=== PATIENT | female | born 1975 | race American Indian/Alaskan Native ===

== ENCOUNTER 2016-10-13 13:33 | Emergency (ER) | payer MEDICAID ==
[2016-10-13 13:33] VITALS: BMI 31.2
[2016-10-13 13:44] VITALS: BP 165/102; PULSE 95; RESP 16; TEMP 98.4; O2SAT 100
[2016-10-13] MEDS ORDERED: Sodium Chloride 0.9% 1,000 ML IV STA (15:37)
[2016-10-13 16:44] LABS: BASO % 0.4 % (0.0-2.0); EOS # 0.1 K/uL (0.0-0.7); EOS % 0.7 % (0.0-4.0); HEMATOCRIT 38.2 % (34.0-47.0); LYMPH # 1.6 K/uL (1.0-4.3); LYMPH % 21.6 % (20.0-40.0); MEAN CELL VOLUME 96.6 fl (81.0-99.0); MEAN CORPUSCULAR HEMOGLOBIN 32.7 pg (27.0-31.0); MEAN CORPUSCULAR HGB CONC 33.8 g/dL (33.0-37.0); MEAN PLATELET VOLUME 7.6 fl (7.2-11.7); MONO # 0.6 K/uL (0.0-0.8); MONO % 8.4 % (0.0-10.0); NEUT # 5.2 K/uL (1.8-7.0); NEUT % 68.9 % (50.0-75.0); NRBC % 0.1 % (0.0-0.0); RED CELL DISTRIBUTION WIDTH 15.8 % (11.5-14.5); WHITE BLOOD COUNT 7.5 K/uL (4.8-10.8)
[2016-10-13 17:00] LABS: ALB/GLOB RATIO 1.1 (1.0-2.1); ALKALINE PHOSPHATASE 91 U/L (38-126); ALT/SGPT 86 U/L (9-52); AST/SGOT 138 U/L (14-36); BILIRUBIN,TOTAL 1.2 mg/dl (0.2-1.3); BLOOD UREA NITROGEN 8 mg/dl (7-17); CALCIUM 9.5 mg/dL (8.4-10.2); CARBON DIOXIDE 25 mmol/L (22-30); CHLORIDE 105 mmol/L (98-107); GFR AFRICAN-AMERICAN > 60; GLUCOSE,RANDOM 103 mg/dL (65-105); LIPASE 316 U/L (23-300); POTASSIUM 3.9 MMOL/L (3.6-5.0); SODIUM 142 mmol/l (132-148); TOTAL PROTEIN 7.8 G/DL (6.3-8.2)
[2016-10-13 17:21] LABS: RBC URINE 3 /hpf (0-3); URINE BACTERIA RARE (<OCC); URINE BILIRUBIN NEGATIVE (NEGATIVE); URINE BLOOD NEGATIVE (NEGATIVE); URINE COLOR YELLOW (YELLOW); URINE GLUCOSE (UA) NEG (Normal); URINE KETONE NEGATIVE (NEGATIVE); URINE LEUKOCYTE ESTERASE NEG Leu/uL (Negative); URINE PROTEIN NEGATIVE (NEGATIVE); URINE UROBILINOGEN 0.2-1.0 mg/dL (0.2-1.0); WBC URINE 1 /hpf (0-5)
--- NOTE | 2016-10-13 17:59 | ED PDOC ---
HPI: General Adult Time Seen by Provider: 10/13/16 15:25 Chief Complaint (Nursing): GI Problem Past Medical History Vital Signs: Last Vital Signs Temp 98.4 F 10/13/16 13:40 Pulse 95 H 10/13/16 13:40 Resp 16 10/13/16 13:40 BP 165/102 H 10/13/16 13:40 Pulse Ox 100 10/13/16 13:40 - Medical History PMH: Diabetes (resolved after bariatic surgery), Gastritis, HTN, Hypercholesterolemia (resolved after bariatric surgery), Sleep Apnea Denies: CAD, CVA, Chronic Kidney Disease - Surgical History Surgical History: - Family History Family History: States: [place], CAD, Diabetes, Hypertension Denies: Stroke - Immunization History Hx Tetanus Toxoid Vaccination: No Hx Influenza Vaccination: No Hx Pneumococcal Vaccination: Yes (prior to sx) - Home Medications Home Medications: Ambulatory Orders Medication Instructions Recorded Omeprazole [Prilosec] 40 mg PO DAILY #30 each 08/21/15 Valsartan 1 tab PO DAILY 02/17/16 Acetaminophen with Codeine 1 tab PO Q6H PRN #15 tab 08/04/16 [Tylenol with Codeine No. 3 300 mg-30 mg] Famotidine [Pepcid] 20 mg PO DAILY PRN #30 tab 10/13/16 Ondansetron ODT [Zofran ODT] 4 mg PO TID #21 odt 10/13/16 - Allergies Allergies/Adverse Reactions: Allergies Allergy/AdvReac Type Severity Reaction Status Date / Time No Known Allergies Allergy Verified 10/13/16 13:40 - Laboratory Results Result Diagrams: 10/13/16 16:00 10/13/16 16:00 - ECG O2 Sat by Pulse Oximetry: 100 Disposition - Clinical Impression Clinical Impression: Gastroenteritis - Patient ED Disposition Is Patient to be Admitted: No - Disposition Disposition: Routine/Home Disposition Time: 17:58 Condition: STABLE Prescriptions: Famotidine [Pepcid] 20 mg PO DAILY PRN #30 tab PRN Reason: Dyspepsia Ondansetron ODT [Zofran ODT] 4 mg PO TID #21 odt Instructions: Gastroenteritis (ED)
--- NOTE | 2016-10-14 08:32 | CARD ---
APPROVED REPORT EKG Measurement Heart [id number] HI [id number] <Conclusion> Sinus rhythm with marked sinus arrhythmia Otherwise normal ECG
== END 2016-10-13 18:04 | disposition home or self-care (01) ==
LOC: H.ER 13:33
DX: K52.9 Noninfective gastroenteritis and colitis, unspecified (principal)

== ENCOUNTER 2016-11-20 19:46 | Inpatient (IN) | payer MEDICAID ==
[2016-11-20 19:46] VITALS: BMI 31.2
[2016-11-20] MEDS ORDERED: Sodium Chloride 0.9% 1,000 ML IV STA ×2 (20:21→21:14)
--- NOTE | 2016-11-20 20:31 | ED PDOC ---
HPI: Abdomen Time Seen by Provider: 11/20/16 20:12 Chief Complaint (Nursing): GI Problem Chief Complaint (Provider): Abdominal pain History Per: Patient History/Exam Limitations: no limitations Onset/Duration Of Symptoms: Days (1) Outside of [place] travel?: No Current Symptoms Are (Timing): Still Present Severity: Moderate Location Of Pain/Discomfort: Epigastric Quality Of Discomfort: "Pain" Associated Symptoms: Vomiting, Diarrhea Additional History Per: Patient Additional Complaint(s): The pt is a 41yo female, had a gastric bypass 2 years ago, presents to the ED for evaluation of epigastric pain with associated nausea, vomiting and diarrhea since this morning. Pt admits to drinking alcohol last night and states when she went home, noticed epigastric discomfort followed y more than 5 episodes of vomiting, initially food colored, then blood tinged and now clear. She also reports 2 episodes of water diarrhea. Pt denies fever, offers no medical complaints. Abnormal Vaginal Bleeding: No Past Medical History Reviewed: Historical Data, Nursing Documentation, Vital Signs Vital Signs: Last Vital Signs Temp 98.7 F 11/20/16 19:59 Pulse 107 H 11/20/16 19:59 Resp 18 11/20/16 19:59 BP 151/103 H 11/20/16 19:59 Pulse Ox 98 11/20/16 20:33 - Medical History PMH: Diabetes (resolved after bariatic surgery), Gastritis, HTN, Hypercholesterolemia (resolved after bariatric surgery) Denies: CAD, CVA, Chronic Kidney Disease, Sleep Apnea - Surgical History Surgical History: - Family History Family History: States: [place], CAD, Diabetes, Hypertension Denies: Stroke - Immunization History Hx Tetanus Toxoid Vaccination: No Hx Influenza Vaccination: No Hx Pneumococcal Vaccination: Yes (prior to sx) - Home Medications Home Medications: Ambulatory Orders Medication Instructions Recorded Lansoprazole [Prevacid] 30 mg PO DAILY 11/20/16 Lisinopril/Hydrochlorothiazide 10 mg PO DAILY 11/20/16 [Lisinopril-Hctz 10-12.5 mg Tab] - Allergies Allergies/Adverse Reactions: Allergies Allergy/AdvReac Type Severity Reaction Status Date / Time No Known Allergies Allergy Verified 10/13/16 13:40 Review of Systems ROS Statement: Except As Marked, All Systems Reviewed And Found Negative Constitutional: Negative for: Fever Gastrointestinal: Positive for: Vomiting, Abdominal Pain, Diarrhea Physical Exam - Reviewed Nursing Documentation Reviewed: Yes Vital Signs Reviewed: Yes - Physical Exam Appears: Positive for: Well, Non-toxic, No Acute Distress Head Exam: Positive for: ATRAUMATIC, NORMAL INSPECTION, NORMOCEPHALIC Skin: Positive for: Normal Color ENT: Positive for: Normal ENT Inspection Neck: Positive for: Normal Cardiovascular/Chest: Positive for: Regular Rate, Rhythm Respiratory: Negative for: Respiratory Distress Gastrointestinal/Abdominal: Positive for: Soft, Tenderness (epig). Negative for : Guarding, Rebound Neurologic/Psych: Positive for: Alert, Oriented - Laboratory Results Result Diagrams: 11/20/16 20:30 11/20/16 20:30 - ECG O2 Sat by Pulse Oximetry: 98 Medical Decision Making Medical Decision Making: Time: 2019 Impression: Gastroenteritis Plan: * Bloodwork * IV fluids * Urinalysis * Protonix * Zofran * Reassess 0000 IMPRESSION: Findings consistent with acute pancreatitis, as detailed above Pt. still having pain and vomiting, will admit for acute pancreatitis, placed on NPO. Dr. Piedra informed of admission. Scribe Attestation: Documented by Molly Palomares acting as a scribe for Dameon Barcenas MD. Provider Attestation: All medical record entries made by the Scribe were at my direction and personally dictated by me. I have reviewed the chart and agree that the record accurately reflects my personal performance of the history, physical exam, medical decision making, and the department course for this patient. I have also personally directed, reviewed, and agree with the discharge instructions and disposition. Disposition - Clinical Impression Clinical Impression: Pancreatitis - Patient ED Disposition Is Patient to be Admitted: No - Disposition Disposition Time: 00:00 Condition: STABLE
[2016-11-20] MEDS ORDERED: Sterile Water 10 ML IV ONE (20:35)
[2016-11-20 20:45] LABS: RBC URINE 2 /hpf (0-3); URINE BILIRUBIN NEGATIVE (NEGATIVE); URINE BLOOD NEGATIVE (NEGATIVE); URINE COLOR YELLOW (YELLOW); URINE GLUCOSE (UA) NEG (Normal); URINE KETONE NEGATIVE (NEGATIVE); URINE LEUKOCYTE ESTERASE NEG Leu/uL (Negative); URINE PROTEIN NEGATIVE (NEGATIVE); URINE UROBILINOGEN 0.2-1.0 mg/dL (0.2-1.0); WBC URINE 1 /hpf (0-5)
[2016-11-20 20:48] LABS: BASO % 0.3 % (0.0-2.0); EOS % 0.5 % (0.0-4.0); HEMATOCRIT 38.6 % (34.0-47.0); LYMPH # 1.4 K/uL (1.0-4.3); LYMPH % 14.9 % (20.0-40.0); MEAN CELL VOLUME 100.8 fl (81.0-99.0); MEAN CORPUSCULAR HEMOGLOBIN 34.8 pg (27.0-31.0); MEAN CORPUSCULAR HGB CONC 34.5 g/dL (33.0-37.0); MEAN PLATELET VOLUME 6.9 fl (7.2-11.7); MONO # 0.5 K/uL (0.0-0.8); MONO % 5.6 % (0.0-10.0); NEUT # 7.3 K/uL (1.8-7.0); NEUT % 78.7 % (50.0-75.0); NRBC % 0.1 % (0.0-0.0); WHITE BLOOD COUNT 9.3 K/uL (4.8-10.8)
[2016-11-20 20:56] LABS: ALB/GLOB RATIO 1.3 (1.0-2.1); ALCOHOL SERUM 90 mg/dl (0-10); ALKALINE PHOSPHATASE 82 U/L (38-126); ALT/SGPT 56 U/L (9-52); AST/SGOT 68 U/L (14-36); BILIRUBIN,TOTAL 0.4 mg/dl (0.2-1.3); BLOOD UREA NITROGEN 7 mg/dl (7-17); CALCIUM 9.4 mg/dL (8.4-10.2); CARBON DIOXIDE 25 mmol/L (22-30); CHLORIDE 102 mmol/L (98-107); GFR AFRICAN-AMERICAN > 60; GLUCOSE,RANDOM 105 mg/dL (65-105); LIPASE 920 U/L (23-300); POTASSIUM 3.9 MMOL/L (3.6-5.0); SODIUM 140 mmol/l (132-148); TOTAL PROTEIN 7.4 G/DL (6.3-8.2)
[2016-11-20] MEDS ORDERED: Iohexol 240 (50 ml) PO ONE (21:14)
[2016-11-20] MEDS ORDERED: Iohexol 300 100 ML IJ ONE (23:27)
[2016-11-20] MEDS ORDERED: Sodium Chloride 0.9% 50 ML IV ONE (23:28)
--- NOTE | 2016-11-21 00:12 | CT ---
EXAM: CT Abdomen and Pelvis With Intravenous Contrast CLINICAL HISTORY: 41 years old, female; Pain; Abdominal pain; Epigastric; Prior surgery; Surgery date: 6+ months; Surgery type: Gastric bypass 01/2015; Additional info: HX of gastric bypass, elevated lipase- epig pain TECHNIQUE: Axial computed tomography images of the abdomen and pelvis with intravenous contrast. This CT exam was performed using one or more of the following dose reduction techniques: automated exposure control, adjustment of the mA and/or kV according to patient size, and/or use of iterative reconstruction technique. Coronal and sagittal reformatted images were created and reviewed. CONTRAST: 95 mL of [id number] administered intravenously. COMPARISON: US - ABDOMEN COMPLETE 08/21/2015 5:39:17 PM FINDINGS: Lower thorax: The bilateral lung bases are clear. ABDOMEN: Liver: No acute findings. Gallbladder and bile ducts: The gallbladder is decompressed. No calcified stones. No significant intra- or extrahepatic biliary ductal dilation. Pancreas: Enlargement of the head of the pancreas, with edema and loss of normal fatty lobulation. Peripancreatic fat stranding is also present, along with moderate free fluid in the lesser sac extending to the retroperitoneum and within the right hepatorenal space. The pancreas enhances homogeneously, without areas suggesting necrosis. Spleen: No acute findings. Adrenals: No acute findings. Kidneys and ureters: No acute findings. No hydronephrosis or renal calculi. No discrete solid mass. PELVIS: Bladder: No acute findings. Reproductive: No acute findings. Appendix: The air filled appendix is of normal caliber (series 3, image 118; series 601, image 47). ABDOMEN and PELVIS: Stomach and bowel: Postoperative change within the upper abdomen, consistent with prior gastric bypass. Peritoneum: As above. Lymph nodes: No pathologically enlarged lymph nodes. Vasculature: Unremarkable. Bones: No acute fracture. Dense infiltration of the soft tissues of the buttock, findings suggesting prior silicone injection, unchanged from description 08/24/2016. IMPRESSION: Findings consistent with acute pancreatitis, as detailed above.
[2016-11-21] MEDS ORDERED: Metoprolol 1 mg/ml Inj IVP ONE (01:54)
[2016-11-21] MEDS ORDERED: Metoprolol 1 mg/ml Inj IVP STA (01:58)
[2016-11-21] MEDS: Sodium Chloride 0.9% 1,000 ML IV SCH ×3 (04:26→19:45)
[2016-11-21] MEDS ORDERED: [UNRECOGNIZED DRUG - OTHER] PO SCH (09:00)
[2016-11-21] MEDS ORDERED: HYDROCHLOROTHIAZIDE PO SCH (09:00)
[2016-11-21] MEDS ORDERED: LISINOPRIL PO SCH (09:00)
--- NOTE | 2016-11-21 16:00 | CP.PCM.HP ---
History of Present Illness - History of Present Illness History of Present Illness: The pt is a 41yo female, had a gastric bypass 2 years ago, presents to the ED for evaluation of epigastric pain with associated nausea, vomiting and diarrhea since this morning. Pt admits to drinking alcohol last night and states when she went home, noticed epigastric discomfort followed y more than 5 episodes of vomiting, initially food colored, then blood tinged and now clear. Present on Admission - Present on Admission Any Indicators Present on Admission: Yes Review of Systems - Gastrointestinal Gastrointestinal: Loose Stools, Vomiting Past Patient History - Infectious Disease Hx of Infectious Diseases: None - Past Medical History & Family History Past Medical History?: Yes - Past Social History Smoking Status: Former Smoker Alcohol: > 2 Drinks/Day - CARDIAC Hx Hypercholesterolemia: Yes (resolved after bariatric surgery) Hx Hypertension: Yes - PULMONARY Hx Respiratory Disorders: No Hx Sleep Apnea: No - NEUROLOGICAL Hx Neurological Disorder: No - HEENT Hx HEENT Problems: No - RENAL Hx Chronic Kidney Disease: No - ENDOCRINE/METABOLIC Hx Endocrine Disorders: No - HEMATOLOGICAL/ONCOLOGICAL Hx AIDS: No Hx Human Immunodeficiency Virus (HIV): No - INTEGUMENTARY Hx Dermatological Problems: No - MUSCULOSKELETAL/RHEUMATOLOGICAL Hx Falls: No - GASTROINTESTINAL Hx Gastritis: Yes Hx Gastroesophageal Reflux: Yes - GENITOURINARY/GYNECOLOGICAL Hx Genitourinary Disorders: No - PSYCHIATRIC Hx Psychophysiologic Disorder: No Hx Substance Use: No - SURGICAL HISTORY Hx Surgeries: Yes Hx Section: Yes Hx Gastric Bypass Surgery: Yes - ANESTHESIA Hx Anesthesia: Yes Hx Anesthesia Reactions: No Hx Malignant Hyperthermia: No Meds Allergies/Adverse Reactions: Allergies Allergy/AdvReac Type Severity Reaction Status Date / Time No Known Allergies Allergy Verified 10/13/16 13:40 Physical Exam - Constitutional Appears: Well, Non-toxic - Head Exam Head Exam: ATRAUMATIC, NORMAL INSPECTION - Eye Exam Pupil Exam: NORMAL ACCOMODATION - ENT Exam ENT Exam: Mucous Membranes Moist - Neck Exam Neck exam: Positive for: Normal Inspection - Respiratory Exam Respiratory Exam: Clear to Auscultation Bilateral, NORMAL BREATHING PATTERN - Cardiovascular Exam Cardiovascular Exam: REGULAR RHYTHM - GI/Abdominal Exam GI & Abdominal Exam: Guarding, Tenderness Additional comments: epigastric area - Extremities Exam Extremities exam: Positive for: normal inspection Results - Vital Signs Recent Vital Signs: Last Vital Signs Temp 98.3 F 11/21/16 15:46 Pulse 78 11/21/16 15:46 Resp 18 06/05/17 15:46 BP 160/89 H 11/21/16 15:46 Pulse Ox 98 11/21/16 15:46 - Labs Result Diagrams: 11/20/16 20:30 11/20/16 20:30 Assessment & Plan - Assessment and Plan (Free Text) Assessment: 41 y/o female with h/o gastric bypass, HTN presented with acute pancreatitis confirmed with CT and lipase 1. acute pancreatitis pt was npo on ivf, will advance to clears GI on consult \pt counseled cont to monitor. 2. GERD cont prevacid 3. HTN cont home meds.
--- NOTE | 2016-11-21 17:13 | CON ---
DATE: 11/21/2016 REFERRING PHYSICIAN: Dr. Lyles. REASON FOR CONSULTATION: Abdominal pain. HISTORY OF PRESENT ILLNESS: This is a lexa 41-year-old female who had a gastric bypass 2 years ago , brought in for epigastric pain and discomfort to the back and upper quadrant. She had 3 or 4 drinks preceding this episode pancreatitis. Vomiting has improved, the nausea has improved. Some epigastric discomfort remains. Otherwise, lying in bed comfortable, in no apparent distress. PAST MEDICAL HISTORY: As above. PAST SURGICAL HISTORY: As above. MEDICATIONS: Have been reviewed. REVIEW OF SYSTEMS: All other systems have been reviewed and negative apart from the HPI. PHYSICAL EXAMINATION: VITAL SIGNS: Here in the hospital are grossly unremarkable. GENERAL: A pleasant middle-aged female lying in bed, comfortable, in no apparent distress. HEAD: Normocephalic, atraumatic. EYES: Pupils equally reactive to light bilaterally. No conjunctival pallor or icterus. NECK: Supple, normal range of motion. No lymphadenopathy appreciated. LUNGS: Coarse breath sounds bilaterally. HEART: S1, S2, regular rate and rhythm. No murmurs appreciated. ABDOMEN: Soft, some discomfort, epigastric region. No rebound, no guarding. RECTAL: Deferred. EXTREMITIES: Pulses present bilaterally. SKIN: Warm, dry and intact. NEUROLOGIC: A and O x 3. LABORATORY DATA: All labs and relevant radiology have been reviewed. CAT scan shows some mild pancr eatitis. The labs include a WBC of 9.3, hemoglobin 13.3, lipase of 920. AST and ALT . Alcohol level was 90. ASSESSMENT AND PLAN: This is a 41-year-old female with likely alcoholic pancreatitis. From a gastro intestinal standpoint, advance diet as tolerated. Consider ultrasound and pain control as needed. A ggressive IV hydration. Thank you for the consult. Edison De Leon MD, PhD cc:Ricardo Lyles [id number] TT: 11/21/2016 17:13:11 Confirmation # [id number] Dictation # [id number]
[2016-11-22] MEDS: Sodium Chloride 0.9% 1,000 ML IV SCH (01:34)
[2016-11-22 08:18] LABS: BASO % 0.2 % (0.0-2.0); EOS # 0.1 K/uL (0.0-0.7); EOS % 1.2 % (0.0-4.0); HEMATOCRIT 35.4 % (34.0-47.0); LYMPH % 14.6 % (20.0-40.0); MEAN CELL VOLUME 100.1 fl (81.0-99.0); MEAN CORPUSCULAR HEMOGLOBIN 34.4 pg (27.0-31.0); MEAN CORPUSCULAR HGB CONC 34.4 g/dL (33.0-37.0); MEAN PLATELET VOLUME 7.1 fl (7.2-11.7); MONO # 0.6 K/uL (0.0-0.8); MONO % 7.9 % (0.0-10.0); NEUT # 5.4 K/uL (1.8-7.0); NEUT % 76.1 % (50.0-75.0); RED CELL DISTRIBUTION WIDTH 12.5 % (11.5-14.5); WHITE BLOOD COUNT 7.1 K/uL (4.8-10.8)
[2016-11-22 08:40] LABS: ALB/GLOB RATIO 1.2 (1.0-2.1); ALKALINE PHOSPHATASE 83 U/L (38-126); ALT/SGPT 40 U/L (9-52); AST/SGOT 39 U/L (14-36); BILIRUBIN,TOTAL 0.9 mg/dl (0.2-1.3); BLOOD UREA NITROGEN 4 mg/dl (7-17); CALCIUM 9.2 mg/dL (8.4-10.2); CARBON DIOXIDE 27 mmol/L (22-30); CHLORIDE 100 mmol/L (98-107); GFR AFRICAN-AMERICAN > 60; GLUCOSE,RANDOM 80 mg/dL (65-105); LIPASE 986 U/L (23-300); POTASSIUM 3.5 MMOL/L (3.6-5.0); SODIUM 137 mmol/l (132-148); TOTAL PROTEIN 6.8 G/DL (6.3-8.2)
[2016-11-22] MEDS ORDERED: Lactated Ringer's 1,000 ML IV SCH ×7 (10:00→19:00)
--- NOTE | 2016-11-22 10:27 | CP.PCM.PN ---
Subjective - Date & Time of Evaluation Date of Evaluation: 11/22/16 Time of Evaluation: 09:00 - Subjective Subjective: Pt here with acute pancreatitis. advanced to clears yesterday. pt c/o inc pain and diarrhea no fever/vomiting at this time. Objective - Vital Signs/Intake and Output Vital Signs (last 24 hours): Temp Pulse Resp BP Pulse Ox 98.9 F 76 18 149/86 100 11/22/16 07:30 11/22/16 08:42 11/22/16 07:30 11/22/16 08:42 11/22/16 07:30 - Medications Medications: Current Medications Hydrochlorothiazide (Microzide) 12.5 mg PO DAILY [facility] Last Admin: 11/22/16 08:43 Dose: 12.5 mg Lactated Ringer's (Lactated Ringer's) 1,000 mls @ 150 mls/hr IV .Q6H40M [facility] Last Admin: 11/22/16 10:07 Dose: 150 mls/hr Lisinopril (Zestril) 10 mg PO DAILY [facility] Last Admin: 11/22/16 08:42 Dose: 10 mg Morphine Sulfate (Morphine) 4 mg IVP Q6 PRN PRN Reason: Pain, severe (8-10) Last Admin: 11/22/16 08:37 Dose: 4 mg Pantoprazole Sodium (Protonix Inj) 40 mg IVP DAILY [facility] Last Admin: 11/22/16 08:42 Dose: 40 mg - Labs Labs: 11/22/16 06:50 11/22/16 06:40 - Constitutional Appears: Well, Non-toxic - Head Exam Head Exam: NORMAL INSPECTION - ENT Exam ENT Exam: Mucous Membranes Moist - Respiratory Exam Respiratory Exam: Clear to Ausculation Bilateral - Cardiovascular Exam Cardiovascular Exam: REGULAR RHYTHM - GI/Abdominal Exam GI & Abdominal Exam: Soft, Tenderness Additional comments: epigastric Assessment and Plan - Assessment and Plan (Free Text) Assessment: 1. Acute pancreatitis Lipase remains elev above 900 pt c/o pain NPO cont IVF GI consulted, will f/u 2. GERD cont prevacid
[2016-11-22] MEDS: Lactated Ringer's 1,000 ML IV SCH ×5 (12:21→22:45)
--- NOTE | 2016-11-22 13:33 | US ---
HISTORY: pancreatitis COMPARISON: CT abdomen/ pelvis 11/20/2016 TECHNIQUE: Sonographic evaluation of the abdomen. FINDINGS: LIVER: Measures 13.8 cm. Normal echogenicity of the liver parenchyma. No mass. No intrahepatic bile duct dilatation. GALLBLADDER: Unremarkable. No gallstones. COMMON BILE DUCT: Measures 3 mm. No stones. No dilatation. PANCREAS: Mild peripancreatic fluid consistent with CT of 11/20/2016. No pancreatic mass. No ductal dilatation. RIGHT KIDNEY: Measures 9.8cm. Normal echogenicity. No calculus, mass, or hydronephrosis. LEFT KIDNEY: Measures 10.3cm. Normal echogenicity. No calculus, mass, or hydronephrosis. SPLEEN: Normal in size and contour. No mass. AORTA: No aneurysmal dilatation. IVC: Unremarkable. OTHER FINDINGS: None. IMPRESSION: Mild peripancreatic fluid consistent with acute pancreatitis. No evidence of cholelithiasis.
[2016-11-23 00:42] VITALS: PULSE 74
[2016-11-23] MEDS: Lactated Ringer's 1,000 ML IV SCH ×4 (01:57→15:36)
[2016-11-23 07:16] LABS: MEAN CELL VOLUME 100.7 fl (81.0-99.0); MEAN CORPUSCULAR HEMOGLOBIN 35.3 pg (27.0-31.0); RED CELL DISTRIBUTION WIDTH 12.6 % (11.5-14.5); WHITE BLOOD COUNT 6.6 K/uL (4.8-10.8)
[2016-11-23 08:39] LABS: BLOOD UREA NITROGEN 3 mg/dl (7-17); CALCIUM 9.2 mg/dL (8.4-10.2); CARBON DIOXIDE 26 mmol/L (22-30); CHLORIDE 99 mmol/L (98-107); GFR AFRICAN-AMERICAN > 60; GLUCOSE,RANDOM 64 mg/dL (65-105); POTASSIUM 3.8 MMOL/L (3.6-5.0); SODIUM 135 mmol/l (132-148)
[2016-11-23 08:54] VITALS: BP 145/88; RESP 20; TEMP 97.8; O2SAT 98
--- NOTE | 2016-11-23 09:13 | CP.PCM.PN ---
Subjective - Date & Time of Evaluation Date of Evaluation: 11/23/16 Time of Evaluation: 08:00 - Subjective Subjective: pt examined at bedside. nad. feeling better, pain is subsiding. Objective - Vital Signs/Intake and Output Vital Signs (last 24 hours): Temp Pulse Resp BP Pulse Ox 97.8 F 74 20 145/88 98 11/23/16 08:53 11/23/16 09:02 11/23/16 08:53 11/23/16 09:02 11/23/16 08:53 - Medications Medications: Current Medications Acetaminophen (Tylenol 325mg Tab) 650 mg PO Q4 PRN PRN Reason: Pain, moderate (4-7) Hydrochlorothiazide (Microzide) 12.5 mg PO DAILY [facility] Last Admin: 11/23/16 09:01 Dose: 12.5 mg Hydromorphone HCl (Dilaudid) 1 mg IVP Q4 PRN PRN Reason: Pain, severe (8-10) Last Admin: 11/23/16 03:53 Dose: 1 mg Lactated Ringer's (Lactated Ringer's) 1,000 mls @ 250 mls/hr IV .Q4H [facility] Last Admin: 11/23/16 06:03 Dose: 250 mls/hr Lisinopril (Zestril) 10 mg PO DAILY [facility] Last Admin: 11/23/16 09:02 Dose: 10 mg Ondansetron HCl (Zofran Inj) 4 mg IVP Q6 PRN PRN Reason: Nausea/Vomiting Pantoprazole Sodium (Protonix Inj) 40 mg IVP DAILY [facility] Last Admin: 11/23/16 09:02 Dose: 40 mg - Labs Labs: 11/23/16 06:25 11/23/16 06:25 Assessment and Plan - Assessment and Plan (Free Text) Assessment: acute pancreatitis cont ivf pain improving start clear liquid diet will monitor f/u GI gerd cont prevacid adn protonix
== END 2016-11-23 16:06 | disposition home or self-care (01) | DRG 204 ==
LOC: H.ER 19:46 → H.ERHOLD 11-21 00:16 → H.MEDSURG1 11-21 03:05 → OBSVTOIN 11-21 17:43
PROVIDERS: ADMIT Family Medicine; ATTEND Family Medicine
DX: K85.90 Acute pancreatitis without necrosis or infection, unspecified (principal); I10 Essential (primary) hypertension; K21.9 Gastro-esophageal reflux disease without esophagitis; Z98.84 Bariatric surgery status; K29.70 Gastritis, unspecified, without bleeding; Z82.49 Family history of ischemic heart disease and other diseases of the circulatory system; Z83.3 Family history of diabetes mellitus; Z87.891 Personal history of nicotine dependence

== ENCOUNTER 2017-01-10 17:57 | Inpatient (IN) | payer MEDICAID ==
[2017-01-10 17:58] VITALS: BMI 31.2
[2017-01-10] MEDS ORDERED: Sodium Chloride 0.9% 1,000 ML IV STA (18:44)
[2017-01-10] MEDS ORDERED: Morphine 4 MG/ML VIAL IVP ONE ×2 (18:44→21:18)
--- NOTE | 2017-01-10 18:46 | ED PDOC ---
HPI: Abdomen Time Seen by Provider: 01/10/17 18:45 Chief Complaint (Nursing): Abdominal Pain Chief Complaint (Provider): abdominal pain History Per: Patient (41 y/o female h/o pancreatitis secondary to gastric bypass sx 2 years ago here with reoccurrence. States she has been noncompliant with dexilant as she cannot always afford it. Denies any vomiting but notes increased epigastric pain and nausea. ), Other ([place]) Past Medical History Reviewed: Historical Data, Nursing Documentation, Vital Signs Vital Signs: Last Vital Signs Temp 98.5 F 01/10/17 18:20 Pulse 110 H 01/10/17 18:20 Resp 18 01/10/17 18:20 BP 130/61 01/10/17 18:20 Pulse Ox 100 01/10/17 18:46 - Medical History PMH: Diabetes (resolved after bariatic surgery), Gastritis, HTN, Hypercholesterolemia (resolved after bariatric surgery) Denies: CAD, CVA, HIV, Chronic Kidney Disease, Sleep Apnea Other PMH: on lisinopril and dexilant - Surgical History Surgical History: - Family History Family History: States: No Known Family Hx, [place], CAD, Diabetes, Hypertension Denies: Stroke - Immunization History Hx Tetanus Toxoid Vaccination: No Hx Influenza Vaccination: No Hx Pneumococcal Vaccination: Yes (prior to sx) - Home Medications Home Medications: Ambulatory Orders Medication Instructions Recorded Lansoprazole [Prevacid] 30 mg PO DAILY 11/20/16 Lisinopril/Hydrochlorothiazide 10 mg PO DAILY 11/20/16 [Lisinopril-Hctz 10-12.5 mg Tab] - Allergies Allergies/Adverse Reactions: Allergies Allergy/AdvReac Type Severity Reaction Status Date / Time No Known Allergies Allergy Verified 10/13/16 13:40 Review of Systems ROS Statement: Except As Marked, All Systems Reviewed And Found Negative Physical Exam - Reviewed Nursing Documentation Reviewed: Yes Vital Signs Reviewed: Yes - Physical Exam Appears: Positive for: Well, Non-toxic, No Acute Distress Head Exam: Positive for: ATRAUMATIC, NORMAL INSPECTION, NORMOCEPHALIC Skin: Positive for: Normal Color, Warm, DRY Eye Exam: Positive for: EOMI, Normal appearance, PERRL ENT: Positive for: Normal ENT Inspection Neck: Positive for: Normal, Painless ROM Cardiovascular/Chest: Positive for: Regular Rate, Rhythm Respiratory: Positive for: CNT, Normal Breath Sounds Gastrointestinal/Abdominal: Positive for: Normal Exam, Bowel Sounds, Soft Back: Positive for: Normal Inspection Extremity: Positive for: Normal ROM Neurologic/Psych: Positive for: Alert, Oriented - Laboratory Results Urine POC: Negative Urine dip results: Negative for: Leukocyte Esterase, Blood, Nitrate, Ketones, Glucose, Bilirubin, Protein - ECG O2 Sat by Pulse Oximetry: 100 - Progress ED Course And Treament: pepcid 20 iv zofran 4mg iv ns 1liter wide open morphine 2mg iv Disposition - Clinical Impression Clinical Impression: Abdominal pain in female - Patient ED Disposition Is Patient to be Admitted: Transfer of Care - Disposition Disposition: Transfer of Care Disposition Time: 20:05 Condition: FAIR Patient Signed Over To: Giovanna Posey Handoff Comments: bloodwork/possible admission
[2017-01-10 20:20] LABS: BASO % 0.6 % (0.0-2.0); EOS # 0.1 K/uL (0.0-0.7); EOS % 0.9 % (0.0-4.0); HEMOGLOBIN 15.1 g/dL (12.0-16.0); LYMPH # 2.4 K/uL (1.0-4.3); LYMPH % 30.5 % (20.0-40.0); MEAN CELL VOLUME 97.7 fl (81.0-99.0); MEAN CORPUSCULAR HEMOGLOBIN 32.7 pg (27.0-31.0); MEAN CORPUSCULAR HGB CONC 33.5 g/dL (33.0-37.0); MEAN PLATELET VOLUME 7.4 fl (7.2-11.7); MONO # 0.5 K/uL (0.0-0.8); MONO % 6.7 % (0.0-10.0); NEUT # 4.7 K/uL (1.8-7.0); NEUT % 61.3 % (50.0-75.0); NRBC % 0.1 % (0.0-0.0); RBC 4.6 Mil/uL (3.80-5.20); RED CELL DISTRIBUTION WIDTH 12.9 % (11.5-14.5); WHITE BLOOD COUNT 7.7 K/uL (4.8-10.8)
[2017-01-10 20:21] LABS: BARBITURATES, UR NEGATIVE (NEGATIVE); BENZODIAZEPINES, UR NEGATIVE (NEGATIVE); OPIATES, UR NEGATIVE (NEGATIVE); PHENCYCLIDINE, UR NEGATIVE (NEGATIVE)
[2017-01-10 20:37] LABS: ALB/GLOB RATIO 1.3 (1.0-2.1); ALBUMIN 4.5 g/dL (3.5-5.0); ALT/SGPT 91 U/L (9-52); AST/SGOT 168 U/L (14-36); BLOOD UREA NITROGEN 11 mg/dl (7-17); CALCIUM 10.1 mg/dL (8.4-10.2); GFR AFRICAN-AMERICAN > 60; GFR NON-AFRICAN AMERICAN > 60; LIPASE 538 U/L (23-300)
[2017-01-10] MEDS ORDERED: Iohexol 300 100 ML IJ ONE (23:09)
[2017-01-10] MEDS ORDERED: Sodium Chloride 0.9% 50 ML IV ONE (23:10)
--- NOTE | 2017-01-11 00:08 | ED PDOC ---
- Laboratory Results Result Diagrams: 01/10/17 19:55 01/10/17 19:55 Urine POC: Negative - ECG O2 Sat by Pulse Oximetry: 100 - Progress ED Course And Treament: EXAM: CT Abdomen and Pelvis With Intravenous Contrast CLINICAL HISTORY: 41 years old, female; Pain; Abdominal pain; Generalized; Prior surgery; Surgery date: 6+ months; Surgery type: Gastric bypass 2 years ago; Additional info: Abd pain, elevated lipase TECHNIQUE: Axial computed tomography images of the abdomen and pelvis with intravenous contrast. This CT exam was performed using one or more of the following dose reduction techniques : automated exposure control, adjustment of the mA and/or kV according to patient size, and/ or use of iterative reconstruction technique. Coronal and sagittal reformatted images were created and reviewed. CONTRAST: 95 mL of [id number] administered intravenously. EXAM DATE/TIME: Exam ordered 01/10/2017 9:18 PM COMPARISON: CT - ABD PELVIS PO IV CONTRAST 11/20/2016 11:44:30 PM FINDINGS: Lower thorax: No acute findings. ABDOMEN: Liver: There is fatty infiltration of the liver. Gallbladder and bile ducts: Unremarkable. No calcified stones. No ductal dilation. Pancreas: There is trace fluid and edema around the proximal duodenal sweep with slight extension along the anterior pararenal fascia on the right and appears to include the pancreatic head consistent with minimal pancreatitis of the head. Some edema is suggested in the head/ uncinate. No ductal dilation. Spleen: Unremarkable. No splenomegaly. Adrenals: Unremarkable. No mass. Kidneys and ureters: Unremarkable. No solid mass. No hydronephrosis. Stomach and bowel: Status post gastric bypass. The bypassed stomach is collapsed. Minimal colonic wall thickening of the left colon beginning at the splenic flexure. There are a few colonic diverticula without diverticulitis. No obstruction. Appendix: A normal appendix is seen. PELVIS: Bladder: Unremarkable. No mass. Reproductive: Unremarkable as visualized. ABDOMEN and PELVIS: Intraperitoneal space: Unremarkable. No free air. No significant fluid collection. Bones/joints: No acute fracture. No dislocation. Soft tissues: Nodular induration of gluteal subcutaneous fat bilaterally. Vasculature: Unremarkable. No abdominal aortic aneurysm. Lymph nodes: Unremarkable. No enlarged lymph nodes. IMPRESSION: 1. Minimal pancreatitis of the head/uncinate which is considerably decreased since 11/20/2016. 2. Nodular induration of the gluteal fat bilaterally which is similar to the prior study of 11/20/2016. 3. Status post gastric bypass. 4. Fatty infiltration of the liver. 5. Minimal colonic diverticulosis without diverticulitis. 6. Minimal nonspecific left colitis from splenic flexure to the rectum which is similar to the prior study. On re-eval, patient still with no improvement of pain after second morphine dose given. IV dilaudid, IV cipro, IV flagyl, IV fluids ordered Case discussed with Sergio Santoro [employer] for placement in observation. Disposition - Clinical Impression Clinical Impression: Pancreatitis, Colitis - POA Present On Arrival: None - Disposition Disposition: Hospitalized as Observation Patient Disposition Time: 00:24 Condition: FAIR
[2017-01-11] MEDS ORDERED: Sodium Chloride 0.9% 1,000 ML IV STA (00:17)
[2017-01-11] MEDS ORDERED: Ciprofloxacin 400mg/200ml D5W 400 MG/200 ML BAG IV ONE (00:21)
[2017-01-11] MEDS ORDERED: metroNIDAZOLE 500mg/100ml NS 100 ML IV STA (00:21)
[2017-01-11] MEDS ORDERED: Ciprofloxacin 400mg/200ml D5W 400 MG/200 ML BAG IVPB ONE (00:47)
[2017-01-11] MEDS ORDERED: metroNIDAZOLE 500mg/100ml NS 100 ML IVPB ONE (02:16)
--- NOTE | 2017-01-11 07:25 | CP.PCM.HP ---
History of Present Illness - History of Present Illness History of Present Illness: pt admitted for n/v/d, abd pain. dx w/ pancreatitis and colitis. has h/o same. has h/o alcohol abuse. no f/c, n/v/d at present. started w/ s/s 2 days ago. bw and imaging noted. Present on Admission - Present on Admission Any Indicators Present on Admission: No Review of Systems - Gastrointestinal Gastrointestinal: As Per HPI, Abdominal Pain, Diarrhea, Nausea, Vomiting Past Patient History - Infectious Disease Hx of Infectious Diseases: None - Past Medical History & Family History Past Medical History?: Yes - Past Social History Smoking Status: Former Smoker - CARDIAC Hx Cardiac Disorders: Yes Hx Hypercholesterolemia: Yes (resolved after bariatric surgery) Hx Hypertension: Yes - PULMONARY Hx Respiratory Disorders: No - NEUROLOGICAL Hx Neurological Disorder: No - HEENT Hx HEENT Problems: No - RENAL Hx Chronic Kidney Disease: No - ENDOCRINE/METABOLIC Hx Endocrine Disorders: No - HEMATOLOGICAL/ONCOLOGICAL Hx Blood Disorders: No Hx Human Immunodeficiency Virus (HIV): No - INTEGUMENTARY Hx Dermatological Problems: No - MUSCULOSKELETAL/RHEUMATOLOGICAL Hx Musculoskeletal Disorders: No Hx Falls: No - GASTROINTESTINAL Hx Gastrointestinal Disorders: Yes Hx Gastritis: Yes Hx Gastroesophageal Reflux: Yes Hx Pancreatitis: Yes - GENITOURINARY/GYNECOLOGICAL Hx Genitourinary Disorders: No - PSYCHIATRIC Hx Psychophysiologic Disorder: No Hx Substance Use: No - SURGICAL HISTORY Hx Surgeries: Yes Hx Section: Yes Hx Gastric Bypass Surgery: Yes - ANESTHESIA Hx Anesthesia: Yes Hx Anesthesia Reactions: No Hx Malignant Hyperthermia: No Meds Allergies/Adverse Reactions: Allergies Allergy/AdvReac Type Severity Reaction Status Date / Time No Known Allergies Allergy Verified 01/11/17 00:48 Physical Exam - Constitutional Appears: Well, Non-toxic, No Acute Distress - Head Exam Head Exam: ATRAUMATIC, NORMAL INSPECTION, NORMOCEPHALIC - Eye Exam Eye Exam: EOMI, Normal appearance, PERRL Pupil Exam: NORMAL ACCOMODATION, PERRL - ENT Exam ENT Exam: Mucous Membranes Moist, Normal Exam - Neck Exam Neck exam: Positive for: Normal Inspection - Respiratory Exam Respiratory Exam: Clear to Auscultation Bilateral, NORMAL BREATHING PATTERN - Cardiovascular Exam Cardiovascular Exam: REGULAR RHYTHM, RRR, +S1, +S2 - GI/Abdominal Exam GI & Abdominal Exam: Normal Bowel Sounds, Soft, Tenderness - Extremities Exam Extremities exam: Positive for: full ROM, normal capillary refill, normal inspection, pedal pulses present - Back Exam Back exam: FULL ROM, NORMAL INSPECTION - Neurological Exam Neurological exam: Alert, CN II-XII Intact, Normal Gait, Oriented x3, Reflexes Normal - Psychiatric Exam Psychiatric exam: Normal Affect, Normal Mood - Skin Skin Exam: Dry, Intact, Normal Color, Warm Results - Vital Signs Recent Vital Signs: Last Vital Signs Temp 97.8 F 01/11/17 05:51 Pulse 80 01/11/17 05:51 Resp 20 01/11/17 05:51 BP 126/82 01/11/17 05:51 Pulse Ox 98 01/11/17 05:51 - Labs Result Diagrams: 01/11/17 06:10 01/11/17 06:10 Assessment & Plan (1) DVT prophylaxis Assessment and Plan: scd nad aehose ambulation Status: Acute (2) Colitis Assessment and Plan: cipro/flagyl pain control gi npo ivf Status: Acute (3) Pancreatitis Assessment and Plan: pain control gi npo ivf abd us ct noted Status: Acute Decision To Admit - Pt Status Changed To: Hospital Disposition Of: Observation - . Bed Request Type: Med/Surg Admitting Physician: Darryn Oneill
[2017-01-11 07:38] LABS: ALB/GLOB RATIO 1.2 (1.0-2.1); ALBUMIN 3.5 g/dL (3.5-5.0); ALT/SGPT 66 U/L (9-52); AMYLASE 194 U/L (30-110); AST/SGOT 107 U/L (14-36); BLOOD UREA NITROGEN 9 mg/dl (7-17); GFR AFRICAN-AMERICAN > 60; GFR NON-AFRICAN AMERICAN > 60; LIPASE 1862 U/L (23-300)
[2017-01-11 07:55] LABS: HEMOGLOBIN 12.8 g/dL (12.0-16.0); MEAN CELL VOLUME 97.9 fl (81.0-99.0); MEAN CORPUSCULAR HEMOGLOBIN 32.9 pg (27.0-31.0); MEAN CORPUSCULAR HGB CONC 33.7 g/dL (33.0-37.0); RBC 3.89 Mil/uL (3.80-5.20); RED CELL DISTRIBUTION WIDTH 12.6 % (11.5-14.5); WHITE BLOOD COUNT 8.3 K/uL (4.8-10.8)
--- NOTE | 2017-01-11 08:52 | CT ---
PROCEDURE: CT Abdomen and Pelvis with contrast HISTORY: abd pain, elevated lipase COMPARISON: Abdomen pelvis CT 11/20/2016. TECHNIQUE: Contrast dose: Omnipaque 300, 95 cc. Radiation dose: Total exam DLP = 997 mGy-cm. This CT exam was performed using one or more of the following dose reduction techniques: Automated exposure control, adjustment of the mA and/or kV according to patient size, and/or use of iterative reconstruction technique. FINDINGS: LOWER THORAX: Unremarkable. LIVER: Persistent diffuse fatty infiltration is appreciated throughout the liver with no prominent intrahepatic biliary dilatation evident. GALLBLADDER AND BILE DUCTS: Distended but otherwise unremarkable. No radiodense urolithiasis appreciable. PANCREAS: Prior edematous pattern is markedly improved however. Pancreatic reactive change persist round a mildly prominent pancreatic head suspicious for chronic or recurrent pancreatitis. Further clinical correlation is advised. Discrete mass is not clearly identified and there is no pancreatic duct dilatation appreciated. Sympathetic edematous changes are likely present in the mid to distal duodenum. SPLEEN: Unremarkable. ADRENALS: Unremarkable. No mass. KIDNEYS AND URETERS: Unremarkable. No hydronephrosis. No solid mass. VASCULATURE: Unremarkable. No aortic aneurysm. BOWEL: Postop change again seen related to the stomach. No oral contrast has been administered limiting the evaluation of the bowel overall. No obstruction. No gross mural thickening. APPENDIX: Normal but retrocecal appendix. PERITONEUM: Unremarkable. No free fluid. No free air. LYMPH NODES: Unremarkable. No enlarged lymph nodes. BLADDER: Unremarkable. REPRODUCTIVE: Unremarkable. BONES: No acute fracture. OTHER FINDINGS: Heterogeneous density throughout the buttocks suggests multifocal buttocks injection granulomata bilaterally. IMPRESSION: 1. Recurrent or residual pancreatitis is suggested the pancreatic head with the overall pancreas less edematous than previously seen. The gallbladder is distended however no radiodense cholelithiasis or additional suspicious gallbladder findings identified at this time. Further clinical correlation advised. 2. Diffuse fatty infiltration is again seen throughout the liver. 3. Postop changes are again seen related to the stomach. 4. Heterogeneous density at the bilateral buttocks related to multifocal prior silicon injections.
[2017-01-11] MEDS ORDERED: Dextrose 5%/0.45% NS 1,000 ML IV SCH (09:15)
[2017-01-11] MEDS: Lactated Ringer's 1,000 ML IV SCH ×3 (11:49→17:49)
--- NOTE | 2017-01-11 13:59 | US ---
HISTORY: pancreatitis COMPARISON: None. TECHNIQUE: Sonographic evaluation of the right upper quadrant of the abdomen. FINDINGS: LIVER: Measures 15.9 cm in length. Fatty liver suggested, in agreement with prior abdomen pelvis CT 01/10/2017. No mass. No intrahepatic bile duct dilatation. GALLBLADDER: The gallbladder is distended but otherwise appears unremarkable. . COMMON BILE DUCT: Measures 2.8 mm. No stones. No dilatation. PANCREAS: Trace peripancreatic fluid is seen without prominent pancreatic duct dilatation. This is likely a function of the patient's known pancreatitis. No obvious pseudocyst development at this time. RIGHT KIDNEY: Measures 11.0 cm in length. Normal echogenicity. No calculus, mass, or hydronephrosis. Trace right para renal/ perinephric fluid is appreciated likely as a function of pancreatitis as seen in prior CT although appearing renal fluid was not appreciated at that time. AORTA: No aneurysmal dilatation. IVC: Unremarkable. OTHER FINDINGS: None . IMPRESSION: Distended gallbladder is appreciable normal otherwise biliary tree caliber overall. Trace peripancreatic and para renal as well as perinephric fluid is appreciated which resulted function of pancreatitis. This is slightly more fluid particularly at the right para renal space than seen in prior CT 04/12/2017. Clinical and CT follow-up are advised.
[2017-01-11] MEDS: Ciprofloxacin 200mg/100ml D5W 100 ML IVPB SCH ×2 (14:50→20:25)
[2017-01-11] MEDS: metroNIDAZOLE 500mg/100ml NS 100 ML IVPB SCH ×2 (14:51→17:49)
[2017-01-11] MEDS: Simethicone 80 mg Chewtab PO PRN ×2 (14:52→20:28)
--- NOTE | 2017-01-11 15:32 | CP.PCM.CON ---
<Everton Walker - Last Filed: 01/11/17 16:14> History of Present Illness - History of Present Illness History of Present Illness: Surgery Consult Note. Dr. Peralta CC: Abdominal Pain 41yo F with PMHx of HTN, previous pancreatitis, here for evaluation of Abdominal pain. Patient states that she started having abdominal pain 2 days ago and came into the ED yesterday for further evaluation. Pain is located in the epigastric area, described as sharp, sever, stabbing. Associated with nausea and vomiting, non-bilious, non-bloody. Also c/o diarrhea for two days, loose, no blood, and it has resolved now. Pain and symptoms are similar to abdominal pain she experienced 1 month ago when she was diagnosed with alcoholic pancreatitis, was admitted in the hospital for 3 days. She states that her last alcohol use was 3 days ago, and she drank ~5 small glasses of wine and some vodka. She also c/o bloating and gassy feeling. She denies any CP/ SOB. No F/C. No headaches. No Dizziness. No urinary changes. PMHx: HTN. ETOH Pancreatitis 1 month ago. PSHx: Left Knee, Gastric Bypass [address] Roberts Family Hx: Mom/Sister - HTN, Asthma, DM Social Hx: Former 1/2ppd smoker quit 2 years ago. Current ETOH use, weekly. Denies any illicit drugs. NKDA Review of Systems - Review of Systems All systems: reviewed and no additional remarkable complaints except - Constitutional Constitutional: absent: Chills, Fever - Cardiovascular Cardiovascular: absent: Chest Pain, Dyspnea - Gastrointestinal Gastrointestinal: Abdominal Pain, Bloating, Diarrhea, Nausea, Vomiting. absent : Hematemesis, Hematochezia - Genitourinary Genitourinary: absent: Dysuria Past Patient History - Infectious Disease Hx of Infectious Diseases: None - Past Medical History & Family History Past Medical History?: Yes Past Family History: Reviewed and not pertinent - Past Social History Smoking Status: Former Smoker - CARDIAC Hx Cardiac Disorders: Yes Hx Hypercholesterolemia: Yes (resolved after bariatric surgery) Hx Hypertension: Yes - PULMONARY Hx Respiratory Disorders: No - NEUROLOGICAL Hx Neurological Disorder: No - HEENT Hx HEENT Problems: No - RENAL Hx Chronic Kidney Disease: No - ENDOCRINE/METABOLIC Hx Endocrine Disorders: No - HEMATOLOGICAL/ONCOLOGICAL Hx Blood Disorders: No Hx Human Immunodeficiency Virus (HIV): No - INTEGUMENTARY Hx Dermatological Problems: No - MUSCULOSKELETAL/RHEUMATOLOGICAL Hx Musculoskeletal Disorders: No Hx Falls: No - GASTROINTESTINAL Hx Gastrointestinal Disorders: Yes Hx Gastritis: Yes Hx Gastroesophageal Reflux: Yes Hx Pancreatitis: Yes - GENITOURINARY/GYNECOLOGICAL Hx Genitourinary Disorders: No - PSYCHIATRIC Hx Psychophysiologic Disorder: No Hx Substance Use: No - SURGICAL HISTORY Hx Surgeries: Yes Hx Section: Yes Hx Gastric Bypass Surgery: Yes - ANESTHESIA Hx Anesthesia: Yes Hx Anesthesia Reactions: No Hx Malignant Hyperthermia: No Meds Allergies/Adverse Reactions: Allergies Allergy/AdvReac Type Severity Reaction Status Date / Time No Known Allergies Allergy Verified 01/11/17 00:48 - Medications Medications: Current Medications Famotidine (Pepcid) 20 mg IVP Q12 [facility] Last Admin: 01/11/17 09:49 Dose: 20 mg Hydromorphone HCl (Dilaudid) 1 mg IVP Q4H PRN PRN Reason: Pain, severe (8-10) Last Admin: 01/11/17 09:49 Dose: 1 mg Lactated Ringer's (Lactated Ringer's) 1,000 mls @ 250 mls/hr IV .Q4H [facility] Last Admin: 01/11/17 11:49 Dose: 250 mls/hr Ciprofloxacin (Cipro 200mg/100ml D5w) 100 mls @ 100 mls/hr IVPB Q12 [facility] Last Admin: 01/11/17 14:50 Dose: 100 mls/hr Metronidazole (Flagyl 500mg/100ml Ns) 100 mls @ 100 mls/hr IVPB Q8 [facility] Last Admin: 01/11/17 14:51 Dose: 100 mls/hr Lisinopril (Zestril) 10 mg PO DAILY [facility] Last Admin: 01/11/17 09:50 Dose: 10 mg Ondansetron HCl (Zofran Inj) 4 mg IVP Q6 PRN PRN Reason: Nausea/Vomiting Last Admin: 01/11/17 11:46 Dose: 4 mg Simethicone (Mylicon Chew Tab) 80 mg PO TID PRN PRN Reason: Flatulence Last Admin: 01/11/17 14:52 Dose: 80 mg Physical Exam - Constitutional Appears: Well, No Acute Distress - Head Exam Head Exam: ATRAUMATIC, NORMAL INSPECTION, NORMOCEPHALIC - Eye Exam Eye Exam: EOMI - ENT Exam ENT Exam: Mucous Membranes Moist - Respiratory Exam Respiratory Exam: NORMAL BREATHING PATTERN - GI/Abdominal Exam GI & Abdominal Exam: Soft Additional comments: soft, Mild distention, Epigastric tenderness. No rebound, no guarding. No Sue 's sign. - Extremities Exam Extremities exam: Positive for: normal inspection. Negative for: calf tenderness, pedal edema - Neurological Exam Neurological exam: Alert, Oriented x3 - Skin Skin Exam: Dry, Intact, Normal Color, Warm Results - Vital Signs Recent Vital Signs: Last Vital Signs Temp 98.1 F 01/11/17 12:02 Pulse 107 H 01/11/17 12:02 Resp 18 01/11/17 12:02 BP 134/89 01/11/17 09:50 Pulse Ox 100 01/11/17 12:02 - Labs Result Diagrams: 01/11/17 06:10 01/11/17 06:10 Assessment & Plan - Assessment and Plan (Free Text) Assessment: 41yo F with Acute Alcoholic Pancreatitis - CT - Evidence of residual pancreatitis. Improved slightly compared to 1 month ago. - Amylase/Lipase elevated - Epigastric tenderness - Abd US - Distended GB, no apparent stones. CBD 2.8mm - Transaminitis noted - Aggressive IV fluids - Pain management - Zofran prn - f/u GI recs - No plans for acute surgical intervention - will follow Discussed case with Dr. Kathryn Walker PGY1 Surgery pager: [phone] <Bertram Peralta - Last Filed: 01/12/17 17:37> History of Present Illness - History of Present Illness History of Present Illness: Patient was seen and examined at the bedside. Agree with resident's note above Meds - Medications Medications: Current Medications Famotidine (Pepcid) 20 mg IVP Q12 [facility] Last Admin: 01/12/17 11:22 Dose: 20 mg Hydromorphone HCl (Dilaudid) 2 mg IVP Q3 PRN PRN Reason: Pain, severe (8-10) Ciprofloxacin (Cipro 200mg/100ml D5w) 100 mls @ 100 mls/hr IVPB Q12 [facility] Last Admin: 01/12/17 11:21 Dose: 100 mls/hr Metronidazole (Flagyl 500mg/100ml Ns) 100 mls @ 100 mls/hr IVPB Q8 [facility] Last Admin: 01/12/17 08:46 Dose: 100 mls/hr Lactated Ringer's (Lactated Ringer's) 1,000 mls @ 300 mls/hr IV .Q3H20M [facility] Stop: 01/13/17 12:49 Last Admin: 01/12/17 16:28 Dose: 300 mls/hr Lactated Ringer's (Lactated Ringer's) 1,000 mls @ 999 mls/hr IV .Q1H1M [facility] Stop: 01/13/17 13:01 Last Admin: 01/12/17 16:30 Dose: 999 mls/hr Ketorolac Tromethamine (Toradol) 30 mg IVP Q6 [facility] Stop: 01/13/17 16:00 Last Admin: 01/12/17 16:23 Dose: 30 mg Lisinopril (Zestril) 10 mg PO DAILY [facility] Last Admin: 01/12/17 08:47 Dose: 10 mg Lisinopril (Zestril) 20 mg PO DAILY [facility] Last Admin: 01/12/17 12:48 Dose: 20 mg Metoclopramide HCl (Reglan) 10 mg IVP Q6 PRN PRN Reason: Nausea/Vomiting Last Admin: 01/12/17 04:03 Dose: 10 mg Ondansetron HCl (Zofran Inj) 4 mg IVP Q6 PRN PRN Reason: Nausea/Vomiting Last Admin: 01/12/17 08:48 Dose: 4 mg Simethicone (Mylicon Chew Tab) 80 mg PO TID PRN PRN Reason: Flatulence Last Admin: 01/12/17 08:49 Dose: 80 mg Results - Vital Signs Recent Vital Signs: Last Vital Signs Temp 98.6 F 01/12/17 15:42 Pulse 106 H 01/12/17 15:42 Resp 20 01/12/17 15:42 BP 155/102 H 01/12/17 15:42 Pulse Ox 96 01/12/17 15:42 - Labs Result Diagrams: 01/12/17 06:00 01/12/17 06:00 Labs: Laboratory Results - last 24 hr 01/12/17 01/12/17 06:00 06:00 WBC 12.9 H D RBC 4.41 Hgb 14.5 Hct 43.1 MCV 97.7 MCH 32.9 H MCHC 33.7 RDW 12.7 Plt Count 291 MPV 7.6 Neut % (Auto) 88.9 H Lymph % (Auto) 5.7 L [place] % (Auto) 5.4 Eos % (Auto) 0.0 Baso % (Auto) 0.0 Neut # 11.5 H Lymph # 0.7 L [place] # 0.7 Eos # 0.0 Baso # 0.0 Neutrophils % (Manual) 87 H Lymphocytes % (Manual) 7 L Reactive Lymphs % 1 H Monocytes % (Manual) 4 Basophils % (Manual) 1 Platelet Estimate Normal RBC Morphology Normal Sodium 137 Potassium 3.9 Chloride 103 Carbon Dioxide 25 Anion Gap 12 BUN 5 L Creatinine 0.7 Est GFR ( Amer) > 60 Est GFR (Non-Af Amer) > 60 Random Glucose 111 H Calcium 9.3 Total Bilirubin 1.0 AST 53 H D ALT 44 Alkaline Phosphatase 75 Total Protein 6.5 Albumin 3.5 Globulin 3.0 Albumin/Globulin Ratio 1.2 Amylase 497 H D Lipase 4888 H
--- NOTE | 2017-01-11 22:00 | CON ---
DATE: 01/11/2017 REFERRING DOCTOR: Dr. Santoro. REASON FOR CONSULTATION: Pancreatitis. HISTORY OF PRESENT ILLNESS: This is a very 41-year-old female. The patient had a history of gastric bypass several years ago. She had a Dean-En-Y, apparently, comes in now with pancreatitis second episode in few months, with epigastric discomfort radiating to the back with some nausea and vomiting. The pain is actually stable, but still present and now it persists. No vomiting. Currently, lying in bed comfortably, in no apparent distress. PAST MEDICAL HISTORY: As above. PAST SURGICAL HISTORY: As above. MEDICATIONS: Have been reviewed. REVIEW OF SYSTEMS: Have been reviewed and negative apart from the HPI. PHYSICAL EXAMINATION: GENERAL: A pleasant middle-aged female, lying comfortably in the bed, in no apparent distress. VITAL SIGNS: During hospital grossly unremarkable. HEENT: Head is normocephalic and atraumatic. Eyes, pupils are equal, round, and reactive to light bilaterally. No conjunctival pallor or icterus.. NECK: Supple. Normal range of motion. No lymphadenopathy appreciated. CARDIOPULMONARY: S1 and S2. Regular rate, and rhythm. No murmurs appreciated. LUNGS: Coarse breath sounds bilaterally. ABDOMEN: Soft. Some discomfort. No rebound. No guarding. RECTAL: Deferred. LABORATORY DATA: All labs and radiology have been reviewed. WBC is 8.3, hemoglobin is 12.8, which is down from 15.1. Lipase is 1862 up from 538, amylase of 94. Bilirubin is normal, AST and ALT 107/66. U-tox is negative. CAT scan shows recurrence of the pancreatitis of the pancreas head, improved from previous. No cholelithiasis noted. ASSESSMENT AND PLAN: This is a 41-year-old female with recurrent pancreatitis. At this point, aggressive IV hydration, bolusing, and increase the rates of LR. Ultrasound is pending. We will consider other imaging modalities. From a GI standpoint, MRCP to exclude pancreatic divisum. We will follow the patient with you. Thank you for the consult. Edison De Leon MD/ PhD cc: Dr. Santoro. [facility] # [id number]
[2017-01-12] MEDS: Lactated Ringer's 1,000 ML IV SCH ×10 (00:09→22:28)
[2017-01-12] MEDS: metroNIDAZOLE 500mg/100ml NS 100 ML IVPB SCH ×3 (00:10→17:45)
[2017-01-12] MEDS ORDERED: DiphenhydrAMINE 50 mg/ml Inj IVP STA (01:38)
[2017-01-12 07:31] LABS: HEMOGLOBIN 14.5 g/dL (12.0-16.0); LYMPH # 0.7 K/uL (1.0-4.3); LYMPH % 5.7 % (20.0-40.0); MEAN CELL VOLUME 97.7 fl (81.0-99.0); MEAN CORPUSCULAR HEMOGLOBIN 32.9 pg (27.0-31.0); MEAN CORPUSCULAR HGB CONC 33.7 g/dL (33.0-37.0); MEAN PLATELET VOLUME 7.6 fl (7.2-11.7); MONO # 0.7 K/uL (0.0-0.8); MONO % 5.4 % (0.0-10.0); NEUT # 11.5 K/uL (1.8-7.0); NEUT % 88.9 % (50.0-75.0); PLATELET COUNT 291 K/uL (130-400); RBC 4.41 Mil/uL (3.80-5.20); RED CELL DISTRIBUTION WIDTH 12.7 % (11.5-14.5); WHITE BLOOD COUNT 12.9 K/uL (4.8-10.8)
[2017-01-12 07:37] LABS: ALB/GLOB RATIO 1.2 (1.0-2.1); ALBUMIN 3.5 g/dL (3.5-5.0); ALT/SGPT 44 U/L (9-52); AMYLASE 497 U/L (30-110); AST/SGOT 53 U/L (14-36); BLOOD UREA NITROGEN 5 mg/dl (7-17); CALCIUM 9.3 mg/dL (8.4-10.2); GFR AFRICAN-AMERICAN > 60; GFR NON-AFRICAN AMERICAN > 60
--- NOTE | 2017-01-12 07:49 | CP.PCM.PN ---
Subjective - Date & Time of Evaluation Date of Evaluation: 01/12/17 Time of Evaluation: 07:49 - Subjective Subjective: pt stilll w/ gas/bloating sensation. has had relief of pain w/ incr of dilaudid. no f/c. had n/v/d yesterday. am labs pending but amylase is elevating surgical and gi consults appriciated Objective - Vital Signs/Intake and Output Vital Signs (last 24 hours): Temp Pulse Resp BP Pulse Ox 98.1 F 122 H 18 154/105 H 95 01/12/17 04:58 01/12/17 04:58 01/12/17 04:58 01/12/17 04:58 01/12/17 04:58 - Medications Medications: Current Medications Famotidine (Pepcid) 20 mg IVP Q12 [facility] Last Admin: 01/11/17 20:23 Dose: 20 mg Hydromorphone HCl (Dilaudid) 2 mg IVP Q4H PRN PRN Reason: Pain, severe (8-10) Last Admin: 01/12/17 04:02 Dose: 2 mg Lactated Ringer's (Lactated Ringer's) 1,000 mls @ 250 mls/hr IV .Q4H [facility] Last Admin: 01/12/17 06:43 Dose: Not Given Ciprofloxacin (Cipro 200mg/100ml D5w) 100 mls @ 100 mls/hr IVPB Q12 [facility] Last Admin: 01/11/17 20:25 Dose: 100 mls/hr Metronidazole (Flagyl 500mg/100ml Ns) 100 mls @ 100 mls/hr IVPB Q8 [facility] Last Admin: 01/12/17 00:10 Dose: 100 mls/hr Lisinopril (Zestril) 10 mg PO DAILY [facility] Last Admin: 01/11/17 09:50 Dose: 10 mg Metoclopramide HCl (Reglan) 10 mg IVP Q6 PRN PRN Reason: Nausea/Vomiting Last Admin: 01/12/17 04:03 Dose: 10 mg Ondansetron HCl (Zofran Inj) 4 mg IVP Q6 PRN PRN Reason: Nausea/Vomiting Last Admin: 01/12/17 00:08 Dose: 4 mg Simethicone (Mylicon Chew Tab) 80 mg PO TID PRN PRN Reason: Flatulence Last Admin: 01/11/17 20:28 Dose: 80 mg - Labs Labs: 01/12/17 06:00 - Constitutional Appears: Well, Non-toxic, No Acute Distress - Head Exam Head Exam: ATRAUMATIC, NORMAL INSPECTION, NORMOCEPHALIC - Eye Exam Eye Exam: EOMI, Normal appearance, PERRL Pupil Exam: NORMAL ACCOMODATION, PERRL - ENT Exam ENT Exam: Mucous Membranes Moist, Normal Exam - Neck Exam Neck Exam: Full ROM, Normal Inspection. absent: Lymphadenopathy - Respiratory Exam Respiratory Exam: Clear to Ausculation Bilateral, NORMAL BREATHING PATTERN - Cardiovascular Exam Cardiovascular Exam: REGULAR RHYTHM, RRR, +S1, +S2. absent: Murmur - GI/Abdominal Exam GI & Abdominal Exam: Soft, Tenderness, Normal Bowel Sounds - Extremities Exam Extremities Exam: Full ROM, Normal Capillary Refill, Normal Inspection. absent : Joint Swelling, Pedal Edema - Back Exam Back Exam: NORMAL INSPECTION - Neurological Exam Neurological Exam: Alert, Awake, CN II-XII Intact, Normal Gait, Oriented x3 - Psychiatric Exam Psychiatric exam: Normal Affect, Normal Mood - Skin Skin Exam: Dry, Intact, Normal Color, Warm Assessment and Plan (1) DVT prophylaxis Status: Acute (2) Colitis Status: Acute (3) Pancreatitis Status: Acute - Assessment and Plan (Free Text) Assessment: (1) DVT prophylaxis Assessment and Plan: scd nad aehose ambulation Status: Acute (2) Colitis Assessment and Plan: cipro/flagyl pain control gi npo ivf Status: Acute (3) Pancreatitis Assessment and Plan: pain control gi npo ivf abd us ct noted Status: Acute
[2017-01-12 08:33] LABS: LIPASE 4888 U/L (23-300)
[2017-01-12] MEDS: Simethicone 80 mg Chewtab PO PRN ×3 (08:49→23:12)
[2017-01-12 11:17] LABS: BASOPHIL 1 % (0-2); LYMPHOCYTE 7 % (20-50); MONOCYTE 4 % (0-10); NEUTROPHIL 87 % (42-75); PLATELET ESTIMATE NORMAL (NORMAL); REACTIVE LYMPHOCYTES 1 % (0-0); TOTAL CELLS COUNTED 100
[2017-01-12] MEDS: Ciprofloxacin 200mg/100ml D5W 100 ML IVPB SCH ×2 (11:21→22:18)
[2017-01-12] MEDS ORDERED: Lactated Ringer's 1,000 ML IV SCH ×2 (13:00)
--- NOTE | 2017-01-12 13:30 | CP.PCM.PN ---
<Everton Walker - Last Filed: 01/12/17 15:07> Subjective - Date & Time of Evaluation Date of Evaluation: 01/12/17 Time of Evaluation: 11:08 - Subjective Subjective: Surgery Progress note. Dr. Peralta Pt seen and examined at bedside. Pain improving compared to yesterday. Does c/o one episode of vomiting this morning. No F/C. No new complaints Objective - Vital Signs/Intake and Output Vital Signs (last 24 hours): Temp Pulse Resp BP Pulse Ox 98.5 F 107 H 20 154/105 H 96 01/12/17 12:00 01/12/17 12:48 01/12/17 12:00 01/12/17 12:48 01/12/17 12:00 - Medications Medications: Current Medications Famotidine (Pepcid) 20 mg IVP Q12 [facility] Last Admin: 01/12/17 11:22 Dose: 20 mg Hydromorphone HCl (Dilaudid) 2 mg IVP Q4H PRN PRN Reason: Pain, severe (8-10) Last Admin: 01/12/17 12:44 Dose: 2 mg Ciprofloxacin (Cipro 200mg/100ml D5w) 100 mls @ 100 mls/hr IVPB Q12 [facility] Last Admin: 01/12/17 11:21 Dose: 100 mls/hr Metronidazole (Flagyl 500mg/100ml Ns) 100 mls @ 100 mls/hr IVPB Q8 [facility] Last Admin: 01/12/17 08:46 Dose: 100 mls/hr Lactated Ringer's (Lactated Ringer's) 1,000 mls @ 300 mls/hr IV .Q3H20M [facility] Stop: 01/13/17 12:49 Lactated Ringer's (Lactated Ringer's) 1,000 mls @ 999 mls/hr IV .Q1H1M [facility] Stop: 01/13/17 13:01 Lisinopril (Zestril) 10 mg PO DAILY [facility] Last Admin: 01/12/17 08:47 Dose: 10 mg Lisinopril (Zestril) 20 mg PO DAILY [facility] Last Admin: 01/12/17 12:48 Dose: 20 mg Metoclopramide HCl (Reglan) 10 mg IVP Q6 PRN PRN Reason: Nausea/Vomiting Last Admin: 01/12/17 04:03 Dose: 10 mg Ondansetron HCl (Zofran Inj) 4 mg IVP Q6 PRN PRN Reason: Nausea/Vomiting Last Admin: 01/12/17 08:48 Dose: 4 mg Simethicone (Mylicon Chew Tab) 80 mg PO TID PRN PRN Reason: Flatulence Last Admin: 01/12/17 08:49 Dose: 80 mg - Labs Labs: 01/12/17 06:00 01/12/17 06:00 - Constitutional Appears: Well, No Acute Distress - Head Exam Head Exam: ATRAUMATIC, NORMAL INSPECTION, NORMOCEPHALIC - Eye Exam Eye Exam: EOMI - ENT Exam ENT Exam: Mucous Membranes Moist - GI/Abdominal Exam GI & Abdominal Exam: Soft Additional comments: epigastric tenderness to palpation. No rebound tenderness. No guarding - Extremities Exam Extremities Exam: Normal Inspection. absent: Calf Tenderness - Back Exam Back Exam: NORMAL INSPECTION - Neurological Exam Neurological Exam: Alert, Awake, Normal Gait, Oriented x3 - Psychiatric Exam Psychiatric exam: Normal Affect, Normal Mood - Skin Skin Exam: Dry, Intact, Normal Color, Warm Assessment and Plan - Assessment and Plan (Free Text) Assessment: 41yo F with Alcoholic Pancreatitis - Maintain NPO - Continue aggressive IVF - Zofran prn - continue management as per GI - No plans for any acute surgical intervention - Surgery will sign-off. Please re-consult as necessary Further recs as per Dr. Kathryn Walker PGY1 <Bertram Peralta - Last Filed: 01/12/17 17:52> Subjective - Date & Time of Evaluation Time of Evaluation: 16:15 - Subjective Subjective: Patient was seen and examined at the bedside. Agree with resident's note above Objective - Vital Signs/Intake and Output Vital Signs (last 24 hours): Temp Pulse Resp BP Pulse Ox 98.6 F 106 H 20 155/102 H 96 01/12/17 15:42 01/12/17 15:42 01/12/17 15:42 01/12/17 15:42 01/12/17 15:42 - Medications Medications: Current Medications Famotidine (Pepcid) 20 mg IVP Q12 [facility] Last Admin: 01/12/17 11:22 Dose: 20 mg Hydromorphone HCl (Dilaudid) 2 mg IVP Q3 PRN PRN Reason: Pain, severe (8-10) Ciprofloxacin (Cipro 200mg/100ml D5w) 100 mls @ 100 mls/hr IVPB Q12 [facility] Last Admin: 01/12/17 11:21 Dose: 100 mls/hr Metronidazole (Flagyl 500mg/100ml Ns) 100 mls @ 100 mls/hr IVPB Q8 [facility] Last Admin: 01/12/17 08:46 Dose: 100 mls/hr Lactated Ringer's (Lactated Ringer's) 1,000 mls @ 300 mls/hr IV .Q3H20M [facility] Stop: 01/13/17 12:49 Last Admin: 01/12/17 16:28 Dose: 300 mls/hr Lactated Ringer's (Lactated Ringer's) 1,000 mls @ 999 mls/hr IV .Q1H1M [facility] Stop: 01/13/17 13:01 Last Admin: 01/12/17 16:30 Dose: 999 mls/hr Ketorolac Tromethamine (Toradol) 30 mg IVP Q6 [facility] Stop: 01/13/17 16:00 Last Admin: 01/12/17 16:23 Dose: 30 mg Lisinopril (Zestril) 10 mg PO DAILY [facility] Last Admin: 01/12/17 08:47 Dose: 10 mg Lisinopril (Zestril) 20 mg PO DAILY [facility] Last Admin: 01/12/17 12:48 Dose: 20 mg Metoclopramide HCl (Reglan) 10 mg IVP Q6 PRN PRN Reason: Nausea/Vomiting Last Admin: 01/12/17 04:03 Dose: 10 mg Ondansetron HCl (Zofran Inj) 4 mg IVP Q6 PRN PRN Reason: Nausea/Vomiting Last Admin: 01/12/17 08:48 Dose: 4 mg Simethicone (Mylicon Chew Tab) 80 mg PO TID PRN PRN Reason: Flatulence Last Admin: 01/12/17 08:49 Dose: 80 mg - Labs Labs: 01/12/17 06:00 01/12/17 06:00
[2017-01-13] MEDS: Lactated Ringer's 1,000 ML IV SCH ×4 (00:03→12:59)
[2017-01-13] MEDS: metroNIDAZOLE 500mg/100ml NS 100 ML IVPB SCH ×3 (00:30→16:02)
[2017-01-13 07:10] LABS: HEMOGLOBIN 10.2 g/dL (12.0-16.0); MEAN CELL VOLUME 97.9 fl (81.0-99.0); MEAN CORPUSCULAR HEMOGLOBIN 34.1 pg (27.0-31.0); MEAN CORPUSCULAR HGB CONC 34.9 g/dL (33.0-37.0); RBC 2.98 Mil/uL (3.80-5.20); RED CELL DISTRIBUTION WIDTH 12.6 % (11.5-14.5); WHITE BLOOD COUNT 8.9 K/uL (4.8-10.8)
[2017-01-13 07:18] LABS: ALB/GLOB RATIO 1.1 (1.0-2.1); ALBUMIN 2.7 g/dL (3.5-5.0); ALT/SGPT 39 U/L (9-52); AMYLASE 299 U/L (30-110); AST/SGOT 35 U/L (14-36); BLOOD UREA NITROGEN 4 mg/dl (7-17); CALCIUM 8.4 mg/dL (8.4-10.2); GFR AFRICAN-AMERICAN > 60; GFR NON-AFRICAN AMERICAN > 60; LIPASE 1843 U/L (23-300)
[2017-01-13] MEDS: Ciprofloxacin 200mg/100ml D5W 100 ML IVPB SCH ×2 (09:16→20:37)
[2017-01-13] MEDS: Simethicone 80 mg Chewtab PO PRN (09:18)
--- NOTE | 2017-01-13 11:43 | CP.PCM.PN ---
Subjective - Date & Time of Evaluation Date of Evaluation: 01/13/17 Time of Evaluation: 11:43 - Subjective Subjective: pts pain is better today. no f/c, n/v/d. bw noted. amylase/lipase trending down. still w/ epigastric tenderness. starting to have appittie Objective - Vital Signs/Intake and Output Vital Signs (last 24 hours): Temp Pulse Resp BP Pulse Ox 98.9 F 106 H 18 155/101 H 95 01/13/17 08:00 01/13/17 09:21 01/13/17 08:00 01/13/17 09:21 01/13/17 08:00 Intake and Output: 01/13/17 01/13/17 06:59 18:59 Intake Total 6300 Balance 6300 - Medications Medications: Current Medications Famotidine (Pepcid) 20 mg IVP Q12 [facility] Last Admin: 01/13/17 09:20 Dose: 20 mg Hydromorphone HCl (Dilaudid) 2 mg IVP Q3 PRN PRN Reason: Pain, severe (8-10) Last Admin: 01/13/17 09:29 Dose: 2 mg Ciprofloxacin (Cipro 200mg/100ml D5w) 100 mls @ 100 mls/hr IVPB Q12 [facility] Last Admin: 01/13/17 09:16 Dose: 100 mls/hr Metronidazole (Flagyl 500mg/100ml Ns) 100 mls @ 100 mls/hr IVPB Q8 [facility] Last Admin: 01/13/17 09:16 Dose: 100 mls/hr Lactated Ringer's (Lactated Ringer's) 1,000 mls @ 300 mls/hr IV .Q3H20M [facility] Stop: 01/13/17 12:49 Last Admin: 01/13/17 09:17 Dose: 300 mls/hr Lactated Ringer's (Lactated Ringer's) 1,000 mls @ 999 mls/hr IV .Q1H1M [facility] Stop: 01/13/17 13:01 Last Admin: 01/12/17 19:00 Dose: 999 mls/hr Ketorolac Tromethamine (Toradol) 30 mg IVP Q6 [facility] Stop: 01/13/17 16:00 Last Admin: 01/13/17 04:09 Dose: 30 mg Lisinopril (Zestril) 10 mg PO DAILY [facility] Last Admin: 01/13/17 09:21 Dose: 10 mg Lisinopril (Zestril) 20 mg PO DAILY [facility] Last Admin: 01/13/17 09:18 Dose: 20 mg Metoclopramide HCl (Reglan) 10 mg IVP Q6 PRN PRN Reason: Nausea/Vomiting Last Admin: 01/12/17 04:03 Dose: 10 mg Ondansetron HCl (Zofran Inj) 4 mg IVP Q6 PRN PRN Reason: Nausea/Vomiting Last Admin: 01/12/17 08:48 Dose: 4 mg Simethicone (Mylicon Chew Tab) 80 mg PO TID PRN PRN Reason: Flatulence Last Admin: 01/13/17 09:18 Dose: 80 mg - Labs Labs: 01/13/17 05:05 01/13/17 05:05 - Constitutional Appears: Well, Non-toxic, No Acute Distress - Head Exam Head Exam: ATRAUMATIC, NORMAL INSPECTION, NORMOCEPHALIC - Eye Exam Eye Exam: EOMI, Normal appearance, PERRL Pupil Exam: NORMAL ACCOMODATION, PERRL - ENT Exam ENT Exam: Mucous Membranes Moist, Normal Exam - Neck Exam Neck Exam: Full ROM, Normal Inspection. absent: Lymphadenopathy - Respiratory Exam Respiratory Exam: Clear to Ausculation Bilateral, NORMAL BREATHING PATTERN - Cardiovascular Exam Cardiovascular Exam: REGULAR RHYTHM, RRR, +S1, +S2. absent: Murmur - GI/Abdominal Exam GI & Abdominal Exam: Soft, Tenderness, Normal Bowel Sounds - Extremities Exam Extremities Exam: Full ROM, Normal Capillary Refill, Normal Inspection. absent : Joint Swelling, Pedal Edema - Back Exam Back Exam: NORMAL INSPECTION - Neurological Exam Neurological Exam: Alert, Awake, CN II-XII Intact, Normal Gait, Oriented x3 - Psychiatric Exam Psychiatric exam: Normal Affect, Normal Mood - Skin Skin Exam: Dry, Intact, Normal Color, Warm Assessment and Plan (1) DVT prophylaxis Status: Acute (2) Colitis Status: Acute (3) Pancreatitis Status: Acute - Assessment and Plan (Free Text) Assessment: (1) DVT prophylaxis Assessment and Plan: scd nad aehose ambulation Status: Acute (2) Colitis Assessment and Plan: cipro/flagyl pain control gi ivf Status: Acute (3) Pancreatitis Assessment and Plan: pain control gi adv diet as per gi and pt condition ivf abd us ct noted Status: Acute
--- NOTE | 2017-01-13 12:23 | CP.PCM.PN ---
Subjective - Date & Time of Evaluation Date of Evaluation: 01/12/17 Time of Evaluation: 11:00 - Subjective Subjective: still with pain Objective - Vital Signs/Intake and Output Vital Signs (last 24 hours): Temp Pulse Resp BP Pulse Ox 98.6 F 106 H 18 128/80 93 L 01/13/17 12:00 01/13/17 12:00 01/13/17 12:00 01/13/17 12:00 01/13/17 12:00 Intake and Output: 01/13/17 01/13/17 06:59 18:59 Intake Total 6300 Balance 6300 - Medications Medications: Current Medications Famotidine (Pepcid) 20 mg IVP Q12 [facility] Last Admin: 01/13/17 09:20 Dose: 20 mg Hydromorphone HCl (Dilaudid) 2 mg IVP Q3 PRN PRN Reason: Pain, severe (8-10) Last Admin: 01/13/17 09:29 Dose: 2 mg Ciprofloxacin (Cipro 200mg/100ml D5w) 100 mls @ 100 mls/hr IVPB Q12 [facility] Last Admin: 01/13/17 09:16 Dose: 100 mls/hr Metronidazole (Flagyl 500mg/100ml Ns) 100 mls @ 100 mls/hr IVPB Q8 [facility] Last Admin: 01/13/17 09:16 Dose: 100 mls/hr Lactated Ringer's (Lactated Ringer's) 1,000 mls @ 300 mls/hr IV .Q3H20M [facility] Stop: 01/13/17 12:49 Last Admin: 01/13/17 09:17 Dose: 300 mls/hr Lactated Ringer's (Lactated Ringer's) 1,000 mls @ 999 mls/hr IV .Q1H1M [facility] Stop: 01/13/17 13:01 Last Admin: 01/12/17 19:00 Dose: 999 mls/hr Ketorolac Tromethamine (Toradol) 30 mg IVP Q6 [facility] Stop: 01/13/17 16:00 Last Admin: 01/13/17 04:09 Dose: 30 mg Lisinopril (Zestril) 20 mg PO DAILY [facility] Last Admin: 01/13/17 09:18 Dose: 20 mg Metoclopramide HCl (Reglan) 10 mg IVP Q6 PRN PRN Reason: Nausea/Vomiting Last Admin: 01/12/17 04:03 Dose: 10 mg Ondansetron HCl (Zofran Inj) 4 mg IVP Q6 PRN PRN Reason: Nausea/Vomiting Last Admin: 01/12/17 08:48 Dose: 4 mg Simethicone (Mylicon Chew Tab) 80 mg PO TID PRN PRN Reason: Flatulence Last Admin: 01/13/17 09:18 Dose: 80 mg - Labs Labs: 01/13/17 05:05 01/13/17 05:05 - GI/Abdominal Exam GI & Abdominal Exam: Soft, Tenderness, Normal Bowel Sounds Assessment and Plan - Assessment and Plan (Free Text) Assessment: 41 yo female with pancreatitis pain control increase ivf zofran MRI pancrease/MRCP to r/o divisum if not improving
--- NOTE | 2017-01-13 12:45 | CP.PCM.PN ---
Subjective - Date & Time of Evaluation Date of Evaluation: 01/13/17 Time of Evaluation: 12:30 - Subjective Subjective: feels better Objective - Vital Signs/Intake and Output Vital Signs (last 24 hours): Temp Pulse Resp BP Pulse Ox 98.6 F 106 H 18 128/80 93 L 01/13/17 12:00 01/13/17 12:00 01/13/17 12:00 01/13/17 12:00 01/13/17 12:00 Intake and Output: 01/13/17 01/13/17 06:59 18:59 Intake Total 6300 Balance 6300 - Medications Medications: Current Medications Famotidine (Pepcid) 20 mg IVP Q12 [facility] Last Admin: 01/13/17 09:20 Dose: 20 mg Hydromorphone HCl (Dilaudid) 2 mg IVP Q3 PRN PRN Reason: Pain, severe (8-10) Last Admin: 01/13/17 09:29 Dose: 2 mg Ciprofloxacin (Cipro 200mg/100ml D5w) 100 mls @ 100 mls/hr IVPB Q12 [facility] Last Admin: 01/13/17 09:16 Dose: 100 mls/hr Metronidazole (Flagyl 500mg/100ml Ns) 100 mls @ 100 mls/hr IVPB Q8 [facility] Last Admin: 01/13/17 09:16 Dose: 100 mls/hr Lactated Ringer's (Lactated Ringer's) 1,000 mls @ 300 mls/hr IV .Q3H20M [facility] Stop: 01/13/17 12:49 Last Admin: 01/13/17 09:17 Dose: 300 mls/hr Lactated Ringer's (Lactated Ringer's) 1,000 mls @ 999 mls/hr IV .Q1H1M [facility] Stop: 01/13/17 13:01 Last Admin: 01/12/17 19:00 Dose: 999 mls/hr Ketorolac Tromethamine (Toradol) 30 mg IVP Q6 [facility] Stop: 01/13/17 16:00 Last Admin: 01/13/17 04:09 Dose: 30 mg Lisinopril (Zestril) 20 mg PO DAILY [facility] Last Admin: 01/13/17 09:18 Dose: 20 mg Metoclopramide HCl (Reglan) 10 mg IVP Q6 PRN PRN Reason: Nausea/Vomiting Last Admin: 01/12/17 04:03 Dose: 10 mg Ondansetron HCl (Zofran Inj) 4 mg IVP Q6 PRN PRN Reason: Nausea/Vomiting Last Admin: 01/12/17 08:48 Dose: 4 mg Simethicone (Mylicon Chew Tab) 80 mg PO TID PRN PRN Reason: Flatulence Last Admin: 01/13/17 09:18 Dose: 80 mg - Labs Labs: 01/13/17 05:05 01/13/17 05:05 - GI/Abdominal Exam GI & Abdominal Exam: Soft, Normal Bowel Sounds Assessment and Plan - Assessment and Plan (Free Text) Assessment: 41 yo with pancreatitis doing well advanced diet as tolerated
[2017-01-14 00:14] VITALS: RESP 18
[2017-01-14] MEDS: metroNIDAZOLE 500mg/100ml NS 100 ML IVPB SCH ×2 (00:24→08:46)
[2017-01-14] MEDS: Simethicone 80 mg Chewtab PO PRN ×2 (00:24→08:46)
[2017-01-14] MEDS: Ciprofloxacin 200mg/100ml D5W 100 ML IVPB SCH (08:46)
[2017-01-14 10:23] LABS: BASO % 0.2 % (0.0-2.0); EOS # 0.1 K/uL (0.0-0.7); EOS % 1.1 % (0.0-4.0); HEMOGLOBIN 10.5 g/dL (12.0-16.0); LYMPH # 0.7 K/uL (1.0-4.3); LYMPH % 6.6 % (20.0-40.0); MEAN CELL VOLUME 97.5 fl (81.0-99.0); MEAN CORPUSCULAR HEMOGLOBIN 33.6 pg (27.0-31.0); MEAN CORPUSCULAR HGB CONC 34.4 g/dL (33.0-37.0); MEAN PLATELET VOLUME 7.5 fl (7.2-11.7); MONO # 0.7 K/uL (0.0-0.8); MONO % 6.9 % (0.0-10.0); NEUT # 8.6 K/uL (1.8-7.0); NEUT % 85.2 % (50.0-75.0); RBC 3.14 Mil/uL (3.80-5.20); RED CELL DISTRIBUTION WIDTH 12.4 % (11.5-14.5); WHITE BLOOD COUNT 10.1 K/uL (4.8-10.8)
[2017-01-14 10:43] LABS: ALB/GLOB RATIO 1.1 (1.0-2.1); ALBUMIN 3.1 g/dL (3.5-5.0); ALT/SGPT 38 U/L (9-52); AMYLASE 161 U/L (30-110); AST/SGOT 33 U/L (14-36); BLOOD UREA NITROGEN 5 mg/dl (7-17); CALCIUM 8.5 mg/dL (8.4-10.2); GFR AFRICAN-AMERICAN > 60; GFR NON-AFRICAN AMERICAN > 60; LIPASE 987 U/L (23-300)
--- NOTE | 2017-01-14 11:00 | CP.PCM.PN ---
Subjective - Date & Time of Evaluation Date of Evaluation: 01/14/17 Time of Evaluation: 10:59 - Subjective Subjective: doing well, minimal pain. no f/c, n/v/d. less gas. renetta po in small amts. Objective - Vital Signs/Intake and Output Vital Signs (last 24 hours): Temp Pulse Resp BP Pulse Ox 99.2 F 92 H 18 155/90 H 96 01/14/17 08:00 01/14/17 08:45 01/14/17 08:00 01/14/17 08:45 01/14/17 08:00 - Medications Medications: Current Medications Famotidine (Pepcid) 20 mg IVP Q12 [facility] Last Admin: 01/14/17 08:44 Dose: 20 mg Hydromorphone HCl (Dilaudid) 2 mg IVP Q3 PRN PRN Reason: Pain, severe (8-10) Last Admin: 01/14/17 08:49 Dose: 2 mg Ciprofloxacin (Cipro 200mg/100ml D5w) 100 mls @ 100 mls/hr IVPB Q12 [facility] Last Admin: 01/14/17 08:46 Dose: 100 mls/hr Metronidazole (Flagyl 500mg/100ml Ns) 100 mls @ 100 mls/hr IVPB Q8 [facility] Last Admin: 01/14/17 08:46 Dose: 100 mls/hr Lisinopril (Zestril) 20 mg PO DAILY [facility] Last Admin: 01/14/17 08:45 Dose: 20 mg Metoclopramide HCl (Reglan) 10 mg IVP Q6 PRN PRN Reason: Nausea/Vomiting Last Admin: 01/12/17 04:03 Dose: 10 mg Ondansetron HCl (Zofran Inj) 4 mg IVP Q6 PRN PRN Reason: Nausea/Vomiting Last Admin: 01/12/17 08:48 Dose: 4 mg Simethicone (Mylicon Chew Tab) 80 mg PO TID PRN PRN Reason: Flatulence Last Admin: 01/14/17 08:46 Dose: 80 mg - Labs Labs: 01/14/17 09:30 01/14/17 09:30 - Constitutional Appears: Well, Non-toxic, No Acute Distress - Head Exam Head Exam: ATRAUMATIC, NORMAL INSPECTION, NORMOCEPHALIC - Eye Exam Eye Exam: EOMI, Normal appearance, PERRL Pupil Exam: NORMAL ACCOMODATION, PERRL - ENT Exam ENT Exam: Mucous Membranes Moist, Normal Exam - Neck Exam Neck Exam: Full ROM, Normal Inspection. absent: Lymphadenopathy - Respiratory Exam Respiratory Exam: Clear to Ausculation Bilateral, NORMAL BREATHING PATTERN - Cardiovascular Exam Cardiovascular Exam: REGULAR RHYTHM, RRR, +S1, +S2. absent: Murmur - GI/Abdominal Exam GI & Abdominal Exam: Soft, Normal Bowel Sounds. absent: Tenderness - Extremities Exam Extremities Exam: Full ROM, Normal Capillary Refill, Normal Inspection. absent : Joint Swelling, Pedal Edema - Back Exam Back Exam: NORMAL INSPECTION - Neurological Exam Neurological Exam: Alert, Awake, CN II-XII Intact, Normal Gait, Oriented x3 - Psychiatric Exam Psychiatric exam: Normal Affect, Normal Mood - Skin Skin Exam: Dry, Intact, Normal Color, Warm Assessment and Plan (1) DVT prophylaxis Status: Acute (2) Colitis Status: Acute (3) Pancreatitis Status: Acute - Assessment and Plan (Free Text) Assessment: (1) DVT prophylaxis Assessment and Plan: scd nad aehose ambulation Status: Acute (2) Colitis Assessment and Plan: cipro/flagyl pain control gi ivf Status: Acute (3) Pancreatitis Assessment and Plan: pain control gi adv diet as per gi and pt condition ivf abd us ct noted Status: Acute ?? dc today if cleared by gi
[2017-01-14 12:18] VITALS: BP 145/74; PULSE 96; TEMP 98.3; O2SAT 95
--- NOTE | 2017-01-16 08:10 | CP.PCM.DIS ---
Provider - Provider Date of Admission: 01/11/17 14:33 Attending physician: Darryn Oneill MD Time Spent in preparation of Discharge (in minutes): 15 Diagnosis - Discharge Diagnosis (1) DVT prophylaxis Status: Acute (2) Colitis Status: Acute (3) Pancreatitis Status: Acute Hospital Course - Lab Results Lab Results: Most Recent Lab Values WBC 10.1 K/uL (4.8-10.8) 01/14/17 09:30 RBC 3.14 Mil/uL (3.80-5.20) L 01/14/17 09:30 Hgb 10.5 g/dL (12.0-16.0) L 01/14/17 09:30 Hct 30.6 % (34.0-47.0) L 01/14/17 09:30 MCV 97.5 fl (81.0-99.0) 01/14/17 09:30 MCH 33.6 pg (27.0-31.0) H 01/14/17 09:30 MCHC 34.4 g/dL (33.0-37.0) 01/14/17 09:30 RDW 12.4 % (11.5-14.5) 01/14/17 09:30 Plt Count 207 K/uL (130-400) 01/14/17 09:30 MPV 7.5 fl (7.2-11.7) 01/14/17 09:30 Neut % (Auto) 85.2 % (50.0-75.0) H 01/14/17 09:30 Lymph % (Auto) 6.6 % (20.0-40.0) L 01/14/17 09:30 Ogle % (Auto) 6.9 % (0.0-10.0) 01/14/17 09:30 Eos % (Auto) 1.1 % (0.0-4.0) 01/14/17 09:30 Baso % (Auto) 0.2 % (0.0-2.0) 01/14/17 09:30 Neut # 8.6 K/uL (1.8-7.0) H 01/14/17 09:30 Lymph # 0.7 K/uL (1.0-4.3) L 01/14/17 09:30 Ogle # 0.7 K/uL (0.0-0.8) 01/14/17 09:30 Eos # 0.1 K/uL (0.0-0.7) 01/14/17 09:30 Baso # 0.0 K/uL (0.0-0.2) 01/14/17 09:30 Neutrophils % (Manual) 87 % (42-75) H 01/12/17 06:00 Lymphocytes % (Manual) 7 % (20-50) L 01/12/17 06:00 Reactive Lymphs % 1 % (0-0) H 01/12/17 06:00 Monocytes % (Manual) 4 % (0-10) 01/12/17 06:00 Basophils % (Manual) 1 % (0-2) 01/12/17 06:00 Platelet Estimate Normal (NORMAL) 01/12/17 06:00 RBC Morphology Normal (NORMAL) 01/12/17 06:00 Sodium 137 mmol/l (132-148) 01/14/17 09:30 Potassium 3.1 MMOL/L (3.6-5.0) L 01/14/17 09:30 Chloride 101 mmol/L (98-107) 01/14/17 09:30 Carbon Dioxide 27 mmol/L (22-30) 01/14/17 09:30 Anion Gap 12 (10-20) 01/14/17 09:30 BUN 5 mg/dl (7-17) L 01/14/17 09:30 Creatinine 0.7 mg/dL (0.7-1.2) 01/14/17 09:30 Est GFR ( Amer) > 60 01/14/17 09:30 Est GFR (Non-Af Amer) > 60 01/14/17 09:30 Random Glucose 120 mg/dL (65-105) H 01/14/17 09:30 Calcium 8.5 mg/dL (8.4-10.2) 01/14/17 09:30 Total Bilirubin 0.6 mg/dl (0.2-1.3) 01/14/17 09:30 AST 33 U/L (14-36) 01/14/17 09:30 ALT 38 U/L (9-52) 01/14/17 09:30 Alkaline Phosphatase 66 U/L (38-126) 01/14/17 09:30 Total Protein 5.9 G/DL (6.3-8.2) L 01/14/17 09:30 Albumin 3.1 g/dL (3.5-5.0) L 01/14/17 09:30 Globulin 2.8 gm/dL (2.2-3.9) 01/14/17 09:30 Albumin/Globulin Ratio 1.1 (1.0-2.1) 01/14/17 09:30 Amylase 161 U/L (30-110) H D 01/14/17 09:30 Lipase 987 U/L (23-300) H 01/14/17 09:30 Urine Opiates Screen Negative (NEGATIVE) 01/10/17 20:00 Urine Methadone Screen Negative (NEGATIVE) 01/10/17 20:00 Ur Barbiturates Screen Negative (NEGATIVE) 01/10/17 20:00 Ur Phencyclidine Scrn Negative (NEGATIVE) 01/10/17 20:00 Ur Amphetamines Screen Negative (NEGATIVE) 01/10/17 20:00 U Benzodiazepines Scrn Negative (NEGATIVE) 01/10/17 20:00 U Oth Cocaine Metabols Negative (NEGATIVE) 01/10/17 20:00 U Cannabinoids Screen Negative (NEGATIVE) 01/10/17 20:00 Alcohol, Quantitative < 10 mg/dl (0-10) 01/10/17 19:55 Discharge Exam - Head Exam Head Exam: ATRAUMATIC, NORMAL INSPECTION, NORMOCEPHALIC Discharge Plan - Discharge Medications Prescriptions: Ciprofloxacin HCl [Cipro] 500 mg PO BID #14 tablet Metronidazole [Flagyl] 500 mg PO Q8H #21 tablet oxyCODONE/Acetaminophen [Percocet 5/325 mg Tab] 1 tab PO Q4H PRN #10 tab PRN Reason: Pain, Moderate (4-7) Simethicone [Mylicon Chew Tab] 80 mg PO TID PRN #20 tab PRN Reason: Flatulence - Follow Up Plan Condition: FAIR Disposition: HOME/ ROUTINE Additional Instructions: cleard by mir jackson po. no pain. nof /c, n/v/d final dx-colitis, pancreatitis
== END 2017-01-14 19:05 | disposition home or self-care (01) | DRG 204 ==
LOC: H.ER 17:57 → H.ERHOLD 01-11 00:21 → H.TEL 01-11 03:05 → OBSVTOIN 01-11 14:33
PROVIDERS: ADMIT Family Medicine; ATTEND Family Medicine
DX: K85.20 Alcohol induced acute pancreatitis without necrosis or infection (principal); K76.0 Fatty (change of) liver, not elsewhere classified; I10 Essential (primary) hypertension; K52.9 Noninfective gastroenteritis and colitis, unspecified; E11.9 Type 2 diabetes mellitus without complications; K21.9 Gastro-esophageal reflux disease without esophagitis; F10.21 Alcohol dependence, in remission; E78.00 Pure hypercholesterolemia, unspecified; Z87.891 Personal history of nicotine dependence; Z98.84 Bariatric surgery status

== ENCOUNTER 2017-02-24 19:29 | Emergency (ER) | payer MEDICAID ==
[2017-02-24 19:29] VITALS: BMI 31.2
[2017-02-24 19:43] VITALS: RESP 16; TEMP 98.5; O2SAT 100
[2017-02-24] MEDS ORDERED: Sodium Chloride 0.9% 1,000 ML IV STA (20:06)
--- NOTE | 2017-02-24 20:26 | ED PDOC ---
HPI: Abdomen Time Seen by Provider: 02/24/17 20:01 Chief Complaint (Nursing): Abdominal Pain Chief Complaint (Provider): Diarrhea and abdominal pain History Per: Patient History/Exam Limitations: no limitations Onset/Duration Of Symptoms: Days (1) Additional Complaint(s): Patient is a 41 y/o female with a past medical history of pancreatitis presenting to the emergency department for ten episodes of watery, non-bloody diarrhea and diffuse abdominal pain that "comes in waves" since this morning with associated vomiting (phlegm only) and nausea. Reports eating a sausage, onion, and cheese-melted sandwich last night. Also notes that the abdominal pain is accompanied by an urge to have a bowel movement, and reports that it is different from pain associated with pancreatitis because it is not epigastric in nature. Denies fever, recent travel, and other complaints. PCP: Dr. Sheng Acosta Past Medical History Reviewed: Historical Data, Nursing Documentation, Vital Signs Vital Signs: Last Vital Signs Temp 98.5 F 02/24/17 19:38 Pulse 87 02/24/17 21:50 Resp 16 02/24/17 19:38 BP 143/87 02/24/17 22:09 Pulse Ox 100 02/24/17 22:02 - Medical History PMH: Diabetes (resolved after bariatic surgery), Gastritis, HTN, Hypercholesterolemia (resolved after bariatric surgery), Pancreatitis Denies: CAD, CVA, HIV, Chronic Kidney Disease, Sleep Apnea - Surgical History Surgical History: - Family History Family History: States: [place], CAD, Diabetes, Hypertension Denies: Stroke - Social History Current smoker - smoking cessation education provided: No Ex-Smoker (has not smoked in the last 12 months): Yes Alcohol: None Drugs: Denies - Immunization History Hx Tetanus Toxoid Vaccination: No Hx Influenza Vaccination: No Hx Pneumococcal Vaccination: Yes (prior to sx) - Home Medications Home Medications: Ambulatory Orders Medication Instructions Recorded Dexlansoprazole [Dexilant] 60 mg PO DAILY 01/11/17 Lisinopril [Zestril] 10 mg PO DAILY 01/11/17 Ciprofloxacin HCl [Cipro] 500 mg PO BID #14 tablet 01/14/17 Metronidazole [Flagyl] 500 mg PO Q8H #21 tablet 01/14/17 Simethicone [Mylicon Chew Tab] 80 mg PO TID PRN #20 tab 01/14/17 oxyCODONE/Acetaminophen [Percocet 1 tab PO Q4H PRN #10 tab 01/14/17 5/325 mg Tab] Dicyclomine [Bentyl] 10 mg PO QID #30 cap 02/24/17 Loperamide [Imodium] 2 mg PO PRN PRN #10 cap 02/24/17 Ondansetron [Zofran] 4 mg PO Q8H #12 tab 02/24/17 - Allergies Allergies/Adverse Reactions: Allergies Allergy/AdvReac Type Severity Reaction Status Date / Time No Known Allergies Allergy Verified 02/24/17 19:38 Review of Systems ROS Statement: Except As Marked, All Systems Reviewed And Found Negative Constitutional: Negative for: Fever Gastrointestinal: Positive for: Nausea, Vomiting (only phlegm produced), Abdominal Pain (diffuse, non-epigastric), Diarrhea (watery, non-bloody) Physical Exam - Reviewed Nursing Documentation Reviewed: Yes Vital Signs Reviewed: Yes - Physical Exam Appears: Positive for: Well, Non-toxic, No Acute Distress Head Exam: Positive for: ATRAUMATIC, NORMAL INSPECTION, NORMOCEPHALIC Skin: Positive for: Normal Color, Warm, Dry Eye Exam: Positive for: Normal appearance Neck: Positive for: Normal, Painless ROM, Supple Cardiovascular/Chest: Positive for: Regular Rate, Rhythm. Negative for: Murmur Respiratory: Positive for: Normal Breath Sounds. Negative for: Accessory Muscle Use, Respiratory Distress Gastrointestinal/Abdominal: Positive for: Soft, Tenderness (minimal diffuse tenderness to palpation, no epigastric tenderness) Extremity: Positive for: Normal ROM. Negative for: Pedal Edema Neurologic/Psych: Positive for: Alert, Oriented (x3) - Laboratory Results Result Diagrams: 02/24/17 20:23 02/24/17 20:23 - ECG O2 Sat by Pulse Oximetry: 100 (RA) Pulse Ox Interpretation: Normal Medical Decision Making Medical Decision Making: Time: 20:06 Initial impression: Gastroenteritis. Rule out pancreatitis. Initial plan: Labs Bentyl 20 mg PO Reglan 10 mg IVPB Normal Saline 1 L IV Urinalysis Reevaluation 22:01 Patient is feeling better. Symptoms have resolved. Patient agrees to follow up with her PCP shruthi. Return precautions given. Scribe Attestation: Documented by Sangeetha Hoffman, acting as a scribe for Dameon Barcenas MD. Provider Scribe Attestation: All medical record entries made by the Scribe were at my direction and personally dictated by me. I have reviewed the chart and agree that the record accurately reflects my personal performance of the history, physical exam, medical decision making, and the department course for this patient. I have also personally directed, reviewed, and agree with the discharge instructions and disposition. Disposition - Clinical Impression Clinical Impression: Gastroenteritis - Disposition Referrals: [facility] [Provider Group] Disposition: Routine/Home Disposition Time: 22:00 Condition: IMPROVED Prescriptions: Dicyclomine [Bentyl] 10 mg PO QID #30 cap Loperamide [Imodium] 2 mg PO PRN PRN #10 cap PRN Reason: Diarrhea Ondansetron [Zofran] 4 mg PO Q8H #12 tab Instructions: Gastroenteritis (ED) Forms: [facility] (Czech)
[2017-02-24 20:28] LABS: BASO # 0.1 K/uL (0.0-0.2); BASO % 0.5 % (0.0-2.0); EOS # 0.1 K/uL (0.0-0.7); EOS % 1.1 % (0.0-4.0); HEMATOCRIT 49.4 % (34.0-47.0); LYMPH # 2.4 K/uL (1.0-4.3); LYMPH % 20.4 % (20.0-40.0); MEAN CELL VOLUME 95.7 fl (81.0-99.0); MEAN CORPUSCULAR HEMOGLOBIN 31.4 pg (27.0-31.0); MEAN CORPUSCULAR HGB CONC 32.8 g/dL (33.0-37.0); MEAN PLATELET VOLUME 7.7 fl (7.2-11.7); MONO # 0.5 K/uL (0.0-0.8); MONO % 4.6 % (0.0-10.0); NEUT # 8.8 K/uL (1.8-7.0); NEUT % 73.4 % (50.0-75.0); NRBC % 0.3 % (0.0-0.0); RED CELL DISTRIBUTION WIDTH 14.4 % (11.5-14.5)
[2017-02-24 20:39] LABS: ALB/GLOB RATIO 1.2 (1.0-2.1); ALCOHOL SERUM < 10 mg/dl (0-10); ALKALINE PHOSPHATASE 91 U/L (38-126); ALT/SGPT 27 U/L (9-52); AST/SGOT 32 U/L (14-36); BILIRUBIN,TOTAL 0.9 mg/dl (0.2-1.3); BLOOD UREA NITROGEN 7 mg/dl (7-17); CALCIUM 10.2 mg/dL (8.4-10.2); CARBON DIOXIDE 24 mmol/L (22-30); CHLORIDE 104 mmol/L (98-107); GFR AFRICAN-AMERICAN > 60; GLUCOSE,RANDOM 136 mg/dL (65-105); LIPASE 252 U/L (23-300); SODIUM 142 mmol/l (132-148); TOTAL PROTEIN 8.1 G/DL (6.3-8.2)
[2017-02-24 20:46] LABS: RBC URINE 36 /hpf (0-3); URINE BACTERIA RARE (<OCC); URINE BILIRUBIN NEGATIVE (NEGATIVE); URINE BLOOD SMALL (NEGATIVE); URINE CALCIUM OXALATE CRYSTALS FEW /hpf (<OCC); URINE COLOR AMBER (YELLOW); URINE GLUCOSE (UA) NEG (Normal); URINE KETONE TRACE mg/dL (NEGATIVE); URINE LEUKOCYTE ESTERASE NEG Leu/uL (Negative); URINE PROTEIN 100 mg/dL (NEGATIVE); URINE UROBILINOGEN 0.2-1.0 mg/dL (0.2-1.0); WBC URINE 3 /hpf (0-5)
[2017-02-24 21:51] VITALS: PULSE 87
[2017-02-24 22:09] VITALS: BP 143/87
== END 2017-02-24 22:09 | disposition home or self-care (01) ==
LOC: H.ER 19:29
DX: K52.9 Noninfective gastroenteritis and colitis, unspecified (principal); E11.9 Type 2 diabetes mellitus without complications
CPT/HCPCS: 80053; 80320; 81003; 81025; 83615; 83690; 85025; 96361; 96374; 96375; 99283; J1885; J2765; J7040

== ENCOUNTER 2017-03-26 06:24 | Emergency (ER) | payer MEDICAID ==
[2017-03-26 06:25] VITALS: BMI 31.2
[2017-03-26 06:58] VITALS: TEMP 98.8
[2017-03-26] MEDS ORDERED: Sodium Chloride 0.9% 1,000 ML IV STA (07:06)
[2017-03-26 07:37] LABS: BASO % 0.6 % (0.0-2.0); EOS # 0.1 K/uL (0.0-0.7); EOS % 1.9 % (0.0-4.0); HEMATOCRIT 42.4 % (34.0-47.0); LYMPH % 34.7 % (20.0-40.0); MEAN CORPUSCULAR HEMOGLOBIN 31.4 pg (27.0-31.0); MEAN PLATELET VOLUME 7.3 fl (7.2-11.7); MONO # 0.5 K/uL (0.0-0.8); MONO % 7.9 % (0.0-10.0); NEUT # 3.2 K/uL (1.8-7.0); NEUT % 54.9 % (50.0-75.0); NRBC % 0.1 % (0.0-0.0); RED CELL DISTRIBUTION WIDTH 13.7 % (11.5-14.5); WHITE BLOOD COUNT 5.8 K/uL (4.8-10.8)
[2017-03-26 07:42] LABS: MEAN CELL VOLUME 92.5 fl (81.0-99.0)
[2017-03-26 07:49] LABS: ALB/GLOB RATIO 1.2 (1.0-2.1); ALKALINE PHOSPHATASE 71 U/L (38-126); ALT/SGPT 42 U/L (9-52); AST/SGOT 53 U/L (14-36); BILIRUBIN,TOTAL 0.5 mg/dl (0.2-1.3); BLOOD UREA NITROGEN 6 mg/dl (7-17); CALCIUM 9.1 mg/dL (8.4-10.2); CARBON DIOXIDE 24 mmol/L (22-30); CHLORIDE 103 mmol/L (98-107); GFR AFRICAN-AMERICAN > 60; GLUCOSE,RANDOM 108 mg/dL (65-105); LIPASE 453 U/L (23-300); POTASSIUM 3.9 MMOL/L (3.6-5.0); SODIUM 142 mmol/l (132-148); TOTAL PROTEIN 7.3 G/DL (6.3-8.2)
--- NOTE | 2017-03-26 08:00 | ED PDOC ---
HPI: Abdomen Time Seen by Provider: 03/26/17 06:39 Chief Complaint (Nursing): Abdominal Pain Chief Complaint (Provider): Abdominal Pain History Per: Patient History/Exam Limitations: no limitations Onset/Duration Of Symptoms: Hrs Outside of [place] travel?: No Current Symptoms Are (Timing): Constant Context: Food Pain Scale Rating Of: 10 Location Of Pain/Discomfort: RUQ, Epigastric Associated Symptoms: Nausea. denies: Fever, Chills, Diarrhea, Urinary Symptoms Exacerbating Factors: None Alleviating Factors: None Additional Complaint(s): Nina Garcia, a 41 year old female, with a past medical history of hypertension, pancreatitis and gastritis presents to the ED complaining of constant, non radiating abdominal pain. The patient reports that the pain started last night after she went out for dinner with her . she states that at dinner she had some wine and a shish kebab and immediately after she began having abdominal pain and nausea. Patient states that she has taken no medications for pain. Denies urinary symptoms, fevers, chills, diarrhea and vomiting. PMD: Sheng Cote Abnormal Vaginal Bleeding: No Past Medical History Reviewed: Historical Data, Nursing Documentation, Vital Signs Vital Signs: Last Vital Signs Temp 98.8 F 03/26/17 06:54 Pulse 88 03/26/17 09:17 Resp 16 03/26/17 09:17 BP 160/99 H 03/26/17 09:17 Pulse Ox 98 03/26/17 10:01 - Medical History PMH: Diabetes (resolved after bariatic surgery), Gastritis, HTN, Hypercholesterolemia (resolved after bariatric surgery), Pancreatitis Denies: CAD, CVA, HIV, Chronic Kidney Disease, Sleep Apnea - Surgical History Surgical History: Other surgeries: Gastric bypass surgery, Morbidly Obese - Family History Family History: States: [place], CAD, Diabetes, Hypertension Denies: Stroke - Living Arrangements Living Arrangements: With Family - Social History Current smoker - smoking cessation education provided: No Ex-Smoker (has not smoked in the last 12 months): No Alcohol: Occasional Drugs: Denies - Immunization History Hx Tetanus Toxoid Vaccination: No Hx Influenza Vaccination: No Hx Pneumococcal Vaccination: Yes (prior to sx) - Home Medications Home Medications: Ambulatory Orders Medication Instructions Recorded Dexlansoprazole [Dexilant] 60 mg PO DAILY 01/11/17 Lisinopril [Zestril] 10 mg PO DAILY 01/11/17 Ciprofloxacin HCl [Cipro] 500 mg PO BID #14 tablet 01/14/17 Metronidazole [Flagyl] 500 mg PO Q8H #21 tablet 01/14/17 Simethicone [Mylicon Chew Tab] 80 mg PO TID PRN #20 tab 01/14/17 oxyCODONE/Acetaminophen [Percocet 1 tab PO Q4H PRN #10 tab 01/14/17 5/325 mg Tab] Dicyclomine [Bentyl] 10 mg PO QID #30 cap 02/24/17 Loperamide [Imodium] 2 mg PO PRN PRN #10 cap 02/24/17 Ondansetron [Zofran] 4 mg PO Q8H #12 tab 02/24/17 Famotidine [Pepcid] 20 mg PO BID #28 tab 03/26/17 Ondansetron [Zofran] 4 mg PO Q8H #9 tab 03/26/17 - Allergies Allergies/Adverse Reactions: Allergies Allergy/AdvReac Type Severity Reaction Status Date / Time No Known Allergies Allergy Verified 02/24/17 19:38 Review of Systems ROS Statement: Except As Marked, All Systems Reviewed And Found Negative Constitutional: Negative for: Fever, Chills Gastrointestinal: Positive for: Nausea, Abdominal Pain (right upper abdomen). Negative for: Vomiting, Diarrhea Genitourinary Female: Negative for: Dysuria, Frequency, Incontinence, Hematuria Physical Exam - Reviewed Nursing Documentation Reviewed: Yes Vital Signs Reviewed: Yes - Physical Exam Appears: Positive for: Non-toxic, Uncomfortable (mild-moderate discomfort) Head Exam: Positive for: ATRAUMATIC, NORMAL INSPECTION, NORMOCEPHALIC Skin: Positive for: Normal Color, Warm, Dry. Negative for: Rash Eye Exam: Positive for: Normal appearance, EOMI, PERRL. Negative for: Nystagmus ENT: Positive for: Normal ENT Inspection. Negative for: Nasal Congestion, Tonsillar Exudate Neck: Positive for: Normal, Painless ROM, Supple Cardiovascular/Chest: Positive for: Regular Rate, Rhythm, Chest Non Tender. Negative for: Tachycardia Respiratory: Positive for: Normal Breath Sounds. Negative for: Rales, Rhonchi, Wheezing, Respiratory Distress Gastrointestinal/Abdominal: Positive for: Bowel Sounds (sound in all quadrants) , Soft, Tenderness (Tenderness to Right upper quadrant and epigastric area.). Negative for: Mass, Guarding, Rebound Back: Positive for: Normal Inspection. Negative for: L CVA Tenderness, R CVA Tenderness, Vertebral Tenderness Extremity: Positive for: Normal ROM. Negative for: Tenderness, Calf Tenderness , Deformity, Swelling Lymphatic: Positive for: Normal Exam. Negative for: Adenopathy Neurologic/Psych: Positive for: Alert, Oriented, Gait - Laboratory Results Result Diagrams: 03/26/17 07:20 03/26/17 07:20 - ECG O2 Sat by Pulse Oximetry: 98 (RA) Pulse Ox Interpretation: Normal Medical Decision Making Medical Decision Makin Initial Impression: 41 year old female presenting with Gastritis r/o colecistitis Initial Plan: * EKG * CMP * Lipase * Troponin * Udip * CBC * NS 1000ml IV 1000mls/hr * Pepcid 20mg IVP * Toradol 30mg IVP * Zofran 4mg IVP * Urinalysis * US Abdomen Complete * Reevaluation 0658 Udip and Upreg both negative 0717 EKG Performed: * Normal Sinus rhythm * Normal access rate of 94 [id number] US Abdomen complete HISTORY: upper abd pain, tenderness upper RUQ COMPARISON: Limited abdominal ultrasound performed 01/11/17, CT of the abdomen and pelvis with contrast performed 01/10/17 TECHNIQUE: Sonographic evaluation of the abdomen. FINDINGS: LIVER: Measures 17.0 cm in sagittal dimension. Echogenic liver may be seen in setting of hepatic parenchymal disease or fatty infiltration. No focal hepatic mass identified. The main portal vein appears patent with normal directional flow. No intrahepatic bile duct dilatation. GALLBLADDER: No gallstones. No gallbladder wall thickening. Negative sonographic Sue's sign as assessed by the engraver copperplate. COMMON BILE DUCT: Measures 3 mm. PANCREAS: Not well visualized. RIGHT KIDNEY: Measures 9.5 x 5.6 x 5.0 cm. No obstructing calculus or hydronephrosis identified. LEFT KIDNEY: Measures 9.2 x 5.6 x 5.1 cm. No obstructing calculus or hydronephrosis identified. SPLEEN: Measures approximately 7.6 cm. AORTA: Limited views appear unremarkable. IVC: Limited views appear unremarkable. OTHER FINDINGS: None. IMPRESSION: Echogenic liver may be seen in setting of hepatic parenchymal disease or fatty infiltration. Patient is feeling better Scribe Attestation Documented by Jazmín Champion acting as a scribe for Chrissy Wood MD. Provider Attestation All medical record entries made by the Scribe were at my direction and personally dictated by me. I have reviewed the chart and agree that the record accurately reflects my personal performance of the history, physical exam, medical decision making, and the department course for this patient. I have also personally directed, reviewed, and agree with the discharge instructions and disposition. Disposition - Clinical Impression Clinical Impression: Gastritis - Patient ED Disposition Is Patient to be Admitted: No Counseled Patient/Family Regarding: Studies Performed, Diagnosis - Disposition Referrals: Sheng Acosta MD [Family Provider] - Disposition: Routine/Home Disposition Time: 09:45 Condition: IMPROVED Prescriptions: Famotidine [Pepcid] 20 mg PO BID #28 tab Ondansetron [Zofran] 4 mg PO Q8H #9 tab Instructions: Gastritis (ED) Forms: [facility] (Fijian) - POA Present On Arrival: None
[2017-03-26 08:05] LABS: RBC URINE 3 /hpf (0-3); URINE BILIRUBIN NEGATIVE (NEGATIVE); URINE BLOOD NEGATIVE (NEGATIVE); URINE COLOR STRAW (YELLOW); URINE GLUCOSE (UA) NEG (Normal); URINE KETONE NEGATIVE (NEGATIVE); URINE LEUKOCYTE ESTERASE NEG Leu/uL (Negative); URINE PROTEIN NEGATIVE (NEGATIVE); URINE UROBILINOGEN 0.2-1.0 mg/dL (0.2-1.0); WBC URINE < 1 /hpf (0-5)
[2017-03-26 09:17] VITALS: RESP 16
--- NOTE | 2017-03-26 09:20 | US ---
HISTORY: upper abd pain, tenderness upper RUQ COMPARISON: Limited abdominal ultrasound performed 01/11/17, CT of the abdomen and pelvis with contrast performed 01/10/17 TECHNIQUE: Sonographic evaluation of the abdomen. FINDINGS: LIVER: Measures 17.0 cm in sagittal dimension. Echogenic liver may be seen in setting of hepatic parenchymal disease or fatty infiltration. No focal hepatic mass identified. The main portal vein appears patent with normal directional flow. No intrahepatic bile duct dilatation. GALLBLADDER: No gallstones. No gallbladder wall thickening. Negative sonographic Sue's sign as assessed by the carriage dogger. COMMON BILE DUCT: Measures 3 mm. PANCREAS: Not well visualized. RIGHT KIDNEY: Measures 9.5 x 5.6 x 5.0 cm. No obstructing calculus or hydronephrosis identified. LEFT KIDNEY: Measures 9.2 x 5.6 x 5.1 cm. No obstructing calculus or hydronephrosis identified. SPLEEN: Measures approximately 7.6 cm. AORTA: Limited views appear unremarkable. IVC: Limited views appear unremarkable. OTHER FINDINGS: None. IMPRESSION: Echogenic liver may be seen in setting of hepatic parenchymal disease or fatty infiltration.
[2017-03-26 10:45] VITALS: BP 130/67; PULSE 96; O2SAT 100
--- NOTE | 2017-03-26 19:37 | CARD ---
APPROVED REPORT EKG Measurement Heart [id number] <Conclusion> Normal sinus rhythm Prolonged QT Abnormal ECG
== END 2017-03-26 10:44 | disposition home or self-care (01) ==
LOC: H.ER 06:24
DX: K29.70 Gastritis, unspecified, without bleeding (principal); I10 Essential (primary) hypertension
CPT/HCPCS: 76700; 80053; 81003; 81025; 83690; 84484; 85025; 93005; 96374; 96375; 96376; 99283; J1885; J2270; J2405; J7040

== ENCOUNTER 2017-03-27 02:54 | Inpatient (IN) | payer MEDICAID ==
[2017-03-27 02:55] VITALS: BMI 31.2
[2017-03-27] MEDS ORDERED: Sodium Chloride 0.9% 1,000 ML IV STA (03:52)
--- NOTE | 2017-03-27 03:56 | ED PDOC ---
HPI: Abdomen Time Seen by Provider: 03/27/17 03:09 Chief Complaint (Nursing): Abdominal Pain Chief Complaint (Provider): Abdominal Pain History Per: Patient History/Exam Limitations: no limitations Onset/Duration Of Symptoms: Hrs Current Symptoms Are (Timing): Still Present Associated Symptoms: Vomiting, Diarrhea. denies: Fever Additional Complaint(s): Patient is a 41 y/o female with a past medical history of hypertension and chronic pancreatitis, who presents tot he ED complaining of abdominal pain since earlier today. The patient presented to the ED yesterday for the same complaint and was assessed and discharged. Upon arriving home, the pain worsened after she drank wine. Patient reports vomiting and diarrhea at home, but no fever or other associated symptoms. PCP: Provider AIRAM JOHNSON Past Medical History Reviewed: Historical Data, Nursing Documentation, Vital Signs Vital Signs: Last Vital Signs Temp 98.9 F 03/27/17 03:09 Pulse 108 H 03/27/17 03:09 Resp 18 03/27/17 03:09 BP 153/118 H 03/27/17 03:09 Pulse Ox 100 03/27/17 07:11 - Medical History PMH: Anxiety, Diabetes (resolved after bariatic surgery), Gastritis, HTN, Hypercholesterolemia (resolved after bariatric surgery), Pancreatitis Denies: CAD, CVA, HIV, Chronic Kidney Disease, Sleep Apnea - Surgical History Surgical History: - Family History Family History: States: [place], CAD, Diabetes, Hypertension Denies: Stroke - Social History Current smoker - smoking cessation education provided: No (Former smoker) Alcohol: Social Drugs: Denies - Immunization History Hx Tetanus Toxoid Vaccination: No Hx Influenza Vaccination: No Hx Pneumococcal Vaccination: Yes (prior to sx) - Home Medications Home Medications: Ambulatory Orders Medication Instructions Recorded Dexlansoprazole [Dexilant] 60 mg PO DAILY 01/11/17 Lisinopril [Zestril] 10 mg PO DAILY 01/11/17 Ciprofloxacin HCl [Cipro] 500 mg PO BID #14 tablet 01/14/17 Metronidazole [Flagyl] 500 mg PO Q8H #21 tablet 01/14/17 Simethicone [Mylicon Chew Tab] 80 mg PO TID PRN #20 tab 01/14/17 oxyCODONE/Acetaminophen [Percocet 1 tab PO Q4H PRN #10 tab 01/14/17 5/325 mg Tab] Dicyclomine [Bentyl] 10 mg PO QID #30 cap 02/24/17 Loperamide [Imodium] 2 mg PO PRN PRN #10 cap 02/24/17 Ondansetron [Zofran] 4 mg PO Q8H #12 tab 02/24/17 Famotidine [Pepcid] 20 mg PO BID #28 tab 03/26/17 Ondansetron [Zofran] 4 mg PO Q8H #9 tab 03/26/17 - Allergies Allergies/Adverse Reactions: Allergies Allergy/AdvReac Type Severity Reaction Status Date / Time No Known Allergies Allergy Verified 02/24/17 19:38 Review of Systems ROS Statement: Except As Marked, All Systems Reviewed And Found Negative Constitutional: Negative for: Fever Gastrointestinal: Positive for: Vomiting, Abdominal Pain, Diarrhea Physical Exam - Reviewed Nursing Documentation Reviewed: Yes Vital Signs Reviewed: Yes - Physical Exam Appears: Positive for: Non-toxic, No Acute Distress Head Exam: Positive for: ATRAUMATIC, NORMOCEPHALIC Skin: Positive for: Normal Color, Warm, Dry Eye Exam: Positive for: Normal appearance, EOMI, PERRL Neck: Positive for: Normal, Painless ROM, Supple Cardiovascular/Chest: Positive for: Regular Rate, Rhythm. Negative for: Murmur Respiratory: Positive for: Normal Breath Sounds. Negative for: Respiratory Distress Gastrointestinal/Abdominal: Positive for: Soft, Tenderness (Mild mid epigastric tenderness) Back: Positive for: Normal Inspection. Negative for: L CVA Tenderness, R CVA Tenderness, Vertebral Tenderness Extremity: Positive for: Normal ROM. Negative for: Pedal Edema Neurologic/Psych: Positive for: Alert, Oriented (x3). Negative for: Motor/ Sensory Deficits - Laboratory Results Result Diagrams: 03/27/17 04:00 03/27/17 04:00 - ECG O2 Sat by Pulse Oximetry: 100 (RA) Pulse Ox Interpretation: Normal Medical Decision Making Medical Decision Making: Time: 03:43 Initial Impression: Abdominal pain, rule out pancreatitis Initial Plan: -Labs -Sodium Chloride 0.9% 1,000ml IV 999mls/hr -Famotidine 20mg IVP -Zofran Inj 4mg IV Time: 04:34 -Patient still has abdominal pain after Pepcid, Morphine ordered for pain. Orders: -CT Abdomen/Pelvis PO & IV Contrast -Morphine 2mg IV -Iohexol 50ml PO lipase noted to be slightly more elevated as compared to when was seen yesterday in the ER 7 am sign out to Dr Guillory pending CT results and reevaluation Scribe Attestation: Documented by Abimael Bolaños, acting as a scribe for Carla Loya MD Provider Scribe Attestation: All medical record entries made by the Scribe were at my direction and personally dictated by me. I have reviewed the chart and agree that the record accurately reflects my personal performance of the history, physical exam, medical decision making, and the department course for this patient. I have also personally directed, reviewed, and agree with the discharge instructions and disposition. Disposition - Clinical Impression Clinical Impression: Abdominal pain - Patient ED Disposition Is Patient to be Admitted: Transfer of Care - Disposition Referrals: Sheng Acosta MD [Primary Care Provider] - Disposition: Transfer of Care Disposition Time: 07:00 Condition: STABLE Forms: [employer] (Bulgarian) Patient Signed Over To: Jcarlos Guillory
[2017-03-27 04:06] LABS: BASO % 0.3 % (0.0-2.0); EOS # 0.2 K/uL (0.0-0.7); EOS % 2.2 % (0.0-4.0); HEMATOCRIT 42.3 % (34.0-47.0); LYMPH # 1.5 K/uL (1.0-4.3); LYMPH % 21.3 % (20.0-40.0); MEAN CORPUSCULAR HEMOGLOBIN 32.1 pg (27.0-31.0); MEAN CORPUSCULAR HGB CONC 34.5 g/dL (33.0-37.0); MEAN PLATELET VOLUME 7.6 fl (7.2-11.7); MONO # 0.4 K/uL (0.0-0.8); MONO % 6.1 % (0.0-10.0); NEUT # 4.9 K/uL (1.8-7.0); NEUT % 70.1 % (50.0-75.0); NRBC % 0.1 % (0.0-0.0)
[2017-03-27 04:17] LABS: ALB/GLOB RATIO 1.2 (1.0-2.1); ALKALINE PHOSPHATASE 95 U/L (38-126); ALT/SGPT 41 U/L (9-52); AST/SGOT 53 U/L (14-36); BILIRUBIN,TOTAL 0.7 mg/dl (0.2-1.3); BLOOD UREA NITROGEN 5 mg/dl (7-17); CALCIUM 9.5 mg/dL (8.4-10.2); CARBON DIOXIDE 25 mmol/L (22-30); CHLORIDE 104 mmol/L (98-107); GFR AFRICAN-AMERICAN > 60; GLUCOSE,RANDOM 107 mg/dL (65-105); LIPASE 676 U/L (23-300); POTASSIUM 3.7 MMOL/L (3.6-5.0); SODIUM 141 mmol/l (132-148); TOTAL PROTEIN 7.5 G/DL (6.3-8.2)
[2017-03-27] MEDS ORDERED: Iohexol 240 (50 ml) PO ONE (04:34)
[2017-03-27] MEDS ORDERED: Iohexol 300 100 ML IJ ONE (06:33)
[2017-03-27] MEDS ORDERED: Sodium Chloride 0.9% 50 ML IV ONE (06:33)
--- NOTE | 2017-03-27 07:28 | CT ---
PROCEDURE: CT Abdomen and Pelvis with contrast HISTORY: abdominal pain COMPARISON: None. TECHNIQUE: Contrast dose: Omnipaque 300, 100 cc. Radiation dose: Total exam DLP = 922.27 mGy-cm. This CT exam was performed using one or more of the following dose reduction techniques: Automated exposure control, adjustment of the mA and/or kV according to patient size, and/or use of iterative reconstruction technique. FINDINGS: LOWER THORAX: Stable, unremarkable. LIVER: Diffuse penetration liver is again appreciated. No discrete mass is seen in the interval. GALLBLADDER AND BILE DUCTS: A distended gallbladder is again seen without cholelithiasis or mural thickening. No direct CT sign of cholecystitis at this time. Clinically correlate. PANCREAS: Peripancreatic reaction is again appreciated though not as prominent as previously shown. The pancreas also does not appear enlarged at the level the head or neck as previously seen. It appears [id number] enlarged. No significant pancreatic duct dilatation. SPLEEN: Unremarkable. ADRENALS: Unremarkable. No mass. KIDNEYS AND URETERS: Unremarkable. No hydronephrosis. No solid mass. VASCULATURE: Unremarkable. No aortic aneurysm. BOWEL: Lowers the sub reveals prior gastric bypass surgery once again. No obstruction. No gross mural thickening. APPENDIX: Normal appendix. PERITONEUM: Unremarkable. No free fluid. No free air. LYMPH NODES: Unremarkable. No enlarged lymph nodes. BLADDER: Unremarkable. REPRODUCTIVE: 1.8 cm right perineal cyst is again identified, stable. BONES: No acute fracture. OTHER FINDINGS: None. IMPRESSION: Findings suspicious for acute pancreatitis though not as prominent as previously shown on prior CT 11/20/2016. Clinical correlation is advised. Prior gastric bypass again noted.
--- NOTE | 2017-03-27 07:52 | ED PDOC ---
- Laboratory Results Result Diagrams: 03/27/17 04:00 03/27/17 04:00 - ECG O2 Sat by Pulse Oximetry: 100 (RA) Disposition - Clinical Impression Clinical Impression: Abdominal pain, Pancreatitis - POA Present On Arrival: None - Disposition Referrals: Sheng Acosta MD [Primary Care Provider] - Disposition: Hospitalized as Observation Patient Disposition Time: 07:49 Condition: FAIR Forms: [facility] (Maori)
[2017-03-27] MEDS ORDERED: Lactated Ringer's 500 ML IV SCH (08:00)
[2017-03-27 08:37] LABS: CHOLESTEROL 186 mg/dL (0-199)
[2017-03-27] MEDS: Lactated Ringer's 1,000 ML IV SCH ×5 (08:58→22:18)
[2017-03-27] MEDS ORDERED: Simethicone 40 mg/0.6 ml Liquid (30 ml) PO PRN (11:02)
--- NOTE | 2017-03-27 20:08 | MRI ---
EXAM: MR Abdomen Without Intravenous Contrast, MRCP Protocol EXAM DATE/TIME: 03/27/2017 3:15 PM CLINICAL HISTORY: 41 years old, female; Signs and symptoms; Other: Recurrent pancreatitis; Patient HX: Abd pain since earlier today, after drinking wine TECHNIQUE: Multiplanar magnetic resonance images of the abdomen without intravenous contrast using MRCP protocol. COMPARISON: CT abdomen done earlier on the same day, at 6:49 AM. FINDINGS: LIMITATIONS: Moderate streak/motion artifact. Artifact related to the patient's body habitus. Pulsation artifact. BILE DUCTS: No evidence of significant biliary ductal dilatation. No definite common bile duct stones visualized. GALLBLADDER: Mild gallbladder dilatation. No gallstones seen. No evidence of pericholecystic fluid. LIVER: No acute abnormality of the liver identified. PANCREAS: Findings highly suspicious for moderate to severe acute pancreatitis. There is peripancreatic fluid, moderate to severe in degree, a new finding compared to the earlier CT. The pancreas appears mildly enlarged, and the parenchyma appears edematous, particularly in the pancreatic head. There is a moderate amount of fluid nearby retroperitoneal fluid, new/significantly increased compared to the earlier CT. No evidence of focal peripancreatic fluid collection. No evidence of splenic vein thrombosis. SPLEEN: No acute abnormality of the spleen identified. ADRENALS: No acute abnormality of the adrenal glands identified. KIDNEYS AND URETERS: 8 mm fluid signal intensity lesion in the left kidney, most likely a small cyst. No hydronephrosis. STOMACH AND BOWEL: No evidence of bowel obstruction. INTRAPERITONEAL SPACE: Moderate to large amount of abdominal free fluid, a a new finding since the prior CT. SOFT TISSUES: Findings in the gluteal subcutaneous fat bilaterally which are most compatible with innumerable small injection granulomas. There is also diffuse fluid in the gluteal subcutaneous fat bilaterally. Findings appear grossly stable. IMPRESSION: - Findings highly suspicious for moderate to severe acute pancreatitis, significantly worsened in degree compared to an abdominal CT done earlier today. There is new/significantly increased diffuse peripancreatic fluid. - New moderate amount of abdominal and pelvic free fluid. - No evidence of gallstones or biliary ductal dilatation. - See above for remaining findings.
[2017-03-28 05:29] LABS: ALB/GLOB RATIO 1.2 (1.0-2.1); ALKALINE PHOSPHATASE 71 U/L (38-126); ALT/SGPT 29 U/L (9-52); AST/SGOT 26 U/L (14-36); BILIRUBIN,TOTAL 0.8 mg/dl (0.2-1.3); BLOOD UREA NITROGEN 4 mg/dl (7-17); CALCIUM 9.2 mg/dL (8.4-10.2); CARBON DIOXIDE 29 mmol/L (22-30); CHLORIDE 100 mmol/L (98-107); GFR AFRICAN-AMERICAN > 60; GLUCOSE,RANDOM 87 mg/dL (65-105); POTASSIUM 3.7 MMOL/L (3.6-5.0); SODIUM 138 mmol/l (132-148); TOTAL PROTEIN 6.2 G/DL (6.3-8.2)
[2017-03-28 05:31] LABS: BASO % 0.3 % (0.0-2.0); EOS # 0.1 K/uL (0.0-0.7); EOS % 2.3 % (0.0-4.0); HEMATOCRIT 39.3 % (34.0-47.0); LYMPH # 1.3 K/uL (1.0-4.3); LYMPH % 23.7 % (20.0-40.0); MEAN CELL VOLUME 94.1 fl (81.0-99.0); MONO # 0.4 K/uL (0.0-0.8); MONO % 6.9 % (0.0-10.0); NEUT # 3.8 K/uL (1.8-7.0); NEUT % 66.8 % (50.0-75.0); RED CELL DISTRIBUTION WIDTH 14.1 % (11.5-14.5); WHITE BLOOD COUNT 5.7 K/uL (4.8-10.8)
[2017-03-28 06:01] LABS: LIPASE 3994 U/L (23-300)
--- NOTE | 2017-03-28 07:11 | CP.PCM.HP ---
History of Present Illness - History of Present Illness History of Present Illness: pt admitted for pancreatitis. bp noted to be elevated on admission. bp wnl at present. lipase noted. gi consult appriciated. pt states drank 1 bottle of wine the day of admission. Present on Admission - Present on Admission Any Indicators Present on Admission: No Review of Systems - Gastrointestinal Gastrointestinal: As Per HPI, Abdominal Pain Past Patient History - Infectious Disease Hx of Infectious Diseases: None - Past Medical History & Family History Past Medical History?: Yes - Past Social History Smoking Status: Former Smoker - CARDIAC Hx Hypercholesterolemia: Yes (resolved after bariatric surgery) Hx Hypertension: Yes - PULMONARY Hx Sleep Apnea: No - NEUROLOGICAL Hx Neurological Disorder: No - HEENT Hx HEENT Problems: No - RENAL Hx Chronic Kidney Disease: No - ENDOCRINE/METABOLIC Hx Endocrine Disorders: No - HEMATOLOGICAL/ONCOLOGICAL Hx AIDS: No Hx Human Immunodeficiency Virus (HIV): No - INTEGUMENTARY Hx Dermatological Problems: No - MUSCULOSKELETAL/RHEUMATOLOGICAL Hx Musculoskeletal Disorders: No Hx Falls: No - GASTROINTESTINAL Hx Gastritis: Yes Hx Pancreatitis: Yes - GENITOURINARY/GYNECOLOGICAL Hx Genitourinary Disorders: No - PSYCHIATRIC Hx Anxiety: Yes Hx Substance Use: No - SURGICAL HISTORY Hx Surgeries: Yes Hx Section: Yes Hx Gastric Bypass Surgery: Yes - ANESTHESIA Hx Anesthesia: Yes Hx Anesthesia Reactions: No Hx Malignant Hyperthermia: No Has any member of the family had a problem w/ anesthesia?: No Meds Allergies/Adverse Reactions: Allergies Allergy/AdvReac Type Severity Reaction Status Date / Time No Known Allergies Allergy Verified 02/24/17 19:38 Physical Exam - Constitutional Appears: Well, Non-toxic, No Acute Distress - Head Exam Head Exam: ATRAUMATIC, NORMAL INSPECTION, NORMOCEPHALIC - Eye Exam Eye Exam: EOMI, Normal appearance, PERRL Pupil Exam: NORMAL ACCOMODATION, PERRL - ENT Exam ENT Exam: Mucous Membranes Moist, Normal Exam - Neck Exam Neck exam: Positive for: Normal Inspection - Respiratory Exam Respiratory Exam: Clear to Auscultation Bilateral, NORMAL BREATHING PATTERN - Cardiovascular Exam Cardiovascular Exam: REGULAR RHYTHM, RRR, +S1, +S2 - GI/Abdominal Exam GI & Abdominal Exam: Normal Bowel Sounds, Soft, Tenderness Additional comments: diffuse abd tenderness localizes ruq - Extremities Exam Extremities exam: Positive for: full ROM, normal capillary refill, normal inspection, pedal pulses present - Back Exam Back exam: NORMAL INSPECTION - Neurological Exam Neurological exam: Alert, CN II-XII Intact, Normal Gait, Oriented x3, Reflexes Normal - Psychiatric Exam Psychiatric exam: Normal Affect, Normal Mood - Skin Skin Exam: Dry, Intact, Normal Color, Warm Results - Vital Signs Recent Vital Signs: Last Vital Signs Temp 98 F 03/28/17 05:05 Pulse 76 03/28/17 05:05 Resp 18 03/28/17 05:05 BP 134/88 03/28/17 05:05 Pulse Ox 98 03/28/17 05:05 - Labs Result Diagrams: 03/28/17 04:30 03/28/17 04:30 Labs: Laboratory Results - last 24 hr 03/27/17 03/28/17 03/28/17 04:00 04:30 04:30 WBC 5.7 RBC 4.18 Hgb 13.4 Hct 39.3 MCV 94.1 MCH 32.0 H MCHC 34.0 RDW 14.1 Plt Count 219 MPV 8.0 Neut % (Auto) 66.8 Lymph % (Auto) 23.7 [place] % (Auto) 6.9 Eos % (Auto) 2.3 Baso % (Auto) 0.3 Neut # 3.8 Lymph # 1.3 [place] # 0.4 Eos # 0.1 Baso # 0.0 Sodium 141 138 Potassium 3.7 3.7 Chloride 104 100 Carbon Dioxide 25 29 Anion Gap 17 14 BUN 5 L 4 L Creatinine 0.6 L 0.6 L Est GFR ( Amer) > 60 > 60 Est GFR (Non-Af Amer) > 60 > 60 Random Glucose 107 H 87 Calcium 9.5 9.2 Total Bilirubin 0.7 0.8 AST 53 H 26 ALT 41 29 Alkaline Phosphatase 95 71 Total Protein 7.5 6.2 L Albumin 4.1 3.3 L Globulin 3.3 2.8 Albumin/Globulin Ratio 1.2 1.2 Triglycerides 225 H Cholesterol 186 LDL Cholesterol Direct 81 HDL Cholesterol 83 H Lipase 676 H 3994 H Beta HCG, Quant < 2.39 Assessment & Plan (1) DVT prophylaxis Assessment and Plan: scd and ae hose ambulation Status: Acute (2) Pancreatitis Assessment and Plan: pain control, anusea control gi ivf npo trend lipase Status: Acute (3) Hypertension Assessment and Plan: cont lisinopril added metoprolol and norvasc monitor Status: Acute Decision To Admit - Pt Status Changed To: Hospital Disposition Of: Inpatient - Admit Certification Admit to Inpatient:: After my assessment, the patient will require hospitalization for at least two midnights. This is because of the severity of symptoms shown, intensity of services needed, and/or the medical risk in this patient being treated as an outpatient. - . Bed Request Type: Med/Surg Admitting Physician: aDrryn Oneill
[2017-03-28] MEDS: Pantoprazole 40 mg EC Tab PO SCH (09:28)
--- NOTE | 2017-03-28 12:45 | CARD ---
APPROVED REPORT EKG Measurement Heart [id number] <Conclusion> Normal sinus rhythm Prolonged QT Abnormal ECG
[2017-03-28] MEDS: Lactated Ringer's 1,000 ML IV SCH ×12 (12:55→23:17)
[2017-03-28] MEDS ORDERED: Lactated Ringer's 1,000 ML IV SCH ×3 (14:00→21:00)
[2017-03-28] MEDS ORDERED: HYDROmorphone 1 mg/ml ISec IVP PRN (14:08)
[2017-03-28] MEDS: HYDROmorphone 0.5 mg/0.5 ml ISec IVP PRN ×2 (18:21→22:22)
[2017-03-29] MEDS: Lactated Ringer's 1,000 ML IV SCH ×12 (00:15→21:29)
[2017-03-29] MEDS ORDERED: Lactated Ringer's 1,000 ML IV SCH ×5 (01:00→20:00)
[2017-03-29] MEDS ORDERED: Labetalol 5 mg/ml Inj 20ML IVP STA (01:19)
[2017-03-29] MEDS: HYDROmorphone 0.5 mg/0.5 ml ISec IVP PRN (02:12)
[2017-03-29] MEDS: Simethicone 80 mg Chewtab PO PRN ×3 (04:59→19:51)
[2017-03-29 05:41] LABS: BASO % 0.3 % (0.0-2.0); EOS # 0.1 K/uL (0.0-0.7); EOS % 1.8 % (0.0-4.0); HEMATOCRIT 35.8 % (34.0-47.0); LYMPH # 1.1 K/uL (1.0-4.3); LYMPH % 15.9 % (20.0-40.0); MEAN CELL VOLUME 94.6 fl (81.0-99.0); MEAN CORPUSCULAR HGB CONC 33.8 g/dL (33.0-37.0); MEAN PLATELET VOLUME 7.9 fl (7.2-11.7); MONO # 0.5 K/uL (0.0-0.8); MONO % 6.5 % (0.0-10.0); NEUT # 5.4 K/uL (1.8-7.0); NEUT % 75.5 % (50.0-75.0); NRBC % 0.1 % (0.0-0.0); RED CELL DISTRIBUTION WIDTH 13.9 % (11.5-14.5); WHITE BLOOD COUNT 7.2 K/uL (4.8-10.8)
[2017-03-29 05:41] LABS: ALB/GLOB RATIO 1.1 (1.0-2.1); ALKALINE PHOSPHATASE 65 U/L (38-126); ALT/SGPT 30 U/L (9-52); AST/SGOT 25 U/L (14-36); BILIRUBIN,TOTAL 0.7 mg/dl (0.2-1.3); CALCIUM 9.3 mg/dL (8.4-10.2); CARBON DIOXIDE 27 mmol/L (22-30); CHLORIDE 98 mmol/L (98-107); GFR AFRICAN-AMERICAN > 60; GLUCOSE,RANDOM 78 mg/dL (65-105); POTASSIUM 3.6 MMOL/L (3.6-5.0); SODIUM 139 mmol/l (132-148); TOTAL PROTEIN 6.3 G/DL (6.3-8.2)
[2017-03-29 05:46] LABS: BLOOD UREA NITROGEN 2 mg/dl (7-17)
[2017-03-29 06:07] LABS: LIPASE 3683 U/L (23-300)
--- NOTE | 2017-03-29 07:15 | CP.PCM.PN ---
Subjective - Date & Time of Evaluation Date of Evaluation: 03/29/17 Time of Evaluation: 07:15 - Subjective Subjective: still w/ abd pain. no f/c, n/v/d. bw noted. bp noted. no headache, cp, dyspnea. Objective - Vital Signs/Intake and Output Vital Signs (last 24 hours): Temp Pulse Resp BP Pulse Ox 98.6 F 102 H 19 167/98 H 95 03/29/17 04:54 03/29/17 04:54 03/29/17 04:54 03/29/17 06:16 03/29/17 04:54 Intake and Output: 03/29/17 03/29/17 06:59 18:59 Intake Total 4000 Balance 4000 - Medications Medications: Current Medications Amlodipine Besylate (Norvasc) 5 mg PO DAILY [facility] Last Admin: 03/28/17 09:26 Dose: 5 mg Famotidine (Pepcid) 20 mg IVP Q12 [facility] Last Admin: 03/28/17 21:11 Dose: 20 mg Hydromorphone HCl (Dilaudid) 1 mg IVP Q4 PRN PRN Reason: Pain, severe (8-10) Last Admin: 03/29/17 07:11 Dose: 1 mg Lactated Ringer's (Lactated Ringer's) 1,000 mls @ 250 mls/hr IV .Q4H [facility] Last Admin: 03/29/17 03:11 Dose: Not Given Ketorolac Tromethamine (Toradol) 30 mg IVP Q6 PRN PRN Reason: Pain, moderate (4-7) Last Admin: 03/28/17 04:28 Dose: 30 mg Lisinopril (Zestril) 10 mg PO DAILY [facility] Last Admin: 03/28/17 09:28 Dose: 10 mg Metoprolol Tartrate (Lopressor) 25 mg PO Q12 [facility] Last Admin: 03/28/17 21:10 Dose: 25 mg Ondansetron HCl (Zofran Inj) 4 mg IVP Q6 PRN PRN Reason: Nausea/Vomiting Last Admin: 03/27/17 15:16 Dose: 4 mg Pantoprazole Sodium (Protonix Ec Tab) 40 mg PO DAILY [facility] Last Admin: 03/28/17 09:28 Dose: 40 mg Simethicone (Mylicon Chew Tab) 40 mg PO QID PRN PRN Reason: Flatulence Last Admin: 03/29/17 04:59 Dose: 40 mg Zolpidem Tartrate (Ambien) 5 mg PO HS [facility] Last Admin: 03/29/17 00:18 Dose: 5 mg - Labs Labs: 03/29/17 04:45 03/29/17 04:50 - Constitutional Appears: Well, Non-toxic, No Acute Distress - Head Exam Head Exam: ATRAUMATIC, NORMAL INSPECTION, NORMOCEPHALIC - Eye Exam Eye Exam: EOMI, Normal appearance, PERRL Pupil Exam: NORMAL ACCOMODATION, PERRL - ENT Exam ENT Exam: Mucous Membranes Moist, Normal Exam - Neck Exam Neck Exam: Full ROM, Normal Inspection. absent: Lymphadenopathy - Respiratory Exam Respiratory Exam: Clear to Ausculation Bilateral, NORMAL BREATHING PATTERN - Cardiovascular Exam Cardiovascular Exam: REGULAR RHYTHM, RRR, +S1, +S2. absent: Murmur - GI/Abdominal Exam GI & Abdominal Exam: Soft, Normal Bowel Sounds. absent: Tenderness - Extremities Exam Extremities Exam: Full ROM, Normal Capillary Refill, Normal Inspection. absent : Joint Swelling, Pedal Edema - Back Exam Back Exam: NORMAL INSPECTION - Neurological Exam Neurological Exam: Alert, Awake, CN II-XII Intact, Normal Gait, Oriented x3 - Psychiatric Exam Psychiatric exam: Normal Affect, Normal Mood - Skin Skin Exam: Dry, Intact, Normal Color, Warm Assessment and Plan (1) DVT prophylaxis Status: Acute (2) Pancreatitis Status: Acute (3) Hypertension Status: Acute - Assessment and Plan (Free Text) Assessment: (1) DVT prophylaxis Assessment and Plan: scd and ae hose ambulation Status: Acute (2) Pancreatitis Assessment and Plan: pain control, anusea control gi ivf npo trend lipase Status: Acute (3) Hypertension Assessment and Plan: cont lisinopril added metoprolol and norvasc monitor Status: Acute
--- NOTE | 2017-03-29 08:28 | CON ---
DATE: REFERRING PHYSICIAN: Dr. Santoro. REASON FOR CONSULTATION: Abdominal pain. HISTORY OF PRESENT ILLNESS: This is a pleasant 41-year-old female brought in for admission, pancreatitis, felt to be secondary to alcohol, basically had about one prior admission then developed severe abdominal pain and discomfort, but worse, some nausea, no vomiting. No fever or chills. Lying in bed comfortably, at this point in some abdominal distress. PAST MEDICAL HISTORY: As above. PAST SURGICAL HISTORY: As above. MEDICATIONS: Reviewed. REVIEW OF SYSTEMS: All other systems have been reviewed and negative apart from the HPI. PHYSICAL EXAMINATION GENERAL: A pleasant middle aged female, lying in bed . VITAL SIGNS: Reviewed in the hospital, grossly unremarkable. HEENT: Head is normocephalic and atraumatic. Eyes; pupils are equal, round and reactive to light bilaterally. No conjunctival pallor or icterus. NECK: Supple. Normal range of motion. No lymphadenopathy appreciated. LUNGS: Coarse breath sounds bilaterally. HEART: S1, S2. Regular rate and rhythm. No murmurs appreciated. ABDOMEN: Soft. Some discomfort. No rebound. No guarding. RECTAL: Deferred. EXTREMITIES: Pulses present bilaterally. SKIN: Warm, dry, and intact. NEUROLOGIC: A and O x3. LABORATORY DATA: All labs and relevant radiology have been reviewed. WBC , hemoglobin 14.6, hematocrit of 43.3. Lipase of 676, triglyceride of 225. ASSESSMENT AND PLAN: This is a 41-year-old female with pancreatitis secondary to alcohol. We will get an MRCP to rule out . Advised to stop alcohol. Aggressive intravenous hydration, pain control as needed, and Zofran for nausea, and H2 blockers for reflux. We will follow patient with you. Thank you for the consult. Edison De Leon MD/ PhD cc:
[2017-03-29] MEDS: Pantoprazole 40 mg EC Tab PO SCH (08:40)
[2017-03-29] MEDS ORDERED: Lidocaine 1% Inj (20ml) ONE (15:40)
--- NOTE | 2017-03-29 16:01 | PCM.SURG1 ---
Surgeon's Initial Post Op Note - Surgeon's Notes Surgeon: Lissette Papeterie Table Assembler: None Type of Anesthesia: Local Pre-Operative Diagnosis: Poor IV access. Operative Findings: Patent right basilic vein Post-Operative Diagnosis: Same Operation Performed: Right basilic vein 4F SL 33cm PICC placed Specimen/Specimens Removed: None Estimated Blood Loss: EBL {In ML}: 1 Date of Surgery/Procedure: 03/29/17 Time of Surgery/Procedure: 16:00
[2017-03-30] MEDS ORDERED: Lactated Ringer's 1,000 ML IV SCH ×4 (00:05→12:00)
[2017-03-30] MEDS: Lactated Ringer's 1,000 ML IV SCH ×2 (00:42→01:25)
[2017-03-30] MEDS: Simethicone 80 mg Chewtab PO PRN ×2 (04:14→15:23)
[2017-03-30 06:37] LABS: BASO % 0.3 % (0.0-2.0); EOS # 0.1 K/uL (0.0-0.7); EOS % 2.3 % (0.0-4.0); HEMATOCRIT 34.5 % (34.0-47.0); LYMPH # 1.3 K/uL (1.0-4.3); LYMPH % 21.2 % (20.0-40.0); MEAN CELL VOLUME 93.2 fl (81.0-99.0); MEAN CORPUSCULAR HEMOGLOBIN 31.8 pg (27.0-31.0); MEAN CORPUSCULAR HGB CONC 34.2 g/dL (33.0-37.0); MEAN PLATELET VOLUME 7.9 fl (7.2-11.7); MONO # 0.6 K/uL (0.0-0.8); MONO % 9.8 % (0.0-10.0); NEUT % 66.4 % (50.0-75.0); NRBC % 0.1 % (0.0-0.0); RED CELL DISTRIBUTION WIDTH 13.7 % (11.5-14.5); WHITE BLOOD COUNT 6.1 K/uL (4.8-10.8)
[2017-03-30 06:50] LABS: ALB/GLOB RATIO 1.2 (1.0-2.1); ALKALINE PHOSPHATASE 72 U/L (38-126); ALT/SGPT 29 U/L (9-52); AST/SGOT 29 U/L (14-36); BILIRUBIN,TOTAL 0.7 mg/dl (0.2-1.3); CALCIUM 9.2 mg/dL (8.4-10.2); CARBON DIOXIDE 29 mmol/L (22-30); CHLORIDE 97 mmol/L (98-107); GFR AFRICAN-AMERICAN > 60; GLUCOSE,RANDOM 81 mg/dL (65-105); LIPASE 1095 U/L (23-300); POTASSIUM 3.1 MMOL/L (3.6-5.0); SODIUM 139 mmol/l (132-148); TOTAL PROTEIN 6.8 G/DL (6.3-8.2)
[2017-03-30 07:00] LABS: BLOOD UREA NITROGEN < 2 mg/dl (7-17)
--- NOTE | 2017-03-30 07:20 | CP.PCM.PN ---
Subjective - Date & Time of Evaluation Date of Evaluation: 03/30/17 Time of Evaluation: 07:20 - Subjective Subjective: doing well, no complaints. nof /c, n/v/d. bw noted. lipase now 1000. pt asking for food. asking to be dc. case d/c w/ sotiriadis. Objective - Vital Signs/Intake and Output Vital Signs (last 24 hours): Temp Pulse Resp BP Pulse Ox 98.4 F 72 20 168/90 H 96 03/30/17 05:38 03/30/17 05:38 03/30/17 05:38 03/30/17 05:38 03/30/17 05:38 Intake and Output: 03/30/17 03/30/17 06:59 18:59 Intake Total 5250 Balance 5250 - Medications Medications: Current Medications Amlodipine Besylate (Norvasc) 10 mg PO DAILY [facility] Famotidine (Pepcid) 20 mg IVP Q12 [facility] Last Admin: 03/29/17 21:25 Dose: 20 mg Hydromorphone HCl (Dilaudid) 1 mg IVP Q4 PRN PRN Reason: Pain, severe (8-10) Last Admin: 03/30/17 04:05 Dose: 1 mg Lactated Ringer's (Lactated Ringer's) 1,000 mls @ 999 mls/hr IV .Q1H1M [facility] Stop: 03/30/17 16:01 Last Admin: 03/30/17 00:42 Dose: 999 mls/hr Lactated Ringer's (Lactated Ringer's) 1,000 mls @ 250 mls/hr IV .Q4H [facility] Last Admin: 03/30/17 01:25 Dose: 250 mls/hr Lactated Ringer's (Lactated Ringer's) 1,000 mls @ 999 mls/hr IV .Q1H1M [facility] Stop: 03/30/17 09:00 Lactated Ringer's (Lactated Ringer's) 1,000 mls @ 999 mls/hr IV .Q1H1M [facility] Potassium Chloride (Potassium Chloride 10 Meq/100 Ml) 100 mls @ 100 mls/hr IVPB Q1 [facility] Stop: 03/30/17 09:59 Ketorolac Tromethamine (Toradol) 30 mg IVP Q6 PRN PRN Reason: Pain, moderate (4-7) Last Admin: 03/29/17 13:30 Dose: 30 mg Lisinopril (Zestril) 10 mg PO DAILY [facility] Last Admin: 03/29/17 08:40 Dose: 10 mg Metoprolol Tartrate (Lopressor) 25 mg PO Q12 [facility] Last Admin: 03/29/17 21:25 Dose: 25 mg Ondansetron HCl (Zofran Inj) 4 mg IVP Q6 PRN PRN Reason: Nausea/Vomiting Last Admin: 03/27/17 15:16 Dose: 4 mg Pantoprazole Sodium (Protonix Ec Tab) 40 mg PO DAILY [facility] Last Admin: 03/29/17 08:40 Dose: 40 mg Simethicone (Mylicon Chew Tab) 40 mg PO QID PRN PRN Reason: Flatulence Last Admin: 03/30/17 04:14 Dose: 40 mg Zolpidem Tartrate (Ambien) 5 mg PO HS [facility] Last Admin: 03/29/17 21:25 Dose: 5 mg - Labs Labs: 03/30/17 05:15 03/30/17 05:15 PT 14.7 Seconds (9.8-13.1) H 03/29/17 11:30 INR 1.3 (0.9-1.2) H 03/29/17 11:30 - Constitutional Appears: Well, Non-toxic, No Acute Distress - Head Exam Head Exam: ATRAUMATIC, NORMAL INSPECTION, NORMOCEPHALIC - Eye Exam Eye Exam: EOMI, Normal appearance, PERRL Pupil Exam: NORMAL ACCOMODATION, PERRL - ENT Exam ENT Exam: Mucous Membranes Moist, Normal Exam - Neck Exam Neck Exam: Full ROM, Normal Inspection. absent: Lymphadenopathy - Respiratory Exam Respiratory Exam: Clear to Ausculation Bilateral, NORMAL BREATHING PATTERN - Cardiovascular Exam Cardiovascular Exam: REGULAR RHYTHM, RRR, +S1, +S2. absent: Murmur - GI/Abdominal Exam GI & Abdominal Exam: Soft, Normal Bowel Sounds. absent: Tenderness - Extremities Exam Extremities Exam: Full ROM, Normal Capillary Refill, Normal Inspection. absent : Joint Swelling, Pedal Edema - Back Exam Back Exam: NORMAL INSPECTION - Neurological Exam Neurological Exam: Alert, Awake, CN II-XII Intact, Normal Gait, Oriented x3 - Psychiatric Exam Psychiatric exam: Normal Affect, Normal Mood - Skin Skin Exam: Dry, Intact, Normal Color, Warm Assessment and Plan (1) DVT prophylaxis Assessment & Plan: scd jordy ehose ambulation Status: Acute (2) Pancreatitis Assessment & Plan: doing better only c/o gas cont pain and gas control nausea control cont aggressive ivf gi adv to liquid diet then bland as renetta Status: Acute (3) Hypertension Assessment & Plan: cont meds Status: Acute
[2017-03-30] MEDS: Pantoprazole 40 mg EC Tab PO SCH (09:28)
[2017-03-30] MEDS: Potassium CL 10mEq/100ml 100 ML IVPB SCH (09:29)
--- NOTE | 2017-03-30 09:35 | CP.PCM.PN ---
Subjective - Date & Time of Evaluation Date of Evaluation: 03/30/17 Time of Evaluation: 09:30 - Subjective Subjective: feels better Objective - Vital Signs/Intake and Output Vital Signs (last 24 hours): Temp Pulse Resp BP Pulse Ox 98.3 F 85 18 190/134 H 97 03/30/17 08:00 03/30/17 09:28 03/30/17 08:00 03/30/17 09:28 03/30/17 08:00 Intake and Output: 03/30/17 03/30/17 06:59 18:59 Intake Total 5250 Balance 5250 - Medications Medications: Current Medications Amlodipine Besylate (Norvasc) 10 mg PO DAILY [facility] Last Admin: 03/30/17 09:28 Dose: 10 mg Famotidine (Pepcid) 20 mg IVP Q12 [facility] Last Admin: 03/29/17 21:25 Dose: 20 mg Hydromorphone HCl (Dilaudid) 1 mg IVP Q4 PRN PRN Reason: Pain, severe (8-10) Last Admin: 03/30/17 04:05 Dose: 1 mg Lactated Ringer's (Lactated Ringer's) 1,000 mls @ 999 mls/hr IV .Q1H1M [facility] Stop: 03/30/17 16:01 Last Admin: 03/30/17 00:42 Dose: 999 mls/hr Lactated Ringer's (Lactated Ringer's) 1,000 mls @ 250 mls/hr IV .Q4H [facility] Last Admin: 03/30/17 01:25 Dose: 250 mls/hr Potassium Chloride (Potassium Chloride 10 Meq/100 Ml) 100 mls @ 100 mls/hr IVPB Q1 [facility] Stop: 03/30/17 09:59 Last Admin: 03/30/17 09:29 Dose: 100 mls/hr Ketorolac Tromethamine (Toradol) 30 mg IVP Q6 PRN PRN Reason: Pain, moderate (4-7) Last Admin: 03/29/17 13:30 Dose: 30 mg Lisinopril (Zestril) 10 mg PO DAILY [facility] Last Admin: 03/29/17 08:40 Dose: 10 mg Metoprolol Tartrate (Lopressor) 25 mg PO Q12 [facility] Last Admin: 03/30/17 09:27 Dose: 25 mg Ondansetron HCl (Zofran Inj) 4 mg IVP Q6 PRN PRN Reason: Nausea/Vomiting Last Admin: 03/27/17 15:16 Dose: 4 mg Pantoprazole Sodium (Protonix Ec Tab) 40 mg PO DAILY [facility] Last Admin: 03/30/17 09:28 Dose: 40 mg Simethicone (Mylicon Chew Tab) 40 mg PO QID PRN PRN Reason: Flatulence Last Admin: 03/30/17 04:14 Dose: 40 mg Zolpidem Tartrate (Ambien) 5 mg PO HS [facility] Last Admin: 03/29/17 21:25 Dose: 5 mg - Labs Labs: 03/30/17 05:15 03/30/17 05:15 PT 14.7 Seconds (9.8-13.1) H 03/29/17 11:30 INR 1.3 (0.9-1.2) H 03/29/17 11:30 - Head Exam Head Exam: NORMAL INSPECTION - Respiratory Exam Respiratory Exam: NORMAL BREATHING PATTERN - Cardiovascular Exam Cardiovascular Exam: REGULAR RHYTHM - GI/Abdominal Exam GI & Abdominal Exam: Soft, Normal Bowel Sounds Assessment and Plan - Assessment and Plan (Free Text) Assessment: 41 yo female with etoh pancreatitis advance diet dc planning if pain controlled
[2017-03-30 17:50] VITALS: BP 143/91; PULSE 91; RESP 14; TEMP 98.5; O2SAT 98
== END 2017-03-30 20:05 | disposition home or self-care (01) | DRG 204 ==
LOC: H.ER 02:54 → H.ERHOLD 07:47 → H.TEL 20:48 → OBSVTOIN 03-28 07:11
PROVIDERS: ADMIT Family Medicine; ATTEND Family Medicine
PROC: 02HV33Z Insertion of Infusion Device into Superior Vena Cava, Percutaneous Approach (ICD-10-PCS; principal; 2017-03-29)
DX: K85.20 Alcohol induced acute pancreatitis without necrosis or infection (principal); I10 Essential (primary) hypertension; E78.00 Pure hypercholesterolemia, unspecified; Z98.84 Bariatric surgery status; K29.70 Gastritis, unspecified, without bleeding; F41.9 Anxiety disorder, unspecified; Z87.891 Personal history of nicotine dependence; Z68.30 Body mass index [BMI] 30.0-30.9, adult

== ENCOUNTER 2017-06-05 13:10 | Emergency (ER) | payer MEDICAID ==
[2017-06-05 13:10] VITALS: BMI 31.2
[2017-06-05 13:22] VITALS: BP 164/92; PULSE 86; RESP 18; TEMP 98.2; O2SAT 99
--- NOTE | 2017-06-05 14:34 | ED PDOC ---
HPI: Chest Pain Time Seen by Provider: 06/05/17 13:57 Chief Complaint (Nursing): Chest Pain Chief Complaint (Provider): Chest Pain History Per: Patient History/Exam Limitations: no limitations Onset/Duration Of Symptoms: Days (x 2) Current Symptoms Are (Timing): Still Present Additional Complaint(s): Nina is a 41 year old female, with a past medical history of hypertension and pancreatitis, who presents to the emergency department with left sided chest associated with diarrhea since last night. Patient states pain radiates to back. Denies shortness of breath, fever, cough, abdominal pain, nausea and vomiting. PMD: Sheng Acosta Past Medical History Reviewed: Historical Data, Nursing Documentation, Vital Signs Vital Signs: Last Vital Signs Temp 98.2 F 06/05/17 13:21 Pulse 86 06/05/17 13:21 Resp 18 06/05/17 13:21 BP 164/92 H 06/05/17 13:21 Pulse Ox 99 06/05/17 15:37 - Medical History PMH: Anxiety, Asthma, Diabetes (resolved after bariatic surgery), Gastritis, HTN , Hypercholesterolemia (resolved after bariatric surgery), Pancreatitis Denies: CAD, CVA, HIV, Chronic Kidney Disease, Sleep Apnea - Surgical History Surgical History: - Family History Family History: States: [place], CAD, Diabetes, Hypertension Denies: Stroke - Social History Drugs: Denies - Immunization History Hx Tetanus Toxoid Vaccination: No Hx Influenza Vaccination: No Hx Pneumococcal Vaccination: Yes (prior to sx) - Home Medications Home Medications: Ambulatory Orders Medication Instructions Recorded Dexlansoprazole [Dexilant] 60 mg PO DAILY 01/11/17 Lisinopril [Zestril] 10 mg PO DAILY 01/11/17 Famotidine [Pepcid] 20 mg PO BID #28 tab 03/26/17 Zolpidem [Ambien] 10 mg PO HS 03/27/17 Metoprolol Tartrate [Lopressor] 25 mg PO Q12 #60 tab 03/30/17 Simethicone [Mylicon Chew Tab] 40 mg PO QID PRN #30 chew 03/30/17 amLODIPine [Norvasc] 10 mg PO DAILY #30 tab 03/30/17 oxyCODONE/Acetaminophen [Percocet 1 ea PO Q6 PRN #5 tab 03/30/17 5/325 mg Tab] Naproxen [Naprosyn] 500 mg PO Q12H #20 tab 06/05/17 - Allergies Allergies/Adverse Reactions: Allergies Allergy/AdvReac Type Severity Reaction Status Date / Time No Known Allergies Allergy Verified 06/05/17 13:18 Review of Systems ROS Statement: Except As Marked, All Systems Reviewed And Found Negative Constitutional: Negative for: Fever Cardiovascular: Positive for: Chest Pain (Left-sided) Respiratory: Negative for: Cough, Shortness of Breath Gastrointestinal: Positive for: Diarrhea. Negative for: Nausea, Vomiting, Abdominal Pain Musculoskeletal: Positive for: Back Pain Physical Exam - Reviewed Nursing Documentation Reviewed: Yes Vital Signs Reviewed: Yes - Physical Exam Appears: Positive for: Non-toxic Skin: Positive for: Normal Color Cardiovascular/Chest: Positive for: Regular Rate, Rhythm Respiratory: Positive for: Normal Breath Sounds (Lungs clear to auscultation bilaterally) Gastrointestinal/Abdominal: Positive for: Soft. Negative for: Tenderness Extremity: Negative for: Calf Tenderness, Swelling Neurologic/Psych: Positive for: Alert - Laboratory Results Result Diagrams: 06/05/17 15:17 06/05/17 15:17 Urine POC: Negative - ECG O2 Sat by Pulse Oximetry: 99 (RA) Pulse Ox Interpretation: Normal Medical Decision Making Medical Decision Making: Time: 14:16 Initial Plan: - EKG - CMP - Lipase - Troponin I - CBC - Chest X-Ray - Toradol 30 mg IVP Time: 15:30 Chest X-Ray FINDINGS: LUNGS: No active pulmonary disease. PLEURA: No significant pleural effusion identified. No pneumothorax apparent. CARDIOVASCULAR: Normal. OSSEOUS STRUCTURES: No significant abnormalities. VISUALIZED UPPER ABDOMEN: Normal. OTHER FINDINGS: None. IMPRESSION: No active disease. No significant interval change compared to the prior examination(s). Scribe Attestation: Documented by Justin Bell, acting as a scribe for Jcarlos uGillory MD Provider Scribe Attestation: All medical record entries made by the Scribe were at my direction and personally dictated by me. I have reviewed the chart and agree that the record accurately reflects my personal performance of the history, physical exam, medical decision making, and the department course for this patient. I have also personally directed, reviewed, and agree with the discharge instructions and disposition. Disposition - Clinical Impression Clinical Impression: Back pain - Patient ED Disposition Is Patient to be Admitted: No Counseled Patient/Family Regarding: Studies Performed, Diagnosis, Need For Followup, Rx Given - Disposition Referrals: [facility] [Outside] Disposition: Routine/Home Disposition Time: 16:21 Condition: FAIR Prescriptions: Naproxen [Naprosyn] 500 mg PO Q12H #20 tab Instructions: Back Pain (ED) Forms: [facility] (Taiwanese)
[2017-06-05 15:23] LABS: BASO % 0.4 % (0.0-2.0); EOS # 0.2 K/uL (0.0-0.7); EOS % 2.6 % (0.0-4.0); HEMATOCRIT 38.5 % (34.0-47.0); LYMPH # 1.7 K/uL (1.0-4.3); LYMPH % 27.7 % (20.0-40.0); MEAN CELL VOLUME 93.1 fl (81.0-99.0); MEAN CORPUSCULAR HGB CONC 34.4 g/dL (33.0-37.0); MEAN PLATELET VOLUME 7.3 fl (7.2-11.7); MONO # 0.5 K/uL (0.0-0.8); MONO % 7.9 % (0.0-10.0); NEUT # 3.7 K/uL (1.8-7.0); NEUT % 61.4 % (50.0-75.0); NRBC % 0.1 % (0.0-0.0); RED CELL DISTRIBUTION WIDTH 14.1 % (11.5-14.5)
--- NOTE | 2017-06-05 15:31 | RAD ---
HISTORY: Chest pain, diarrhea COMPARISON: 10/16/2014 TECHNIQUE: Chest PA and lateral FINDINGS: LUNGS: No active pulmonary disease. PLEURA: No significant pleural effusion identified. No pneumothorax apparent. CARDIOVASCULAR: Normal. OSSEOUS STRUCTURES: No significant abnormalities. VISUALIZED UPPER ABDOMEN: Normal. OTHER FINDINGS: None. IMPRESSION: No active disease. No significant interval change compared to the prior examination(s).
[2017-06-05 15:44] LABS: ALB/GLOB RATIO 1.3 (1.0-2.1); ALKALINE PHOSPHATASE 73 U/L (38-126); ALT/SGPT 37 U/L (9-52); AST/SGOT 46 U/L (14-36); BLOOD UREA NITROGEN 8 mg/dl (7-17); CALCIUM 9.6 mg/dL (8.4-10.2); CARBON DIOXIDE 25 mmol/L (22-30); CHLORIDE 105 mmol/L (98-107); GFR AFRICAN-AMERICAN > 60; GLUCOSE,RANDOM 95 mg/dL (65-105); LIPASE 67 U/L (23-300); POTASSIUM 4.6 MMOL/L (3.6-5.0); SODIUM 138 mmol/l (132-148); TOTAL PROTEIN 7.3 G/DL (6.3-8.2)
--- NOTE | 2017-06-07 11:54 | CARD ---
APPROVED REPORT EKG Measurement Heart [id number] <Conclusion> Normal sinus rhythm Possible Left atrial enlargement Borderline ECG
== END 2017-06-05 16:30 | disposition home or self-care (01) ==
LOC: H.ER 13:10
DX: M54.9 Dorsalgia, unspecified (principal); E11.9 Type 2 diabetes mellitus without complications; I10 Essential (primary) hypertension; J45.909 Unspecified asthma, uncomplicated; K85.90 Acute pancreatitis without necrosis or infection, unspecified; Z82.49 Family history of ischemic heart disease and other diseases of the circulatory system
CPT/HCPCS: 71020; 80053; 81025; 83690; 84484; 85025; 96374; 99282; J1885

== ENCOUNTER 2017-06-28 12:58 | Inpatient (IN) | payer MEDICAID ==
[2017-06-28 12:58] VITALS: BMI 31.2
--- NOTE | 2017-06-28 13:55 | ED PDOC ---
HPI: Abdomen <KwakuJcarlos spear - Last Filed: 06/28/17 16:09> Chief Complaint (Provider): Severe Epigastric Pain History Per: Patient, Family History/Exam Limitations: no limitations Onset/Duration Of Symptoms: Hrs Outside of [place] travel?: No Current Symptoms Are (Timing): Still Present Severity: Severe Pain Scale Rating Of: 9 Location Of Pain/Discomfort: Epigastric Quality Of Discomfort: Sharp Associated Symptoms: Nausea, Vomiting, Diarrhea, Loss Of Appetite. denies: Fever, Chest Pain Exacerbating Factors: None Alleviating Factors: None Last Bowel Movement: Today Additional History Per: Patient, Family <Ashley Lius - Last Filed: 06/28/17 18:30> Time Seen by Provider: 06/28/17 13:26 Chief Complaint (Nursing): GI Problem Additional Complaint(s): This is 41 y/o female with PMH of Pancreatitis , HTN, Peptic ulcer, depression and gastric bypass comes to the ED c/o one day history of severe epigastric pain , nausea, NBNB vomiting and NB watery diarrhea. As per patient, pain is 10/10 severity, constant, localized, sharp and associated with loss of appetite. No alleviating or aggravating factors. Patient admits same symptoms when she was diagnosed with pancreatitis. Denies any chest pain, SOB, or urinary symptoms. (Ashley Luis) Past Medical History <Jcarlos Guillory F - Last Filed: 06/28/17 16:09> - Medical History PMH: Anxiety, Asthma, Diabetes (resolved after bariatic surgery), Gastritis, HTN , Hypercholesterolemia (resolved after bariatric surgery), Pancreatitis Denies: CAD, CVA, HIV, Chronic Kidney Disease, Sleep Apnea - Surgical History Surgical History: Other surgeries: Gastric bypass - Family History Family History: States: [place], CAD, Diabetes, Hypertension Denies: Stroke - Living Arrangements Living Arrangements: With Family - Social History Current smoker - smoking cessation education provided: No Ex-Smoker (has not smoked in the last 12 months): No Alcohol: Social Drugs: Denies - Immunization History Hx Tetanus Toxoid Vaccination: No Hx Influenza Vaccination: No Hx Pneumococcal Vaccination: Yes (prior to sx) <Ashley Luis - Last Filed: 06/28/17 18:30> Vital Signs: Last Vital Signs Temp 98.2 F 06/28/17 13:21 Pulse 100 H 01/10/18 17:51 Resp 20 06/28/17 16:30 BP 185/129 H 06/28/17 17:51 Pulse Ox 97 06/28/17 18:28 - Home Medications Home Medications: Ambulatory Orders Medication Instructions Recorded Dexlansoprazole [Dexilant] 60 mg PO DAILY 01/11/17 Lisinopril [Zestril] 10 mg PO DAILY 01/11/17 Famotidine [Pepcid] 20 mg PO BID #28 tab 03/26/17 Zolpidem [Ambien] 10 mg PO HS 03/27/17 Metoprolol Tartrate [Lopressor] 25 mg PO Q12 #60 tab 03/30/17 Simethicone [Mylicon Chew Tab] 40 mg PO QID PRN #30 chew 03/30/17 amLODIPine [Norvasc] 10 mg PO DAILY #30 tab 03/30/17 oxyCODONE/Acetaminophen [Percocet 1 ea PO Q6 PRN #5 tab 03/30/17 5/325 mg Tab] Naproxen [Naprosyn] 500 mg PO Q12H #20 tab 06/05/17 - Allergies Allergies/Adverse Reactions: Allergies Allergy/AdvReac Type Severity Reaction Status Date / Time No Known Allergies Allergy Verified 06/28/17 13:21 Review of Systems Constitutional: Negative for: Fever, Weakness, Weight loss Eyes: Negative for: Vision Change ENT: Negative for: Ear Pain, Nose Pain Cardiovascular: Negative for: Chest Pain, Palpitations, Orthopnea, Paroxysmal Noc. Dyspnea Respiratory: Negative for: Cough, Shortness of Breath, Hemoptysis Gastrointestinal: Positive for: Nausea, Vomiting, Abdominal Pain, Diarrhea. Negative for: Melena Genitourinary Female: Negative for: Dysuria, Frequency, Incontinence Musculoskeletal: Negative for: Neck Pain, Shoulder Pain Skin: Negative for: Rash Neurological: Positive for: Weakness. Negative for: Numbness, Confusion Psych: Positive for: Depression <Ashley Luis - Last Filed: 06/28/17 18:30> Physical Exam - Reviewed Nursing Documentation Reviewed: Yes Vital Signs Reviewed: Yes - Physical Exam Appears: Positive for: In Acute Distress (due to pain ) Head Exam: Positive for: ATRAUMATIC, NORMAL INSPECTION, NORMOCEPHALIC Skin: Positive for: Normal Color, Warm, Dry Eye Exam: Positive for: Normal appearance ENT: Positive for: Normal ENT Inspection Neck: Positive for: Normal Cardiovascular/Chest: Positive for: Regular Rate, Rhythm, Chest Non Tender Respiratory: Positive for: Normal Breath Sounds Gastrointestinal/Abdominal: Positive for: Soft, Tenderness (Mainly epigastric ) . Negative for: Distended, Guarding, Rebound, Hernia, Asicites Back: Positive for: Normal Inspection Neurologic/Psych: Positive for: Alert, Oriented. Negative for: Motor/Sensory Deficits <Ashley Luis - Last Filed: 06/28/17 18:30> - Laboratory Results Result Diagrams: 06/28/17 14:30 06/28/17 14:30 <Jcarlos Guillory - Last Filed: 06/28/17 16:09> - Laboratory Results Result Diagrams: 06/28/17 14:30 06/28/17 16:31 - ECG O2 Sat by Pulse Oximetry: 97 - Progress Re-evaluation Time: 15:28 Condition: Unchanged <Ashley Luis - Last Filed: 06/28/17 18:30> - Progress ED Course And Treament: This is 41 y/o female with PMH of pancreatitis, peptic ulcer, HTN and gastric bypass comes to ED for severe epigastric pain, possible pancreatitis. - NPO - IVF- LR - CBC, CMP, Lipase, Lipid panel - Morphine 4mg IV for pain - Pepcid 20mg IV - Zofran 4mg IV for nausea - Re-evaluation Case discussed with Dr. Guillory Blood Pressure repeated 178/111 - Labetolol 20mg IV ordered 14:55- Patient, no improvement Labs: Sodium 95 Error Lipase 1740 17:22: Patient feels better, denies pain but still weak BP 160 systolic Catapres 0.1 PO ordered Admitting patient for further evaluation and treatment Service called and made aware 18:00- 30 mins after BP medication , still BP 170/118 Vasotec 2.5 IV ordered (Ashley Luis) Medical Decision Making <Jcarlos Guillory - Last Filed: 06/28/17 16:09> <Ashley Luis - Last Filed: 06/28/17 18:30> Medical Decision Making: Differentials include; Pancreatitis, peptic ulcer, gallbladder or SBO (Ashley Luis) Disposition <Jcarlos Guillory - Last Filed: 06/28/17 16:09> - Patient ED Disposition Is Patient to be Admitted: Yes - Disposition Disposition Time: 18:29 <Ashley Luis - Last Filed: 06/28/17 18:30> - Clinical Impression Clinical Impression: Peptic ulcer, Abdominal pain, Pancreatitis, Gall bladder disease - Disposition Condition: FAIR
[2017-06-28] MEDS ORDERED: Lactated Ringer's 1,000 ML IV SCH (14:00)
[2017-06-28] MEDS ORDERED: Morphine 4 MG/ML VIAL ONE (14:04)
[2017-06-28] MEDS ORDERED: Morphine 4 MG/ML VIAL IVP ONE ×2 (14:24→14:41)
[2017-06-28] MEDS ORDERED: Labetalol 5 mg/ml Inj 20ML IVP STA (14:52)
[2017-06-28 14:58] LABS: BASO % 0.4 % (0.0-2.0); EOS # 0.1 K/uL (0.0-0.7); EOS % 1.1 % (0.0-4.0); HEMOGLOBIN 14.8 g/dL (12.0-16.0); LYMPH # 1.4 K/uL (1.0-4.3); LYMPH % 17.8 % (20.0-40.0); MEAN CELL VOLUME 95.3 fl (81.0-99.0); MEAN CORPUSCULAR HEMOGLOBIN 31.7 pg (27.0-31.0); MEAN CORPUSCULAR HGB CONC 33.2 g/dL (33.0-37.0); MEAN PLATELET VOLUME 7.4 fl (7.2-11.7); MONO # 0.4 K/uL (0.0-0.8); MONO % 5.4 % (0.0-10.0); NEUT # 6.1 K/uL (1.8-7.0); NEUT % 75.3 % (50.0-75.0); NRBC % 0.2 % (0.0-0.0); RBC 4.66 Mil/uL (3.80-5.20); RED CELL DISTRIBUTION WIDTH 14.1 % (11.5-14.5); WHITE BLOOD COUNT 8.1 K/uL (4.8-10.8)
[2017-06-28] MEDS ORDERED: Labetalol 5mg/ml (4ml) IVP STA (15:43)
[2017-06-28] MEDS ORDERED: HYDROmorphone 0.5 mg/0.5 ml ISec ONE ×2 (16:06→20:10)
[2017-06-28] MEDS ORDERED: HYDROmorphone 0.5 mg/0.5 ml ISec IVP STA ×2 (16:12→16:13)
[2017-06-28 16:32] LABS: BLOOD UREA NITROGEN 5 mg/dl (7-17); GFR AFRICAN-AMERICAN > 60; GFR NON-AFRICAN AMERICAN > 60
[2017-06-28 16:33] LABS: ALB/GLOB RATIO 1.2 (1.0-2.1); ALBUMIN 4.1 g/dL (3.5-5.0); ALT/SGPT 27 U/L (9-52); AST/SGOT 37 U/L (14-36); CALCIUM 9.3 mg/dL (8.4-10.2)
[2017-06-28 16:35] LABS: HDL CHOLESTEROL 58 MG/DL (30-70); LDL CHOLESTEROL 70 mg/dL (0-129); LIPASE 1724 U/L (23-300)
[2017-06-28] MEDS ORDERED: EnalaprilAT 1.25 mg/ml Inj IVP ONE (18:16)
[2017-06-28] MEDS ORDERED: Simethicone 80 mg Chewtab PO PRN (19:15)
[2017-06-28] MEDS ORDERED: EnalaprilAT 1.25 mg/ml Inj ONE (20:10)
[2017-06-28] MEDS: HYDROmorphone 0.5 mg/0.5 ml ISec IVP PRN (20:11)
[2017-06-28] MEDS: Lactated Ringer's 1,000 ML IV SCH (22:31)
[2017-06-29] MEDS: HYDROmorphone 0.5 mg/0.5 ml ISec IVP PRN ×5 (05:11→23:48)
[2017-06-29 06:18] LABS: BASO % 0.3 % (0.0-2.0); EOS % 0.2 % (0.0-4.0); HEMOGLOBIN 14.4 g/dL (12.0-16.0); LYMPH # 0.9 K/uL (1.0-4.3); LYMPH % 8.5 % (20.0-40.0); MEAN CELL VOLUME 95.8 fl (81.0-99.0); MEAN CORPUSCULAR HEMOGLOBIN 31.5 pg (27.0-31.0); MEAN CORPUSCULAR HGB CONC 32.9 g/dL (33.0-37.0); MEAN PLATELET VOLUME 7.8 fl (7.2-11.7); MONO # 0.6 K/uL (0.0-0.8); MONO % 5.7 % (0.0-10.0); NEUT # 9.1 K/uL (1.8-7.0); NEUT % 85.3 % (50.0-75.0); NRBC % 0.1 % (0.0-0.0); PLATELET COUNT 248 K/uL (130-400); RBC 4.56 Mil/uL (3.80-5.20); RED CELL DISTRIBUTION WIDTH 13.9 % (11.5-14.5); WHITE BLOOD COUNT 10.6 K/uL (4.8-10.8)
[2017-06-29 06:32] LABS: ALB/GLOB RATIO 1.1 (1.0-2.1); ALBUMIN 3.8 g/dL (3.5-5.0); ALT/SGPT 29 U/L (9-52); AST/SGOT 29 U/L (14-36); BLOOD UREA NITROGEN 6 mg/dl (7-17); CALCIUM 9.4 mg/dL (8.4-10.2); GFR AFRICAN-AMERICAN > 60; GFR NON-AFRICAN AMERICAN > 60; LIPASE 1264 U/L (23-300)
--- NOTE | 2017-06-29 07:24 | CP.PCM.HP ---
History of Present Illness - History of Present Illness History of Present Illness: pt admitted for acute on chronic pancreatitis. no f/c, n/v/d at [facility]. had n/ v pilot captain. 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 pt states last etoh 06/17/17. bw noted. lipase trending down. pt asking for liquids. imaging noted Present on Admission - Present on Admission Any Indicators Present on Admission: No Review of Systems - Gastrointestinal Gastrointestinal: As Per HPI, Abdominal Pain, Nausea, Vomiting Past Patient History - Infectious Disease Hx of Infectious Diseases: None - Past Medical History & Family History Past Medical History?: Yes - Past Social History Smoking Status: Former Smoker - CARDIAC Hx Hypercholesterolemia: Yes (resolved after bariatric surgery) Hx Hypertension: Yes - PULMONARY Hx Asthma: Yes Hx Sleep Apnea: No - NEUROLOGICAL Hx Neurological Disorder: No - HEENT Hx HEENT Problems: No - RENAL Hx Chronic Kidney Disease: No - ENDOCRINE/METABOLIC Hx Endocrine Disorders: No - HEMATOLOGICAL/ONCOLOGICAL Hx AIDS: No Hx Human Immunodeficiency Virus (HIV): No - INTEGUMENTARY Hx Dermatological Problems: No - MUSCULOSKELETAL/RHEUMATOLOGICAL Hx Musculoskeletal Disorders: No Hx Falls: No - GASTROINTESTINAL Hx Gastritis: Yes Hx Pancreatitis: Yes Hx Ulcer: Yes Hx Vomiting: Yes - GENITOURINARY/GYNECOLOGICAL Hx Genitourinary Disorders: No - PSYCHIATRIC Hx Anxiety: Yes Hx Depression: Yes Hx Substance Use: No - SURGICAL HISTORY Hx Surgeries: Yes Hx Section: Yes Hx Gastric Bypass Surgery: Yes - ANESTHESIA Hx Anesthesia: Yes Hx Anesthesia Reactions: No Hx Malignant Hyperthermia: No Has any member of the family had a problem w/ anesthesia?: No Meds Allergies/Adverse Reactions: Allergies Allergy/AdvReac Type Severity Reaction Status Date / Time No Known Allergies Allergy Verified 06/28/17 13:21 Physical Exam - Constitutional Appears: Well, Non-toxic, No Acute Distress - Head Exam Head Exam: ATRAUMATIC, NORMAL INSPECTION, NORMOCEPHALIC - Eye Exam Eye Exam: EOMI, Normal appearance, PERRL Pupil Exam: NORMAL ACCOMODATION, PERRL - ENT Exam ENT Exam: Mucous Membranes Moist, Normal Exam - Neck Exam Neck exam: Positive for: Normal Inspection - Respiratory Exam Respiratory Exam: Clear to Auscultation Bilateral, NORMAL BREATHING PATTERN - Cardiovascular Exam Cardiovascular Exam: REGULAR RHYTHM, RRR, +S1, +S2 - GI/Abdominal Exam GI & Abdominal Exam: Normal Bowel Sounds, Soft. absent: Tenderness - Extremities Exam Extremities exam: Positive for: full ROM, normal capillary refill, normal inspection, pedal pulses present - Back Exam Back exam: NORMAL INSPECTION - Neurological Exam Neurological exam: Alert, CN II-XII Intact, Normal Gait, Oriented x3, Reflexes Normal - Psychiatric Exam Psychiatric exam: Normal Affect, Normal Mood - Skin Skin Exam: Dry, Intact, Normal Color, Warm Results - Vital Signs Recent Vital Signs: Last Vital Signs Temp 98.5 F 06/29/17 05:23 Pulse 95 H 06/29/17 05:23 Resp 18 06/29/17 05:23 BP 123/86 06/29/17 05:23 Pulse Ox 94 L 06/29/17 05:23 - Labs Result Diagrams: 06/29/17 05:00 06/29/17 05:00 Labs: Laboratory Results - last 24 hr 06/28/17 06/28/17 06/28/17 14:30 14:30 15:40 WBC 8.1 RBC 4.66 Hgb 14.8 Hct 44.4 MCV 95.3 D MCH 31.7 H MCHC 33.2 RDW 14.1 Plt Count 243 MPV 7.4 Neut % (Auto) 75.3 H Lymph % (Auto) 17.8 L [place] % (Auto) 5.4 Eos % (Auto) 1.1 Baso % (Auto) 0.4 Neut # 6.1 Lymph # 1.4 [place] # 0.4 Eos # 0.1 Baso # 0.0 Sodium Cancelled 141 Potassium Cancelled Chloride Cancelled Carbon Dioxide Cancelled Anion Gap Cancelled BUN Cancelled Creatinine Cancelled Est GFR ( Amer) Cancelled Est GFR (Non-Af Amer) Cancelled Random Glucose Cancelled Calcium Cancelled Total Bilirubin Cancelled AST Cancelled ALT Cancelled Alkaline Phosphatase Cancelled Troponin I Total Protein Cancelled Albumin Cancelled Globulin Cancelled Albumin/Globulin Ratio Cancelled Triglycerides Cancelled Cholesterol Cancelled LDL Cholesterol Direct Cancelled HDL Cholesterol Cancelled Lipase Cancelled Alcohol, Quantitative 06/28/17 06/28/17 06/28/17 16:31 17:35 19:44 WBC RBC Hgb Hct MCV MCH MCHC RDW Plt Count MPV Neut % (Auto) Lymph % (Auto) [place] % (Auto) Eos % (Auto) Baso % (Auto) Neut # Lymph # [place] # Eos # Baso # Sodium 142 Potassium 3.8 Chloride 106 Carbon Dioxide 25 Anion Gap 15 BUN 5 L Creatinine 0.7 Est GFR ( Amer) > 60 Est GFR (Non-Af Amer) > 60 Random Glucose 145 H Calcium 9.3 Total Bilirubin 0.4 AST 37 H ALT 27 Alkaline Phosphatase 97 Troponin I < 0.0120 Total Protein 7.5 Albumin 4.1 Globulin 3.4 Albumin/Globulin Ratio 1.2 Triglycerides 144 D Cholesterol 152 LDL Cholesterol Direct 70 HDL Cholesterol 58 Lipase 1724 H Alcohol, Quantitative < 10 06/29/17 06/29/17 05:00 05:00 WBC 10.6 RBC 4.56 Hgb 14.4 Hct 43.7 MCV 95.8 MCH 31.5 H MCHC 32.9 L RDW 13.9 Plt Count 248 MPV 7.8 Neut % (Auto) 85.3 H Lymph % (Auto) 8.5 L [place] % (Auto) 5.7 Eos % (Auto) 0.2 Baso % (Auto) 0.3 Neut # 9.1 H Lymph # 0.9 L [place] # 0.6 Eos # 0.0 Baso # 0.0 Sodium 139 Potassium 3.7 Chloride 98 Carbon Dioxide 29 Anion Gap 16 BUN 6 L Creatinine 0.6 L Est GFR ( Amer) > 60 Est GFR (Non-Af Amer) > 60 Random Glucose 127 H Calcium 9.4 Total Bilirubin 0.9 AST 29 ALT 29 Alkaline Phosphatase 94 Troponin I Total Protein 7.2 Albumin 3.8 Globulin 3.3 Albumin/Globulin Ratio 1.1 Triglycerides Cholesterol LDL Cholesterol Direct HDL Cholesterol Lipase 1264 H Alcohol, Quantitative Assessment & Plan (1) Pancreatitis Assessment and Plan: pain control nausea control gi start clears adv as renetta trend lipase, lf ivf Status: Acute (2) DVT prophylaxis Assessment and Plan: scde and ae hose ambulation Status: Acute (3) Hypertension Assessment and Plan: cont home meds Status: Acute Decision To Admit - Pt Status Changed To: Hospital Disposition Of: Inpatient - Admit Certification Admit to Inpatient:: After my assessment, the patient will require hospitalization for at least two midnights. This is because of the severity of symptoms shown, intensity of services needed, and/or the medical risk in this patient being treated as an outpatient. - . Bed Request Type: Telemetry Admitting Physician: Darryn Oneill
--- NOTE | 2017-06-29 08:26 | CARD ---
APPROVED REPORT EKG Measurement Heart [id number] <Conclusion> Normal sinus rhythm Nonspecific T wave abnormality Prolonged QT Abnormal ECG
[2017-06-29 09:46] LABS: LYMPHOCYTE 12 % (20-50); MONOCYTE 3 % (0-10); NEUTROPHIL 85 % (42-75); TOTAL CELLS COUNTED 100
[2017-06-29 09:47] LABS: PLATELET ESTIMATE NORMAL (NORMAL)
[2017-06-29] MEDS ORDERED: Simethicone 40 mg/0.6 ml Liquid (30 ml) PO PRN (10:00)
--- NOTE | 2017-06-29 11:28 | RAD ---
HISTORY: nausea vomiting COMPARISON: Abdominal radiographs dated 08/21/2015 FINDINGS: BOWEL: Normal. No obstruction. No free air. BONES: Normal. OTHER FINDINGS: Pelvis soft tissue heterogeneity related to previously seen multifocal gluteal region injection granulomas. IMPRESSION: No active disease.
[2017-06-29] MEDS: Lactated Ringer's 1,000 ML IV SCH ×3 (18:14→20:50)
[2017-06-30] MEDS ORDERED: Morphine 4 MG/ML VIAL IM STA (04:09)
[2017-06-30 06:24] LABS: BASO % 0.4 % (0.0-2.0); EOS # 0.1 K/uL (0.0-0.7); HEMOGLOBIN 12.2 g/dL (12.0-16.0); LYMPH # 1.1 K/uL (1.0-4.3); LYMPH % 9.5 % (20.0-40.0); MEAN CORPUSCULAR HEMOGLOBIN 31.5 pg (27.0-31.0); MEAN CORPUSCULAR HGB CONC 32.9 g/dL (33.0-37.0); MEAN PLATELET VOLUME 7.7 fl (7.2-11.7); MONO # 0.7 K/uL (0.0-0.8); NEUT # 9.2 K/uL (1.8-7.0); NEUT % 83.1 % (50.0-75.0); RBC 3.86 Mil/uL (3.80-5.20); RED CELL DISTRIBUTION WIDTH 13.2 % (11.5-14.5); WHITE BLOOD COUNT 11.1 K/uL (4.8-10.8)
[2017-06-30 07:11] LABS: ALBUMIN 3.3 g/dL (3.5-5.0); ALT/SGPT 25 U/L (9-52); AST/SGOT 22 U/L (14-36); BLOOD UREA NITROGEN 5 mg/dl (7-17); GFR AFRICAN-AMERICAN > 60; GFR NON-AFRICAN AMERICAN > 60; LIPASE 532 U/L (23-300)
[2017-06-30] MEDS: Lactated Ringer's 1,000 ML IV SCH ×2 (07:39→10:10)
[2017-06-30] MEDS: HYDROmorphone 0.5 mg/0.5 ml ISec IVP PRN ×2 (07:39→12:20)
[2017-06-30] MEDS ORDERED: Potassium Chloride 20 mEq ER Tab PO ONE (08:23)
--- NOTE | 2017-06-30 09:07 | CP.PCM.PN ---
Subjective - Date & Time of Evaluation Date of Evaluation: 06/30/17 Time of Evaluation: 09:06 - Subjective Subjective: pt in much less pain no f/c, n/v/d. bw noted. lipase trending down. cleared to adv to bland solids as per gi. for possible dc if renetta po. Objective - Vital Signs/Intake and Output Vital Signs (last 24 hours): Temp Pulse Resp BP Pulse Ox 99.2 F 103 H 20 150/100 H 99 06/30/17 08:15 06/30/17 08:46 06/30/17 08:15 06/30/17 08:46 06/30/17 08:15 - Medications Medications: Current Medications Famotidine (Pepcid) 20 mg PO BID [facility] Last Admin: 06/30/17 08:46 Dose: 20 mg Hydromorphone HCl (Dilaudid) 1 mg IVP Q4 PRN PRN Reason: Pain, severe (8-10) Last Admin: 06/30/17 07:39 Dose: 1 mg Lactated Ringer's (Lactated Ringer's) 1,000 mls @ 150 mls/hr IV .Q6H40M [facility] [place] Last Admin: 06/30/17 07:39 Dose: Not Given Ketorolac Tromethamine (Toradol) 30 mg IVP Q6 PRN PRN Reason: Pain, Mild (1-3) Metoprolol Tartrate (Lopressor) 25 mg PO Q12 [facility] Last Admin: 06/30/17 08:46 Dose: 25 mg Morphine Sulfate (Morphine) 4 mg IVP Q4 PRN PRN Reason: Pain, moderate (4-7) Last Admin: 06/28/17 23:32 Dose: 4 mg Ondansetron HCl (Zofran Inj) 4 mg IVP Q6 PRN PRN Reason: Nausea/Vomiting Simethicone (Mylicon Liq) 40 mg PO QID PRN PRN Reason: Flatulence Zolpidem Tartrate (Ambien) 5 mg PO HS [facility] Last Admin: 06/29/17 21:44 Dose: 5 mg - Labs Labs: 06/30/17 05:30 06/30/17 05:30 - Constitutional Appears: Well, Non-toxic, No Acute Distress - Head Exam Head Exam: ATRAUMATIC, NORMAL INSPECTION, NORMOCEPHALIC - Eye Exam Eye Exam: EOMI, Normal appearance, PERRL Pupil Exam: NORMAL ACCOMODATION, PERRL - ENT Exam ENT Exam: Mucous Membranes Moist, Normal Exam - Neck Exam Neck Exam: Full ROM, Normal Inspection. absent: Lymphadenopathy - Respiratory Exam Respiratory Exam: Clear to Ausculation Bilateral, NORMAL BREATHING PATTERN - Cardiovascular Exam Cardiovascular Exam: REGULAR RHYTHM, RRR, +S1, +S2. absent: Murmur - GI/Abdominal Exam GI & Abdominal Exam: Soft, Tenderness, Normal Bowel Sounds Additional comments: ruq/epigastirc tendernes, less than yesterday - Extremities Exam Extremities Exam: Full ROM, Normal Capillary Refill, Normal Inspection. absent : Joint Swelling, Pedal Edema - Back Exam Back Exam: NORMAL INSPECTION - Neurological Exam Neurological Exam: Alert, Awake, CN II-XII Intact, Normal Gait, Oriented x3 - Psychiatric Exam Psychiatric exam: Normal Affect, Normal Mood - Skin Skin Exam: Dry, Intact, Normal Color, Warm Assessment and Plan (1) Pancreatitis Status: Acute (2) DVT prophylaxis Status: Acute (3) Hypertension Status: Acute - Assessment and Plan (Free Text) Assessment: (1) Pancreatitis Assessment and Plan: pain control nausea control gi bland trend lipase, lr ivf Status: Acute (2) DVT prophylaxis Assessment and Plan: scde and ae hose ambulation Status: Acute (3) Hypertension Assessment and Plan: cont home meds Status: Acute
--- NOTE | 2017-06-30 09:58 | CP.PCM.PN ---
Subjective - Date & Time of Evaluation Date of Evaluation: 06/30/17 Time of Evaluation: 09:57 - Subjective Subjective: tolerated regular diet Objective - Vital Signs/Intake and Output Vital Signs (last 24 hours): Temp Pulse Resp BP Pulse Ox 99.2 F 103 H 20 150/100 H 99 06/30/17 08:15 06/30/17 08:46 06/30/17 08:15 06/30/17 08:46 06/30/17 08:15 - Medications Medications: Current Medications Famotidine (Pepcid) 20 mg PO BID [facility] Last Admin: 06/30/17 08:46 Dose: 20 mg Hydromorphone HCl (Dilaudid) 1 mg IVP Q4 PRN PRN Reason: Pain, severe (8-10) Last Admin: 06/30/17 07:39 Dose: 1 mg Lactated Ringer's (Lactated Ringer's) 1,000 mls @ 150 mls/hr IV .Q6H40M [facility] Last Admin: 06/30/17 07:39 Dose: Not Given Ketorolac Tromethamine (Toradol) 30 mg IVP Q6 PRN PRN Reason: Pain, Mild (1-3) Metoprolol Tartrate (Lopressor) 25 mg PO Q12 [facility] Last Admin: 06/30/17 08:46 Dose: 25 mg Morphine Sulfate (Morphine) 4 mg IVP Q4 PRN PRN Reason: Pain, moderate (4-7) Last Admin: 06/28/17 23:32 Dose: 4 mg Ondansetron HCl (Zofran Inj) 4 mg IVP Q6 PRN PRN Reason: Nausea/Vomiting Simethicone (Mylicon Liq) 40 mg PO QID PRN PRN Reason: Flatulence Zolpidem Tartrate (Ambien) 5 mg PO HS [facility] Last Admin: 06/29/17 21:44 Dose: 5 mg - Labs Labs: 06/30/17 05:30 06/30/17 05:30 - Head Exam Head Exam: NORMAL INSPECTION - Respiratory Exam Respiratory Exam: NORMAL BREATHING PATTERN - GI/Abdominal Exam GI & Abdominal Exam: Soft, Normal Bowel Sounds Assessment and Plan - Assessment and Plan (Free Text) Assessment: 41 yo female with pancreatitis doing well dc planning ct in 8 weeks
[2017-06-30 13:29] VITALS: BP 122/80; PULSE 97; RESP 16; TEMP 98.5; O2SAT 95
--- NOTE | 2017-06-30 14:21 | CP.PCM.DIS ---
Provider - Provider Date of Admission: 06/28/17 16:09 Attending physician: Darryn Oneill MD Time Spent in preparation of Discharge (in minutes): 15 Diagnosis - Discharge Diagnosis (1) Pancreatitis Status: Acute (2) DVT prophylaxis Status: Acute (3) Hypertension Status: Acute Hospital Course - Lab Results Lab Results: Most Recent Lab Values WBC 11.1 K/uL (4.8-10.8) H 06/30/17 05:30 RBC 3.86 Mil/uL (3.80-5.20) 06/30/17 05:30 Hgb 12.2 g/dL (12.0-16.0) D 06/30/17 05:30 Hct 37.1 % (34.0-47.0) 06/30/17 05:30 MCV 96.0 fl (81.0-99.0) 06/30/17 05:30 MCH 31.5 pg (27.0-31.0) H 06/30/17 05:30 MCHC 32.9 g/dL (33.0-37.0) L 06/30/17 05:30 RDW 13.2 % (11.5-14.5) 06/30/17 05:30 Plt Count 183 K/uL (130-400) 06/30/17 05:30 MPV 7.7 fl (7.2-11.7) 06/30/17 05:30 Neut % (Auto) 83.1 % (50.0-75.0) H 06/30/17 05:30 Lymph % (Auto) 9.5 % (20.0-40.0) L 06/30/17 05:30 [place] % (Auto) 6.0 % (0.0-10.0) 06/30/17 05:30 Eos % (Auto) 1.0 % (0.0-4.0) 06/30/17 05:30 Baso % (Auto) 0.4 % (0.0-2.0) 06/30/17 05:30 Neut # 9.2 K/uL (1.8-7.0) H 06/30/17 05:30 Lymph # 1.1 K/uL (1.0-4.3) 06/30/17 05:30 [place] # 0.7 K/uL (0.0-0.8) 06/30/17 05:30 Eos # 0.1 K/uL (0.0-0.7) 06/30/17 05:30 Baso # 0.0 K/uL (0.0-0.2) 06/30/17 05:30 Neutrophils % (Manual) 85 % (42-75) H 06/29/17 05:00 Lymphocytes % (Manual) 12 % (20-50) L 06/29/17 05:00 Monocytes % (Manual) 3 % (0-10) 06/29/17 05:00 Platelet Estimate Normal (NORMAL) 06/29/17 05:00 RBC Morphology Normal (NORMAL) 06/29/17 05:00 Sodium 136 mmol/l (132-148) 06/30/17 05:30 Potassium 3.4 MMOL/L (3.6-5.0) L 06/30/17 05:30 Chloride 95 mmol/L (98-107) L 06/30/17 05:30 Carbon Dioxide 31 mmol/L (22-30) H 06/30/17 05:30 Anion Gap 13 (10-20) 06/30/17 05:30 BUN 5 mg/dl (7-17) L 06/30/17 05:30 Creatinine 0.6 mg/dl (0.7-1.2) L 06/30/17 05:30 Est GFR ( Amer) > 60 06/30/17 05:30 Est GFR (Non-Af Amer) > 60 06/30/17 05:30 Random Glucose 99 mg/dL (65-105) 06/30/17 05:30 Calcium 9.0 mg/dL (8.4-10.2) 06/30/17 05:30 Total Bilirubin 0.8 mg/dl (0.2-1.3) 06/30/17 05:30 AST 22 U/L (14-36) 06/30/17 05:30 ALT 25 U/L (9-52) 06/30/17 05:30 Alkaline Phosphatase 75 U/L (38-126) 06/30/17 05:30 Troponin I < 0.0120 ng/mL (0.00-0.120) 06/28/17 19:44 Total Protein 6.6 G/DL (6.3-8.2) 06/30/17 05:30 Albumin 3.3 g/dL (3.5-5.0) L 06/30/17 05:30 Globulin 3.3 gm/dL (2.2-3.9) 06/30/17 05:30 Albumin/Globulin Ratio 1.0 (1.0-2.1) 06/30/17 05:30 Triglycerides 144 mg/DL (0-149) D 06/28/17 16:31 Cholesterol 152 mg/dL (0-199) 06/28/17 16:31 LDL Cholesterol Direct 70 mg/dL (0-129) 06/28/17 16:31 HDL Cholesterol 58 MG/DL (30-70) 06/28/17 16:31 Lipase 532 U/L (23-300) H 06/30/17 05:30 Alcohol, Quantitative < 10 mg/dl (0-10) 06/28/17 17:35 Discharge Exam - Head Exam Head Exam: NORMAL INSPECTION Discharge Plan - Discharge Medications Prescriptions: Ondansetron ODT [Zofran ODT] 4 mg PO Q8 PRN #10 odt PRN Reason: Nausea/Vomiting oxyCODONE/Acetaminophen [Percocet 5/325 mg Tab] 1 tab PO Q4 PRN #5 tab PRN Reason: Pain, Severe (8-10) - Follow Up Plan Condition: FAIR Disposition: HOME/ ROUTINE Instructions: Pancreatitis (DC) Additional Instructions: Follow up with in 2weeks fianl dx-pancreatitis, renetta po, cleared by gi f/u rmg and rted rpn meds per med rec Referrals: Edison De Leon MD, PhD [Staff Provider] - Sergio Santoro, DNP, [employer]ING MACHINE OPERATOR [Advanced Practice Nurse] -
--- NOTE | 2017-06-30 19:49 | CON ---
DATE: 06/29/2017 REFERRING PHYSICIAN: Dr. Santoro. REASON FOR CONSULTATION: Pancreatitis. 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 Patient has a history of abdominal pain, improved, but nausea is still there . No fevers, no chills, lying in bed comfortably, in mild abdominal distress. PAST MEDICAL HISTORY: As above. PAST SURGICAL HISTORY: As above. MEDICATIONS: Have been reviewed. REVIEW OF SYSTEMS: All other systems have been reviewed and negative apart from the HPI. PHYSICAL EXAMINATION: VITAL SIGNS: In the hospital, grossly unremarkable. GENERAL: This is a pleasant middle-aged female, lying in bed comfortably, in no apparent distress. HEENT: Head: Normocephalic, atraumatic. Eyes: Pupils equally reactive to light bilaterally. No conjunctival pallor or icterus. NECK: Supple. Normal range of motion. No lymphadenopathy appreciated. LUNGS: Coarse breath sounds bilaterally. HEART: S1, S2, regular rhythm. No murmurs appreciated. ABDOMEN: Soft, nontender. Bowel sounds present. Some discomfort in the epigastric region. No rebound, no guarding. RECTAL: Deferred. EXTREMITIES: Pulses felt bilaterally. SKIN: Warm, dry and intact. NEUROLOGIC: A and O x3. LABORATORY DATA: Labs have been reviewed. WBC is 10.6, hemoglobin is 14.5, hematocrit 40.7, platelet count is normal. Lipase is 1724, alk phos 64, LFTs are normal at this point. ASSESSMENT AND PLAN: This is a 41-year-old female with alcoholic pancreatitis. From GI standpoint, we will add PPIs. We will add H2 blockers twice a day, lactulose p.r.n., KUB pending, advance diet as tolerated, talked to the patient regarding counseling for stopping consumption of alcohol. She will follow up with me in the office for a CAT scan in 8 weeks. Thank you for the consult. Edison De Leon MD/ PhD cc: Dr. Santoro [facility] # [phone]
== END 2017-06-30 14:10 | disposition home or self-care (01) | DRG 204 ==
LOC: H.ER 12:58 → H.ERHOLD 16:09 → H.TEL 21:35 → H.MEDSURG1 06-29 20:58
PROVIDERS: ADMIT Family Medicine; ATTEND Family Medicine
DX: K85.90 Acute pancreatitis without necrosis or infection, unspecified (principal); E78.00 Pure hypercholesterolemia, unspecified; Z87.891 Personal history of nicotine dependence; Z98.84 Bariatric surgery status; K86.1 Other chronic pancreatitis; F32.9 Major depressive disorder, single episode, unspecified; F41.9 Anxiety disorder, unspecified; K29.70 Gastritis, unspecified, without bleeding; J45.909 Unspecified asthma, uncomplicated; I10 Essential (primary) hypertension; Z87.11 Personal history of peptic ulcer disease

== ENCOUNTER 2017-09-02 07:55 | Inpatient (IN) | payer MEDICAID ==
[2017-09-02 07:56] VITALS: BMI 31.2
[2017-09-02] MEDS ORDERED: Sodium Chloride 0.9% 1,000 ML IV STA (09:02)
--- NOTE | 2017-09-02 09:02 | ED PDOC ---
HPI: Abdomen Time Seen by Provider: 09/02/17 08:14 Chief Complaint (Nursing): Abdominal Pain Chief Complaint (Provider): Abdominal pain History Per: Patient History/Exam Limitations: no limitations Onset/Duration Of Symptoms: Hrs Outside of [place] travel?: No Current Symptoms Are (Timing): Still Present Location Of Pain/Discomfort: RUQ, Epigastric Quality Of Discomfort: "Pain" Associated Symptoms: Vomiting, Diarrhea Additional Complaint(s): 41yo female with history of pancreatitis, presents to ED with complaints of abdominal pain prsent since last night. Patient states she noticed the pain after she drank 2-3 glasses of wine. She reports episodes of vomiting and diarrhea since this morning and has not been able to tolerate PO intake. She denies any fever, chills, chest pain. She has not taken any medications for her pain. She has no other medical complaints. PCP: Dr. Cameron GI: Dr. De Leon Past Medical History Reviewed: Historical Data, Nursing Documentation, Vital Signs Vital Signs: Last Vital Signs Temp 98.2 F 09/04/17 08:25 Pulse 93 H 09/04/17 08:25 Resp 18 09/04/17 08:25 BP 153/98 H 09/04/17 08:25 Pulse Ox 97 09/04/17 08:25 - Medical History PMH: Anxiety, Asthma, Depression, Diabetes (resolved after bariatic surgery), Gastritis, HTN, Hypercholesterolemia (resolved after bariatric surgery), Pancreatitis Denies: CAD, CVA, HIV, Chronic Kidney Disease, Sleep Apnea - Surgical History Surgical History: - Family History Family History: States: [place], CAD, Diabetes, Hypertension Denies: Stroke - Immunization History Hx Tetanus Toxoid Vaccination: No Hx Influenza Vaccination: No Hx Pneumococcal Vaccination: Yes (prior to sx) - Home Medications Home Medications: Ambulatory Orders Medication Instructions Recorded Famotidine [Pepcid] 20 mg PO BID #28 tab 03/26/17 Zolpidem [Ambien] 10 mg PO HS 03/27/17 Metoprolol Tartrate [Lopressor] 25 mg PO Q12 #60 tab 03/30/17 Simethicone [Mylicon Chew Tab] 40 mg PO QID PRN #30 chew 03/30/17 Ondansetron ODT [Zofran ODT] 4 mg PO Q8 PRN #10 odt 06/30/17 Dicyclomine [Dicyclomine HCl] 10 mg PO Q6 #20 cap 09/04/17 amLODIPine [Norvasc] 5 mg PO DAILY #30 tab 09/04/17 - Allergies Allergies/Adverse Reactions: Allergies Allergy/AdvReac Type Severity Reaction Status Date / Time No Known Allergies Allergy Verified 06/28/17 13:21 Review of Systems ROS Statement: Except As Marked, All Systems Reviewed And Found Negative Constitutional: Negative for: Fever, Chills Cardiovascular: Negative for: Chest Pain Respiratory: Negative for: Shortness of Breath Gastrointestinal: Positive for: Vomiting, Abdominal Pain, Diarrhea Physical Exam - Reviewed Nursing Documentation Reviewed: Yes Vital Signs Reviewed: Yes - Physical Exam Appears: Positive for: Non-toxic, Uncomfortable Head Exam: Positive for: ATRAUMATIC, NORMAL INSPECTION, NORMOCEPHALIC Skin: Positive for: Normal Color Eye Exam: Positive for: Normal appearance Neck: Positive for: Supple Cardiovascular/Chest: Positive for: Regular Rate, Rhythm Respiratory: Positive for: Normal Breath Sounds Gastrointestinal/Abdominal: Positive for: Soft, Tenderness (epigastric and right upper quadrant tenderness) Extremity: Positive for: Normal ROM. Negative for: Pedal Edema Neurologic/Psych: Positive for: Alert, Oriented. Negative for: Motor/Sensory Deficits - Laboratory Results Result Diagrams: 09/04/17 05:25 09/04/17 05:25 - ECG O2 Sat by Pulse Oximetry: 100 (RA) Pulse Ox Interpretation: Normal Medical Decision Making Medical Decision Making: Impression: Abdominal pain, alcohol abuse Differential: Acute pancreatitis, gastritis, biliary disease Plan: -- Labs -- IV Fluids -- Zofran 4mg IVP -- Morphine 4 mg IVP -- IV Fluids Previous visits reviewed by provider and patient has had ultrasound studies as well as MCR. Time: 1146 CT Abdomen and pelvis FINDINGS: LOWER THORAX: Evaluation of the lung bases reveals no evidence of infiltrate. Mild interstitial change and/or scarring is noted posteriorly. No pleural effusion is seen. Small hiatal hernia and prior gastric bypass surgery is appreciated. LIVER: Liver is mildly fatty infiltrated, without evidence of new focal mass lesion, abscess, or perihepatic fluid. No intrahepatic ductal dilatation is noted. GALLBLADDER AND BILE DUCTS: Gallbladder is moderately distended, without wall thickening or gallstones. Common bile duct is normal in size without common bile duct calculus. PANCREAS: There is evidence of moderate pancreatitis with moderate peripancreatic low- density fluid and phlegmon primarily adjacent to the pancreatic body and tail region. Areas of additional fluid in phlegmon extend into the left upper quadrant and left anterior para renal space. Portions of the fluid also abut the spleen and the left adrenal gland. No pseudocyst formation is noted. Pancreatic duct is not significantly dilated. No appreciable hemorrhages noted within the fluid or adjacent to the pancreas to suggest hemorrhagic pancreatitis although this cannot fully be excluded. Portal vein is patent as well as the splenic vein. SPLEEN: No pseudocyst formation. Spleen is normal in size and density. ADRENALS: Unremarkable. No mass. KIDNEYS AND URETERS: No hydronephrosis is noted. Kidneys are normal in size. No ureteral calculus is seen. VASCULATURE: Unremarkable. No aortic aneurysm. BOWEL: There is evidence of a small telescoping loop of small bowel in the left upper quadrant highly suspicious for area of mild intussusception. There may be some mild slightly dilated fluid-filled bowel loops adjacent to this area. No bowel wall thickening is noted to suggest ischemia. Visualized colon shows no evidence of colonic wall thickening. Moderate residual fecal material is appreciated in the terminal ileum which is also mildly distended. No appreciable colitis is noted. Duodenum is not dilated. APPENDIX: Normal appendix. PERITONEUM: Peripancreatic fluid and phlegmon in the left upper quadrant as described previously. Small amount of fluid may also be seen in the pericolic gutter on the left. A minimal amount of fluid is also seen in Aguayo's pouch. LYMPH NODES: Unremarkable. No enlarged lymph nodes. BLADDER: Unremarkable. REPRODUCTIVE: There is evidence of a nonspecific area of rounded hypodense homogeneous new right adnexal cyst measuring 6.6 x 5.1 x 3.6 centimeters. This slightly displaces the uterus to the left. Uterus is normal in size. No left adnexal masses are noted. A minimal amount of cul-de-sac fluid is not excluded. BONES: No acute fracture. OTHER FINDINGS: There is once again evidence of moderate areas of nonspecific soft tissue density in the posterior pelvic and gluteal subcutaneous soft tissues which may be related to chronic dependent edema. IMPRESSION: Moderate pancreatitis with low-density peripancreatic fluid and phlegmon extending into the left para renal space and left upper quadrant. No pseudocyst formation. No bile duct dilatation. Mildly distended gallbladder without gallbladder wall thickening or gallstones. Suspected small left upper quadrant jejunal intussusception, new from prior study. There is a small amount of mildly dilated fluid-filled bowel adjacent to this area although no bowel wall thickening or ischemia is suspected. Time: 1149 Case discussed with Sergio Santoro including CT findings and he is requesting Dr. Peralta's service for surgery and Dr. De Leon for GI. Diagnosis: Acute pancreatitis, jejunal intussusception. Time: [address] Peralta regarding phlegmon and jejunal intussusception found on CT read and states he will be on consult; also requesting director surgical be informed. Case discussed with Dr. De Leon regarding the acute pancreatitis and he will be on consult as well. Time: 1250 [facility] [place] informed of case, will come and evaluate patient at bedside. Scribe Attestation: Documented by Molly Palomares acting as a scribe for Pedro Pablo Watts MD. Provider Attestation: All medical record entries made by the Scribe were at my direction and personally dictated by me. I have reviewed the chart and agree that the record accurately reflects my personal performance of the history, physical exam, medical decision making, and the department course for this patient. I have also personally directed, reviewed, and agree with the discharge instructions and disposition. Disposition - Clinical Impression Clinical Impression: Pancreatitis - Patient ED Disposition Is Patient to be Admitted: Yes Discussed With DrGisela: Sergio Santoro Doctor Will See Patient In The: Hospital Counseled Patient/Family Regarding: Studies Performed, Diagnosis - Disposition Disposition Time: 12:20 Condition: FAIR - Pt Status Changed To: Hospital Disposition Of: Inpatient - Admit Certification Admit to Inpatient:: After my assessment, the patient will require hospitalization for at least two midnights. This is because of the severity of symptoms shown, intensity of services needed, and/or the medical risk in this patient being treated as an outpatient. - POA Present On Arrival: None
[2017-09-02] MEDS: Morphine 4 MG/ML VIAL IVP ONE ×2 (09:05→11:39)
[2017-09-02 10:15] LABS: BARBITURATES, UR NEGATIVE (NEGATIVE); BENZODIAZEPINES, UR NEGATIVE (NEGATIVE); OPIATES, UR NEGATIVE (NEGATIVE); PHENCYCLIDINE, UR NEGATIVE (NEGATIVE)
[2017-09-02 10:16] LABS: BASO % 0.3 % (0.0-2.0); EOS # 0.1 K/uL (0.0-0.7); EOS % 1.2 % (0.0-4.0); HEMOGLOBIN 14.6 g/dL (12.0-16.0); LYMPH # 1.5 K/uL (1.0-4.3); LYMPH % 18.4 % (20.0-40.0); MEAN CELL VOLUME 92.3 fl (81.0-99.0); MEAN CORPUSCULAR HEMOGLOBIN 31.8 pg (27.0-31.0); MEAN CORPUSCULAR HGB CONC 34.5 g/dL (33.0-37.0); MEAN PLATELET VOLUME 7.6 fl (7.2-11.7); MONO # 0.5 K/uL (0.0-0.8); MONO % 5.6 % (0.0-10.0); NEUT # 6.3 K/uL (1.8-7.0); NEUT % 74.5 % (50.0-75.0); NRBC % 0.3 % (0.0-0.0); RBC 4.6 Mil/uL (3.80-5.20); WHITE BLOOD COUNT 8.4 K/uL (4.8-10.8)
[2017-09-02 10:21] LABS: ALB/GLOB RATIO 1.1 (1.0-2.1); ALBUMIN 4.2 g/dL (3.5-5.0); ALT/SGPT 42 U/L (9-52); AST/SGOT 50 U/L (14-36); BLOOD UREA NITROGEN 11 mg/dl (7-17); CALCIUM 9.7 mg/dL (8.4-10.2); GFR AFRICAN-AMERICAN > 60; GFR NON-AFRICAN AMERICAN > 60; LIPASE 1801 U/L (23-300)
[2017-09-02] MEDS ORDERED: Iohexol 300 100 ML IJ ONE (10:43)
[2017-09-02] MEDS ORDERED: Sodium Chloride 0.9% 100 ML ONE (10:43)
--- NOTE | 2017-09-02 11:35 | CT ---
PROCEDURE: CT Abdomen and Pelvis with contrast HISTORY: abdomianl pain hx acute pancreatitis, history of gastric bypass surgery COMPARISON: CT scan 03/27/2017, MRCP 03/27/2017 TECHNIQUE: Contrast dose: 100 cc Omnipaque Radiation dose: Total exam DLP = 1054 mGy-cm. This CT exam was performed using one or more of the following dose reduction techniques: Automated exposure control, adjustment of the mA and/or kV according to patient size, and/or use of iterative reconstruction technique. FINDINGS: LOWER THORAX: Evaluation of the lung bases reveals no evidence of infiltrate. Mild interstitial change and/or scarring is noted posteriorly. No pleural effusion is seen. Small hiatal hernia and prior gastric bypass surgery is appreciated. LIVER: Liver is mildly fatty infiltrated, without evidence of new focal mass lesion, abscess, or perihepatic fluid. No intrahepatic ductal dilatation is noted. GALLBLADDER AND BILE DUCTS: Gallbladder is moderately distended, without wall thickening or gallstones. Common bile duct is normal in size without common bile duct calculus. PANCREAS: There is evidence of moderate pancreatitis with moderate peripancreatic low-density fluid and phlegmon primarily adjacent to the pancreatic body and tail region. Areas of additional fluid in phlegmon extend into the left upper quadrant and left anterior para renal space. Portions of the fluid also abut the spleen and the left adrenal gland. No pseudocyst formation is noted. Pancreatic duct is not significantly dilated. No appreciable hemorrhages noted within the fluid or adjacent to the pancreas to suggest hemorrhagic pancreatitis although this cannot fully be excluded. Portal vein is patent as well as the splenic vein. SPLEEN: No pseudocyst formation. Spleen is normal in size and density. ADRENALS: Unremarkable. No mass. KIDNEYS AND URETERS: No hydronephrosis is noted. Kidneys are normal in size. No ureteral calculus is seen. VASCULATURE: Unremarkable. No aortic aneurysm. BOWEL: There is evidence of a small telescoping loop of small bowel in the left upper quadrant highly suspicious for area of mild intussusception. There may be some mild slightly dilated fluid-filled bowel loops adjacent to this area. No bowel wall thickening is noted to suggest ischemia. Visualized colon shows no evidence of colonic wall thickening. Moderate residual fecal material is appreciated in the terminal ileum which is also mildly distended. No appreciable colitis is noted. Duodenum is not dilated. APPENDIX: Normal appendix. PERITONEUM: Peripancreatic fluid and phlegmon in the left upper quadrant as described previously. Small amount of fluid may also be seen in the pericolic gutter on the left. A minimal amount of fluid is also seen in Aguayo's pouch. LYMPH NODES: Unremarkable. No enlarged lymph nodes. BLADDER: Unremarkable. REPRODUCTIVE: There is evidence of a nonspecific area of rounded hypodense homogeneous new right adnexal cyst measuring 6.6 x 5.1 x 3.6 centimeters. This slightly displaces the uterus to the left. Uterus is normal in size. No left adnexal masses are noted. A minimal amount of cul-de-sac fluid is not excluded. BONES: No acute fracture. OTHER FINDINGS: There is once again evidence of moderate areas of nonspecific soft tissue density in the posterior pelvic and gluteal subcutaneous soft tissues which may be related to chronic dependent edema. IMPRESSION: Moderate pancreatitis with low-density peripancreatic fluid and phlegmon extending into the left para renal space and left upper quadrant. No pseudocyst formation. No bile duct dilatation. Mildly distended gallbladder without gallbladder wall thickening or gallstones. Suspected small left upper quadrant jejunal intussusception, new from prior study. There is a small amount of mildly dilated fluid-filled bowel adjacent to this area although no bowel wall thickening or ischemia is suspected.
[2017-09-02] MEDS ORDERED: Morphine 4 MG/ML VIAL ONE (11:36)
[2017-09-02] MEDS ORDERED: Lactated Ringer's 1,000 ML IV SCH (12:00)
[2017-09-02 12:19] LABS: VENOUS BLOOD GAS BASE EXCESS 0.3 mmol/L (0.0-2.0); VENOUS BLOOD GAS PCO2 42 mmHg (40-60); VENOUS BLOOD GAS PO2 66 mm/Hg (30-55); VENOUS BLOOD PH 7.39 (7.32-7.43)
[2017-09-02] MEDS ORDERED: Simethicone 80 mg Chewtab PO PRN (12:41)
[2017-09-02] MEDS: Lactated Ringer's 1,000 ML IV SCH ×3 (13:00→21:59)
--- NOTE | 2017-09-02 14:07 | CP.PCM.CON ---
History of Present Illness - History of Present Illness History of Present Illness: General Surgery Consult Note for Dr. Peralta This 41F with a PMH of ETOH dependence and multiple episodes of hospitalization for pancreatitis. Presented to the ED with one day of abdominal pain. She reports nausea and vomiting last BM the day before yesterday cannot recall if passing regular flatus. She denies any chest pain or SB. CT scan in [facility] was significant for pancreatitis with peripancreatic fluid and a peripancreatic phelegmon as well as a questionable intussuception. She denies any fevers or chills. PMH: HTN, Pancreatitis PSH: Gastric bypass ALL: NKDA Social: 3-4 bottles of wine per week, denies tobacco, and drugs Review of Systems - Review of Systems All systems: reviewed and no additional remarkable complaints except - Constitutional Constitutional: Anorexia. absent: Fever - Gastrointestinal Gastrointestinal: Abdominal Pain, Bloating, Nausea, Vomiting. absent: Coffee Ground Emesis, Hematochezia, Melena Past Patient History - Infectious Disease Hx of Infectious Diseases: None - Past Medical History & Family History Past Medical History?: Yes - Past Social History Smoking Status: Former Smoker - CARDIAC Hx Hypercholesterolemia: Yes (resolved after bariatric surgery) Hx Hypertension: Yes - PULMONARY Hx Asthma: Yes Hx Sleep Apnea: No - HEENT Hx HEENT Problems: No - RENAL Hx Chronic Kidney Disease: No - ENDOCRINE/METABOLIC Hx Endocrine Disorders: No - HEMATOLOGICAL/ONCOLOGICAL Hx Human Immunodeficiency Virus (HIV): No - INTEGUMENTARY Hx Dermatological Problems: No - MUSCULOSKELETAL/RHEUMATOLOGICAL Hx Musculoskeletal Disorders: No Hx Falls: No - GASTROINTESTINAL Hx Gastritis: Yes Hx Pancreatitis: Yes - GENITOURINARY/GYNECOLOGICAL Hx Genitourinary Disorders: No - PSYCHIATRIC Hx Anxiety: Yes Hx Depression: Yes - SURGICAL HISTORY Hx Surgeries: Yes Hx Section: Yes Hx Gastric Bypass Surgery: Yes - ANESTHESIA Hx Anesthesia: Yes Hx Anesthesia Reactions: No Hx Malignant Hyperthermia: No Meds Allergies/Adverse Reactions: Allergies Allergy/AdvReac Type Severity Reaction Status Date / Time No Known Allergies Allergy Verified 06/28/17 13:21 - Medications Medications: Current Medications Famotidine (Pepcid) 20 mg IVP Q12 JAYLIN Lactated Ringer's (Lactated Ringer's) 1,000 mls @ 150 mls/hr IV .[id number] JAYLIN Ketorolac Tromethamine (Toradol) 15 mg IVP Q6 PRN PRN Reason: Pain, moderate (4-7) Metoprolol Tartrate (Lopressor) 25 mg PO Q12 JAYLIN Morphine Sulfate (Morphine) 2 mg IVP Q4 PRN PRN Reason: Pain, severe (8-10) Ondansetron HCl (Zofran Inj) 4 mg IVP Q6 PRN PRN Reason: Nausea/Vomiting Simethicone (Mylicon Chew Tab) 40 mg PO QID PRN PRN Reason: Flatulence Zolpidem Tartrate (Ambien) 5 mg PO HS JAYLIN Physical Exam - Constitutional Appears: Non-toxic, No Acute Distress - Head Exam Head Exam: ATRAUMATIC, NORMOCEPHALIC - Eye Exam Eye Exam: EOMI, Normal appearance - Respiratory Exam Respiratory Exam: NORMAL BREATHING PATTERN - Cardiovascular Exam Cardiovascular Exam: +S1, +S2 - GI/Abdominal Exam GI & Abdominal Exam: Soft. absent: Distended, Firm, Guarding, Hernia, Rebound, Rigid - Neurological Exam Neurological exam: Alert, Oriented x3 - Psychiatric Exam Psychiatric exam: Normal Affect, Normal Mood - Skin Skin Exam: Dry Results - Vital Signs Recent Vital Signs: Last Vital Signs Temp 98.4 F 09/02/17 12:41 Pulse 104 H 09/02/17 12:41 Resp 16 09/02/17 12:41 BP 137/84 09/02/17 12:41 Pulse Ox 100 09/02/17 12:58 - Labs Result Diagrams: 09/02/17 09:25 09/02/17 09:25 Labs: Laboratory Results - last 24 hr 09/02/17 09/02/17 09/02/17 09:25 09:25 09:25 WBC 8.4 RBC 4.60 Hgb 14.6 D Hct 42.5 MCV 92.3 D MCH 31.8 H MCHC 34.5 RDW 14.0 Plt Count 350 D MPV 7.6 Neut % (Auto) 74.5 Lymph % (Auto) 18.4 L [place] % (Auto) 5.6 Eos % (Auto) 1.2 Baso % (Auto) 0.3 Neut # (Auto) 6.3 Lymph # (Auto) 1.5 [place] # (Auto) 0.5 Eos # (Auto) 0.1 Baso # (Auto) 0.0 pO2 VBG pH VBG pCO2 VBG HCO3 VBG Total CO2 VBG O2 Sat (Calc) VBG Base Excess VBG Potassium Glucose Lactate FiO2 Sodium 138 Potassium 3.5 L Chloride 96 L Carbon Dioxide 26 Anion Gap 20 BUN 11 Creatinine 0.6 L Est GFR ( Amer) > 60 Est GFR (Non-Af Amer) > 60 Random Glucose 159 H Calcium 9.7 Total Bilirubin 0.7 AST 50 H D ALT 42 Alkaline Phosphatase 86 Total Protein 7.9 Albumin 4.2 Globulin 3.7 Albumin/Globulin Ratio 1.1 Lipase 1801 H Venous Blood Potassium Urine Opiates Screen Negative Urine Methadone Screen Negative Ur Barbiturates Screen Negative Ur Phencyclidine Scrn Negative Ur Amphetamines Screen Negative U Benzodiazepines Scrn Negative U Oth Cocaine Metabols Negative U Cannabinoids Screen Negative Alcohol, Quantitative < 10 09/02/17 12:10 WBC RBC Hgb Hct MCV MCH MCHC RDW Plt Count MPV Neut % (Auto) Lymph % (Auto) [place] % (Auto) Eos % (Auto) Baso % (Auto) Neut # (Auto) Lymph # (Auto) [place] # (Auto) Eos # (Auto) Baso # (Auto) pO2 66 H VBG pH 7.39 VBG pCO2 42 VBG HCO3 25.0 VBG Total CO2 26.7 VBG O2 Sat (Calc) 100.0 H VBG Base Excess 0.3 VBG Potassium 3.9 Glucose 145 H Lactate 1.6 FiO2 21.0 Sodium 134.0 Potassium Chloride 104.0 Carbon Dioxide Anion Gap BUN Creatinine Est GFR ( Amer) Est GFR (Non-Af Amer) Random Glucose Calcium Total Bilirubin AST ALT Alkaline Phosphatase Total Protein Albumin Globulin Albumin/Globulin Ratio Lipase Venous Blood Potassium 3.9 Urine Opiates Screen Urine Methadone Screen Ur Barbiturates Screen Ur Phencyclidine Scrn Ur Amphetamines Screen U Benzodiazepines Scrn U Oth Cocaine Metabols U Cannabinoids Screen Alcohol, Quantitative Assessment & Plan - Assessment and Plan (Free Text) Assessment: 41 Female with acute pancreatitis and possible intussuception NPO IVF Repeat CT scan monday Recommend treatment of pancreatitis before surgical intervention is considered D/W Dr. Kathryn Stringer PGY2
--- NOTE | 2017-09-02 14:50 | CARD ---
APPROVED REPORT EKG Measurement Heart [id number] <Conclusion> Sinus tachycardia Otherwise normal ECG
[2017-09-03] MEDS: Lactated Ringer's 1,000 ML IV SCH ×4 (02:33→20:38)
[2017-09-03] MEDS: Morphine 4 MG/ML VIAL IVP PRN ×4 (03:59→17:59)
--- NOTE | 2017-09-03 07:33 | CP.PCM.HP ---
History of Present Illness - History of Present Illness History of Present Illness: PT ADMITTED FOR ALCOHOLIC PANCREATITIS. PT STATES HAS CONTINUED DRINKING ETOH. C/O PAIN STARTING 1 DAY PT. ACCOMPANIED BY N/V. BP ELEVATED WHICH IS PTS NORM UPON ARRIVAL TO HOSPITAL. AT PRESENT PAIN CONTROLLED. NO F/,C N/V/D. ER LABS NOTED. AM LABS PENDING. SURGICAL CONSULT APPRICIATED. Present on Admission - Present on Admission Any Indicators Present on Admission: No Review of Systems - Gastrointestinal Gastrointestinal: As Per HPI, Abdominal Pain, Nausea, Vomiting Past Patient History - Infectious Disease Hx of Infectious Diseases: None - Past Medical History & Family History Past Medical History?: Yes - Past Social History Smoking Status: Former Smoker - CARDIAC Hx Hypercholesterolemia: Yes (resolved after bariatric surgery) Hx Hypertension: Yes - PULMONARY Hx Asthma: Yes Hx Sleep Apnea: No - HEENT Hx HEENT Problems: No - RENAL Hx Chronic Kidney Disease: No - ENDOCRINE/METABOLIC Hx Endocrine Disorders: No - HEMATOLOGICAL/ONCOLOGICAL Hx Human Immunodeficiency Virus (HIV): No - INTEGUMENTARY Hx Dermatological Problems: No - MUSCULOSKELETAL/RHEUMATOLOGICAL Hx Musculoskeletal Disorders: No Hx Falls: No - GASTROINTESTINAL Hx Gastritis: Yes Hx Pancreatitis: Yes - GENITOURINARY/GYNECOLOGICAL Hx Genitourinary Disorders: No - PSYCHIATRIC Hx Anxiety: Yes Hx Depression: Yes Hx Substance Use: No - SURGICAL HISTORY Hx Surgeries: Yes Hx Section: Yes Hx Gastric Bypass Surgery: Yes - ANESTHESIA Hx Anesthesia: Yes Hx Anesthesia Reactions: No Hx Malignant Hyperthermia: No Meds Allergies/Adverse Reactions: Allergies Allergy/AdvReac Type Severity Reaction Status Date / Time No Known Allergies Allergy Verified 06/28/17 13:21 Physical Exam - Constitutional Appears: Well, Non-toxic, No Acute Distress - Head Exam Head Exam: ATRAUMATIC, NORMAL INSPECTION, NORMOCEPHALIC - Eye Exam Eye Exam: EOMI, Normal appearance, PERRL Pupil Exam: NORMAL ACCOMODATION, PERRL - ENT Exam ENT Exam: Mucous Membranes Moist, Normal Exam - Neck Exam Neck exam: Positive for: Normal Inspection - Respiratory Exam Respiratory Exam: Clear to Auscultation Bilateral, NORMAL BREATHING PATTERN - Cardiovascular Exam Cardiovascular Exam: REGULAR RHYTHM, RRR, +S1, +S2 - GI/Abdominal Exam GI & Abdominal Exam: Normal Bowel Sounds, Soft. absent: Tenderness - Extremities Exam Extremities exam: Positive for: full ROM, normal capillary refill, normal inspection, pedal pulses present - Back Exam Back exam: NORMAL INSPECTION - Neurological Exam Neurological exam: Alert, CN II-XII Intact, Normal Gait, Oriented x3, Reflexes Normal - Psychiatric Exam Psychiatric exam: Normal Affect, Normal Mood - Skin Skin Exam: Dry, Intact, Normal Color, Warm Results - Vital Signs Recent Vital Signs: Last Vital Signs Temp 98.3 F 09/02/17 21:20 Pulse 108 H 09/02/17 21:20 Resp 17 09/02/17 21:20 BP 158/100 H 09/02/17 21:20 Pulse Ox 100 09/02/17 21:20 - Labs Result Diagrams: 09/02/17 09:25 09/03/17 05:30 Labs: Laboratory Results - last 24 hr 09/02/17 09/02/17 09/02/17 09:25 09:25 09:25 WBC 8.4 RBC 4.60 Hgb 14.6 D Hct 42.5 MCV 92.3 D MCH 31.8 H MCHC 34.5 RDW 14.0 Plt Count 350 D MPV 7.6 Neut % (Auto) 74.5 Lymph % (Auto) 18.4 L Pope % (Auto) 5.6 Eos % (Auto) 1.2 Baso % (Auto) 0.3 Neut # (Auto) 6.3 Lymph # (Auto) 1.5 Pope # (Auto) 0.5 Eos # (Auto) 0.1 Baso # (Auto) 0.0 pO2 VBG pH VBG pCO2 VBG HCO3 VBG Total CO2 VBG O2 Sat (Calc) VBG Base Excess VBG Potassium Glucose Lactate FiO2 Sodium 138 Potassium 3.5 L Chloride 96 L Carbon Dioxide 26 Anion Gap 20 BUN 11 Creatinine 0.6 L Est GFR ( Amer) > 60 Est GFR (Non-Af Amer) > 60 Random Glucose 159 H Calcium 9.7 Total Bilirubin 0.7 AST 50 H D ALT 42 Alkaline Phosphatase 86 Total Protein 7.9 Albumin 4.2 Globulin 3.7 Albumin/Globulin Ratio 1.1 Lipase 1801 H Venous Blood Potassium Urine Opiates Screen Negative Urine Methadone Screen Negative Ur Barbiturates Screen Negative Ur Phencyclidine Scrn Negative Ur Amphetamines Screen Negative U Benzodiazepines Scrn Negative U Oth Cocaine Metabols Negative U Cannabinoids Screen Negative Alcohol, Quantitative < 10 09/02/17 12:10 WBC RBC Hgb Hct MCV MCH MCHC RDW Plt Count MPV Neut % (Auto) Lymph % (Auto) Pope % (Auto) Eos % (Auto) Baso % (Auto) Neut # (Auto) Lymph # (Auto) Pope # (Auto) Eos # (Auto) Baso # (Auto) pO2 66 H VBG pH 7.39 VBG pCO2 42 VBG HCO3 25.0 VBG Total CO2 26.7 VBG O2 Sat (Calc) 100.0 H VBG Base Excess 0.3 VBG Potassium 3.9 Glucose 145 H Lactate 1.6 FiO2 21.0 Sodium 134.0 Potassium Chloride 104.0 Carbon Dioxide Anion Gap BUN Creatinine Est GFR ( Amer) Est GFR (Non-Af Amer) Random Glucose Calcium Total Bilirubin AST ALT Alkaline Phosphatase Total Protein Albumin Globulin Albumin/Globulin Ratio Lipase Venous Blood Potassium 3.9 Urine Opiates Screen Urine Methadone Screen Ur Barbiturates Screen Ur Phencyclidine Scrn Ur Amphetamines Screen U Benzodiazepines Scrn U Oth Cocaine Metabols U Cannabinoids Screen Alcohol, Quantitative Assessment & Plan (1) Bariatric surgery status Assessment and Plan: per general surgery pt to f/u outpt w/ bariatric surgery dr benjamin Status: Acute (2) DVT prophylaxis Assessment and Plan: scd and ae hose ambulation Status: Acute (3) Hypertension Assessment and Plan: metoprolol, add norvasc 1x dose of clonidine yesterday Status: Acute (4) Pancreatitis Assessment and Plan: npo except meds, ivf gi and surgical consults ct finding and lab findings reviewed. uziel ed/c w/ dr sanon Status: Acute Decision To Admit - Pt Status Changed To: Hospital Disposition Of: Inpatient - Admit Certification Admit to Inpatient:: After my assessment, the patient will require hospitalization for at least two midnights. This is because of the severity of symptoms shown, intensity of services needed, and/or the medical risk in this patient being treated as an outpatient. - . Bed Request Type: Med/Surg Admitting Physician: Darryn Oneill
[2017-09-03 07:41] LABS: ALBUMIN 3.9 g/dL (3.5-5.0); ALT/SGPT 25 U/L (9-52); AST/SGOT 38 U/L (14-36); BLOOD UREA NITROGEN 6 mg/dl (7-17); CALCIUM 8.9 mg/dL (8.4-10.2); GFR AFRICAN-AMERICAN > 60; GFR NON-AFRICAN AMERICAN > 60; LIPASE 3344 U/L (23-300)
--- NOTE | 2017-09-03 09:51 | CP.PCM.PN ---
<Alejandro Javier - Last Filed: 09/03/17 09:52> Subjective - Date & Time of Evaluation Date of Evaluation: 09/03/17 Time of Evaluation: 09:49 - Subjective Subjective: SURGERY PROGRESS NOTE FOR DR. PERALTA 41F seen and examined at bedside. Patient states pain controlled with medication , denies nausea, vomiting, fevers or chill, Admits to flatus, denies bowel movement. Objective - Vital Signs/Intake and Output Vital Signs (last 24 hours): Temp Pulse Resp BP Pulse Ox 98.8 F 100 H 18 143/86 97 09/03/17 07:45 09/03/17 07:45 09/03/17 07:45 09/03/17 09:16 09/03/17 07:45 - Medications Medications: Current Medications Amlodipine Besylate (Norvasc) 5 mg PO DAILY [facility] Last Admin: 09/03/17 09:16 Dose: 5 mg Famotidine (Pepcid) 20 mg IVP Q12 [facility] Last Admin: 09/03/17 08:12 Dose: 20 mg Lactated Ringer's (Lactated Ringer's) 1,000 mls @ 150 mls/hr IV .Q6H40M [facility] Last Admin: 09/03/17 09:28 Dose: Not Given Ketorolac Tromethamine (Toradol) 15 mg IVP Q6 PRN PRN Reason: Pain, moderate (4-7) Last Admin: 09/02/17 14:35 Dose: 15 mg Metoprolol Tartrate (Lopressor) 25 mg PO Q12 [facility] Last Admin: 09/03/17 09:16 Dose: 25 mg Morphine Sulfate (Morphine) 4 mg IVP Q4 PRN PRN Reason: Pain, severe (8-10) Last Admin: 09/03/17 08:13 Dose: 4 mg Ondansetron HCl (Zofran Inj) 4 mg IVP Q6 PRN PRN Reason: Nausea/Vomiting Simethicone (Mylicon Liq) 40 mg PO QID PRN PRN Reason: Flatulence Zolpidem Tartrate (Ambien) 5 mg PO HS [facility] Last Admin: 09/02/17 22:30 Dose: Not Given - Labs Labs: 09/02/17 09:25 09/03/17 05:30 - Constitutional Appears: Well, Non-toxic, No Acute Distress - Respiratory Exam Respiratory Exam: Clear to Ausculation Bilateral, NORMAL BREATHING PATTERN - Cardiovascular Exam Cardiovascular Exam: REGULAR RHYTHM, +S1, +S2 - GI/Abdominal Exam GI & Abdominal Exam: Soft, Tenderness (moderately tender in epigastric and mid abdominal region). absent: Distended, Firm, Guarding, Rigid, Rebound - Neurological Exam Neurological Exam: Alert, Awake - Psychiatric Exam Psychiatric exam: Normal Affect, Normal Mood - Skin Skin Exam: Dry, Intact, Normal Color, Warm Assessment and Plan - Assessment and Plan (Free Text) Assessment: 41F with Pancreatitis With intussuception, non obstructing read on CT also Plan: - pain control - continue IVF - Await bowel movement - recommend follow up with Bariatric surgeon upon treatment of pancreatitis Further recs discuss with Dr. fab Javier, PGY2 <Bertram Peralta - Last Filed: 09/03/17 14:21> Subjective - Date & Time of Evaluation Time of Evaluation: 14:00 - Subjective Subjective: Patient was seen and examined at the bedside. Agree with resident's note above. Objective - Vital Signs/Intake and Output Vital Signs (last 24 hours): Temp Pulse Resp BP Pulse Ox 98.8 F 100 H 18 143/86 97 09/03/17 07:45 09/03/17 07:45 09/03/17 07:45 09/03/17 09:16 09/03/17 07:45 - Medications Medications: Current Medications Amlodipine Besylate (Norvasc) 5 mg PO DAILY [facility] Last Admin: 09/03/17 09:16 Dose: 5 mg Famotidine (Pepcid) 20 mg IVP Q12 [facility] Last Admin: 09/03/17 08:12 Dose: 20 mg Lactated Ringer's (Lactated Ringer's) 1,000 mls @ 150 mls/hr IV .Q6H40M [facility] Last Admin: 09/03/17 09:28 Dose: Not Given Ketorolac Tromethamine (Toradol) 15 mg IVP Q6 PRN PRN Reason: Pain, moderate (4-7) Last Admin: 09/03/17 13:32 Dose: 15 mg Metoprolol Tartrate (Lopressor) 25 mg PO Q12 [facility] Last Admin: 09/03/17 09:16 Dose: 25 mg Morphine Sulfate (Morphine) 4 mg IVP Q4 PRN PRN Reason: Pain, severe (8-10) Last Admin: 09/03/17 12:01 Dose: 4 mg Ondansetron HCl (Zofran Inj) 4 mg IVP Q6 PRN PRN Reason: Nausea/Vomiting Simethicone (Mylicon Liq) 40 mg PO QID PRN PRN Reason: Flatulence Zolpidem Tartrate (Ambien) 5 mg PO HS [facility] Last Admin: 09/02/17 22:30 Dose: Not Given - Labs Labs: 09/02/17 09:25 09/03/17 05:30 Assessment and Plan - Assessment and Plan (Free Text) Plan: - Keep NPO - IV fluids - Pain control - Repeat labs in am - Will follow
[2017-09-03] MEDS ORDERED: Lactated Ringer's 1,000 ML IV SCH (15:13)
[2017-09-03] MEDS: Simethicone 40 mg/0.6 ml Liquid (30 ml) PO PRN (15:17)
[2017-09-04] MEDS: Lactated Ringer's 1,000 ML IV SCH ×5 (00:30→11:58)
[2017-09-04] MEDS: Morphine 4 MG/ML VIAL IVP PRN ×3 (01:13→12:04)
[2017-09-04] MEDS: Simethicone 40 mg/0.6 ml Liquid (30 ml) PO PRN ×2 (02:22→12:17)
[2017-09-04 06:42] LABS: BASO % 0.3 % (0.0-2.0); EOS # 0.1 K/uL (0.0-0.7); EOS % 1.3 % (0.0-4.0); LYMPH # 1.3 K/uL (1.0-4.3); LYMPH % 17.9 % (20.0-40.0); MEAN CELL VOLUME 94.1 fl (81.0-99.0); MEAN CORPUSCULAR HEMOGLOBIN 31.7 pg (27.0-31.0); MEAN CORPUSCULAR HGB CONC 33.7 g/dL (33.0-37.0); MEAN PLATELET VOLUME 7.7 fl (7.2-11.7); MONO # 0.5 K/uL (0.0-0.8); MONO % 6.9 % (0.0-10.0); NEUT # 5.3 K/uL (1.8-7.0); NEUT % 73.6 % (50.0-75.0); RBC 3.71 Mil/uL (3.80-5.20); RED CELL DISTRIBUTION WIDTH 13.8 % (11.5-14.5); WHITE BLOOD COUNT 7.3 K/uL (4.8-10.8)
[2017-09-04 07:04] LABS: ALBUMIN 3.4 g/dL (3.5-5.0); ALT/SGPT 28 U/L (9-52); AST/SGOT 24 U/L (14-36); BLOOD UREA NITROGEN 5 mg/dl (7-17); CALCIUM 9.2 mg/dL (8.4-10.2); GFR AFRICAN-AMERICAN > 60; GFR NON-AFRICAN AMERICAN > 60; LIPASE 1246 U/L (23-300)
[2017-09-04 07:33] LABS: HEMOGLOBIN 11.8 g/dL (12.0-16.0)
--- NOTE | 2017-09-04 08:19 | CP.PCM.PN ---
Subjective - Date & Time of Evaluation Date of Evaluation: 09/04/17 Time of Evaluation: 08:17 - Subjective Subjective: pt doing well, less pain. no f/c,n/v/d. pt starting to feel hungry. consults appriciated. labs noted. Objective - Vital Signs/Intake and Output Vital Signs (last 24 hours): Temp Pulse Resp BP Pulse Ox 98.7 F 95 H 19 136/87 95 09/04/17 00:00 09/04/17 00:00 09/04/17 00:00 09/04/17 00:00 09/04/17 00:00 - Medications Medications: Current Medications Amlodipine Besylate (Norvasc) 5 mg PO DAILY [facility] Last Admin: 09/03/17 09:16 Dose: 5 mg Famotidine (Pepcid) 20 mg IVP Q12 [facility] Last Admin: 09/03/17 20:41 Dose: 20 mg Lactated Ringer's (Lactated Ringer's) 1,000 mls @ 250 mls/hr IV .Q4H [facility] Last Admin: 09/04/17 07:00 Dose: Not Given Ketorolac Tromethamine (Toradol) 15 mg IVP Q6 PRN PRN Reason: Pain, moderate (4-7) Last Admin: 09/04/17 02:23 Dose: 15 mg Metoprolol Tartrate (Lopressor) 25 mg PO Q12 [facility] Last Admin: 09/03/17 21:36 Dose: 25 mg Morphine Sulfate (Morphine) 4 mg IVP Q4 PRN PRN Reason: Pain, severe (8-10) Last Admin: 09/04/17 05:18 Dose: 4 mg Ondansetron HCl (Zofran Inj) 4 mg IVP Q6 PRN PRN Reason: Nausea/Vomiting Simethicone (Mylicon Liq) 40 mg PO QID PRN PRN Reason: Flatulence Last Admin: 09/04/17 02:22 Dose: 40 mg Zolpidem Tartrate (Ambien) 5 mg PO HS [facility] Last Admin: 09/03/17 22:52 Dose: 5 mg - Labs Labs: 09/04/17 05:25 09/04/17 05:25 - Constitutional Appears: Well, Non-toxic, No Acute Distress - Head Exam Head Exam: ATRAUMATIC, NORMAL INSPECTION, NORMOCEPHALIC - Eye Exam Eye Exam: EOMI, Normal appearance, PERRL Pupil Exam: NORMAL ACCOMODATION, PERRL - ENT Exam ENT Exam: Mucous Membranes Moist, Normal Exam - Neck Exam Neck Exam: Full ROM, Normal Inspection. absent: Lymphadenopathy - Respiratory Exam Respiratory Exam: Clear to Ausculation Bilateral, NORMAL BREATHING PATTERN - Cardiovascular Exam Cardiovascular Exam: REGULAR RHYTHM, RRR, +S1, +S2. absent: Murmur - GI/Abdominal Exam GI & Abdominal Exam: Soft, Normal Bowel Sounds. absent: Tenderness - Extremities Exam Extremities Exam: Full ROM, Normal Capillary Refill, Normal Inspection. absent : Joint Swelling, Pedal Edema - Back Exam Back Exam: NORMAL INSPECTION - Neurological Exam Neurological Exam: Alert, Awake, CN II-XII Intact, Normal Gait, Oriented x3 - Psychiatric Exam Psychiatric exam: Normal Affect, Normal Mood - Skin Skin Exam: Dry, Intact, Normal Color, Warm Assessment and Plan (1) Bariatric surgery status Status: Acute (2) DVT prophylaxis Status: Acute (3) Hypertension Status: Acute (4) Pancreatitis Status: Acute - Assessment and Plan (Free Text) Assessment: (1) Bariatric surgery status Assessment and Plan: per general surgery pt to f/u outpt w/ bariatric surgery dr benjamin Status: Acute (2) DVT prophylaxis Assessment and Plan: scd and ae hose ambulation Status: Acute (3) Hypertension Assessment and Plan: metoprolol, add norvasc 1x dose of clonidine yesterday bp more controlled Status: Acute (4) Pancreatitis Assessment and Plan: ivf gi and surgical consults ct finding and lab findings reviewed. uziel ed/c w/ dr sanon/mahad adv diet today Status: Acute
[2017-09-04 08:26] VITALS: BP 153/98; PULSE 93; RESP 18; TEMP 98.2
--- NOTE | 2017-09-04 11:08 | CP.PCM.PN ---
Addendum entered and electronically signed by Nato Brown DO 09/04/17 12:20: Patient will need and advised to follow up with bariatric surgeon, Dr. Roberts upon discharge Original Note: <Nato Brown - Last Filed: 09/04/17 11:11> Subjective - Date & Time of Evaluation Date of Evaluation: 09/04/17 Time of Evaluation: 07:25 - Subjective Subjective: Patient seen. No acute events over night. Reports improvement of epigastric pain since admission. Patient requesting food. Denies nausea/vomiting. Passing flatus. Objective - Vital Signs/Intake and Output Vital Signs (last 24 hours): Temp Pulse Resp BP Pulse Ox 98.2 F 93 H 18 153/98 H 97 09/04/17 08:25 09/04/17 08:25 09/04/17 08:25 09/04/17 08:25 09/04/17 08:25 - Medications Medications: Current Medications Amlodipine Besylate (Norvasc) 5 mg PO DAILY [facility] Last Admin: 09/04/17 09:52 Dose: 5 mg Famotidine (Pepcid) 20 mg IVP Q12 [facility] Last Admin: 09/04/17 09:52 Dose: 20 mg Lactated Ringer's (Lactated Ringer's) 1,000 mls @ 250 mls/hr IV .Q4H [facility] Last Admin: 09/04/17 07:00 Dose: Not Given Ketorolac Tromethamine (Toradol) 15 mg IVP Q6 PRN PRN Reason: Pain, moderate (4-7) Last Admin: 09/04/17 09:52 Dose: 15 mg Metoprolol Tartrate (Lopressor) 25 mg PO Q12 [facility] Last Admin: 09/04/17 09:53 Dose: 25 mg Morphine Sulfate (Morphine) 4 mg IVP Q4 PRN PRN Reason: Pain, severe (8-10) Last Admin: 09/04/17 05:18 Dose: 4 mg Ondansetron HCl (Zofran Inj) 4 mg IVP Q6 PRN PRN Reason: Nausea/Vomiting Simethicone (Mylicon Liq) 40 mg PO QID PRN PRN Reason: Flatulence Last Admin: 09/04/17 02:22 Dose: 40 mg Zolpidem Tartrate (Ambien) 5 mg PO HS [facility] Last Admin: 09/03/17 22:52 Dose: 5 mg - Labs Labs: 09/04/17 05:25 09/04/17 05:25 - Constitutional Appears: No Acute Distress - Head Exam Head Exam: NORMOCEPHALIC - Eye Exam Eye Exam: Normal appearance - ENT Exam ENT Exam: Mucous Membranes Moist - Respiratory Exam Respiratory Exam: NORMAL BREATHING PATTERN - Cardiovascular Exam Cardiovascular Exam: +S1, +S2 - GI/Abdominal Exam GI & Abdominal Exam: Soft, Tenderness Additional comments: epigastric - Neurological Exam Neurological Exam: Alert, Awake, Oriented x3 - Psychiatric Exam Psychiatric exam: Normal Mood - Skin Skin Exam: Dry, Intact, Warm Assessment and Plan - Assessment and Plan (Free Text) Assessment: 41F w pancreatitis Plan: Adv diet as tolerated IVF Medical management per primary team C/w pain management Further recs per Dr. Peralta <Bertram Peralta - Last Filed: 09/04/17 12:28> Subjective - Date & Time of Evaluation Time of Evaluation: 11:40 - Subjective Subjective: Patient was seen and examined at the bedside. Agree with resident's note above. Passing flatus and tolerating regular diet. Objective - Vital Signs/Intake and Output Vital Signs (last 24 hours): Temp Pulse Resp BP Pulse Ox 98.2 F 93 H 18 153/98 H 97 09/04/17 08:25 09/04/17 08:25 09/04/17 08:25 09/04/17 08:25 09/04/17 08:25 - Medications Medications: Current Medications Amlodipine Besylate (Norvasc) 5 mg PO DAILY [facility] Last Admin: 09/04/17 09:52 Dose: 5 mg Famotidine (Pepcid) 20 mg IVP Q12 [facility] Last Admin: 09/04/17 09:52 Dose: 20 mg Lactated Ringer's (Lactated Ringer's) 1,000 mls @ 250 mls/hr IV .Q4H [facility] Last Admin: 09/04/17 11:58 Dose: 250 mls/hr Ketorolac Tromethamine (Toradol) 15 mg IVP Q6 PRN PRN Reason: Pain, moderate (4-7) Last Admin: 09/04/17 09:52 Dose: 15 mg Metoprolol Tartrate (Lopressor) 25 mg PO Q12 [facility] Last Admin: 09/04/17 09:53 Dose: 25 mg Morphine Sulfate (Morphine) 4 mg IVP Q4 PRN PRN Reason: Pain, severe (8-10) Last Admin: 09/04/17 12:04 Dose: 4 mg Ondansetron HCl (Zofran Inj) 4 mg IVP Q6 PRN PRN Reason: Nausea/Vomiting Simethicone (Mylicon Liq) 40 mg PO QID PRN PRN Reason: Flatulence Last Admin: 09/04/17 12:17 Dose: 40 mg Zolpidem Tartrate (Ambien) 5 mg PO HS [facility] Last Admin: 09/03/17 22:52 Dose: 5 mg - Labs Labs: 09/04/17 05:25 09/04/17 05:25 Assessment and Plan - Assessment and Plan (Free Text) Assessment: 41 y.o. female with pancreatitis and incidental finding of intussuception at jejuno-jejunal anastomosis from gastric bypass surgery Plan: - Regular diet - IV fluids - pain control - Repeat labs in am - Patient was instructed to follow up with her Bariatric surgeon once pancreatitis resolves - No general surgery intervention at present time - Will follow
--- NOTE | 2017-09-04 15:03 | CP.PCM.DIS ---
Provider - Provider Date of Admission: 09/02/17 12:24 Attending physician: Darryn Oneill MD Time Spent in preparation of Discharge (in minutes): 15 Diagnosis - Discharge Diagnosis (1) Bariatric surgery status Status: Acute (2) DVT prophylaxis Status: Acute (3) Hypertension Status: Acute (4) Pancreatitis Status: Acute Hospital Course - Lab Results Lab Results: Most Recent Lab Values WBC 7.3 K/uL (4.8-10.8) 09/04/17 05:25 RBC 3.71 Mil/uL (3.80-5.20) L 09/04/17 05:25 Hgb 11.8 g/dL (12.0-16.0) L D 09/04/17 05:25 Hct 34.9 % (34.0-47.0) 09/04/17 05:25 MCV 94.1 fl (81.0-99.0) 09/04/17 05:25 MCH 31.7 pg (27.0-31.0) H 09/04/17 05:25 MCHC 33.7 g/dL (33.0-37.0) 09/04/17 05:25 RDW 13.8 % (11.5-14.5) 09/04/17 05:25 Plt Count 234 K/uL (130-400) D 09/04/17 05:25 MPV 7.7 fl (7.2-11.7) 09/04/17 05:25 Neut % (Auto) 73.6 % (50.0-75.0) 09/04/17 05:25 Lymph % (Auto) 17.9 % (20.0-40.0) L 09/04/17 05:25 Heard % (Auto) 6.9 % (0.0-10.0) 09/04/17 05:25 Eos % (Auto) 1.3 % (0.0-4.0) 09/04/17 05:25 Baso % (Auto) 0.3 % (0.0-2.0) 09/04/17 05:25 Neut # (Auto) 5.3 K/uL (1.8-7.0) 09/04/17 05:25 Lymph # (Auto) 1.3 K/uL (1.0-4.3) 09/04/17 05:25 Heard # (Auto) 0.5 K/uL (0.0-0.8) 09/04/17 05:25 Eos # (Auto) 0.1 K/uL (0.0-0.7) 09/04/17 05:25 Baso # (Auto) 0.0 K/uL (0.0-0.2) 09/04/17 05:25 pO2 66 mm/Hg (30-55) H 09/02/17 12:10 VBG pH 7.39 (7.32-7.43) 09/02/17 12:10 VBG pCO2 42 mmHg (40-60) 09/02/17 12:10 VBG HCO3 25.0 mmol/L 09/02/17 12:10 VBG Total CO2 26.7 mmol/L (22-28) 09/02/17 12:10 VBG O2 Sat (Calc) 100.0 % (40-65) H 09/02/17 12:10 VBG Base Excess 0.3 mmol/L (0.0-2.0) 09/02/17 12:10 VBG Potassium 3.9 mmol/L (3.6-5.2) 09/02/17 12:10 Sodium 134.0 mmol/L (132-148) 09/02/17 12:10 Chloride 104.0 mmol/L (98-107) 09/02/17 12:10 Glucose 145 mg/dL (65-105) H 09/02/17 12:10 Lactate 1.6 mmol/L (0.7-2.1) 09/02/17 12:10 FiO2 21.0 % 09/02/17 12:10 Sodium 136 mmol/l (132-148) 09/04/17 05:25 Potassium 3.5 MMOL/L (3.6-5.0) L 09/04/17 05:25 Chloride 94 mmol/L (98-107) L 09/04/17 05:25 Carbon Dioxide 27 mmol/L (22-30) 09/04/17 05:25 Anion Gap 19 (10-20) 09/04/17 05:25 BUN 5 mg/dl (7-17) L 09/04/17 05:25 Creatinine 0.5 mg/dl (0.7-1.2) L 09/04/17 05:25 Est GFR ( Amer) > 60 09/04/17 05:25 Est GFR (Non-Af Amer) > 60 09/04/17 05:25 Random Glucose 71 mg/dL (65-105) 09/04/17 05:25 Calcium 9.2 mg/dL (8.4-10.2) 09/04/17 05:25 Total Bilirubin 1.1 mg/dl (0.2-1.3) 09/04/17 05:25 AST 24 U/L (14-36) 09/04/17 05:25 ALT 28 U/L (9-52) 09/04/17 05:25 Alkaline Phosphatase 61 U/L (38-126) 09/04/17 05:25 Total Protein 6.7 G/DL (6.3-8.2) 09/04/17 05:25 Albumin 3.4 g/dL (3.5-5.0) L 09/04/17 05:25 Globulin 3.3 gm/dL (2.2-3.9) 09/04/17 05:25 Albumin/Globulin Ratio 1.0 (1.0-2.1) 09/04/17 05:25 Lipase 1246 U/L (23-300) H 09/04/17 05:25 Venous Blood Potassium 3.9 mmol/L (3.6-5.2) 09/02/17 12:10 Urine Opiates Screen Negative (NEGATIVE) 09/02/17 09:25 Urine Methadone Screen Negative (NEGATIVE) 09/02/17 09:25 Ur Barbiturates Screen Negative (NEGATIVE) 09/02/17 09:25 Ur Phencyclidine Scrn Negative (NEGATIVE) 09/02/17 09:25 Ur Amphetamines Screen Negative (NEGATIVE) 09/02/17 09:25 U Benzodiazepines Scrn Negative (NEGATIVE) 09/02/17 09:25 U Oth Cocaine Metabols Negative (NEGATIVE) 09/02/17 09:25 U Cannabinoids Screen Negative (NEGATIVE) 09/02/17 09:25 Alcohol, Quantitative < 10 mg/dl (0-10) 09/02/17 09:25 - Hospital Course Hospital Course: ivf , pain meds surgery, gi consultants Discharge Exam - Head Exam Head Exam: NORMOCEPHALIC Discharge Plan - Discharge Medications Prescriptions: amLODIPine [Norvasc] 5 mg PO DAILY #30 tab Dicyclomine [Dicyclomine HCl] 10 mg PO Q6 #20 cap - Follow Up Plan Condition: GOOD Disposition: HOME/ ROUTINE Instructions: Pancreatitis (DC) Additional Instructions: follow up with [facility] in 2 days final dx-alcoholic pancreatitis, htn cont meds, norvasc erx. renetta bland diet, cleared by gi/surgery Referrals: Bertram Peralta MD [Staff Provider] - Edison De Leon MD, PhD [Staff Provider] -
[2017-09-05 16:21] VITALS: O2SAT 100
== END 2017-09-04 14:50 | disposition home or self-care (01) | DRG 204 ==
LOC: H.ER 07:55 → H.ERHOLD 12:24 → H.MEDSURG1 13:27
PROVIDERS: ADMIT Family Medicine; ATTEND Family Medicine
DX: K85.20 Alcohol induced acute pancreatitis without necrosis or infection (principal); K56.1 Intussusception; Z98.84 Bariatric surgery status; F10.20 Alcohol dependence, uncomplicated; K29.70 Gastritis, unspecified, without bleeding; F41.9 Anxiety disorder, unspecified; F32.9 Major depressive disorder, single episode, unspecified; J45.909 Unspecified asthma, uncomplicated; I10 Essential (primary) hypertension; Z87.891 Personal history of nicotine dependence; Y90.0 Blood alcohol level of less than 20 mg/100 ml